=== PATIENT | female | born 1950 | race Caucasian/White ===

== ENCOUNTER 2016-05-17 12:55 | Outpatient (RCR) | payer BC ==
[~2016-05-17 12:55] MED LIST: CALC-80 PO; CALC-850 PO; CEPH500C PO; CHOL10003 PO; E400C PO; ESTR1TAB66 PO; EXEM25TA4 PO; FLUO20CA42 PO; GLIP10TA13 PO; HYDR-3583 PO; IMIP10TA3 PO; METF-380 PO; MYBETRIQ PO; NALT1TAB PO; OMG1KC PO; OSTEO BIFLEX PO; PNT40TEC PO; ROSU20TA14 PO; VENL150T4 PO
--- OUTSIDE RECORDS SUMMARY | 2016-05-17 12:58 | XMS REPORT | Continuity of Care Document ---
Author Author [facility] Organization [facility] Address Unknown Phone Unavailable Care Team Providers Care Roustabout Crew Name Role Phone Guicho Rhoades PCP [phone] Source Comments Some departments are not documenting in the electronic medical record. If you do not see the information that you expected, contact Release of Information in the Health Information Management department at [phone] for further assistance in locating additional records.[facility] Active Allergies and Adverse Reactions No Known Allergies Current Medications Prescription Sig. Disp. Refills Start End Date Status Date rosuvastatin (CRESTOR) 20 Take 20 mg by mouth Active mg tablet daily. venlafaxine (EFFEXOR) 75 Take 75 mg by mouth twice Active mg tablet daily. imipramine (TOFRANIL) 10 Take 10 mg by mouth at Active mg tablet bedtime daily. pantoprazole DR Take 40 mg by mouth Active (PROTONIX) 40 mg tablet daily. exemestane (AROMASIN) 25 Take 25 mg by mouth daily Active mg Tab after breakfast. vitamin E 400 unit Take 400 Units by mouth Active capsule daily. calcium carbonate/vitamin Take 1 Tab by mouth Active D-3 (OSCAL-500+D) 1250 daily. Calcium Carb mg/200 unit tablet 1250mg delivers 500mg elemental Ca cholecalciferol (Vitamin Take 1,000 Units by mouth Active D3) (VITAMIN D-3) 1,000 daily. units tablet Active Problems Problem Noted Date Breast cancer (HCC) 12/19/2011 Social History Tobacco Use Types Packs/Day Years Used Date Never Smoker Smokeless Tobacco: Never Used Tobacco Cessation: Counseling Given: Yes Comments: Alcohol Use Drinks/Week oz/Week Comments Yes 4 Cans of 2.4 beer Last Filed Vital Signs Vital Sign Reading Time Taken Blood Pressure 145/88 01/18/2013 10:04 AM [employer]RE [employer] Pulse 78 01/18/2013 10:04 AM [employer] Temperature 36.4 C (97.6 F) 01/18/2013 10:04 AM [employer] Respiratory Rate 18 01/18/2013 10:04 AM [employer] Height 1.778 m (5' 10") 01/04/2013 10:06 AM CDT Weight 88.451 kg (195 lb) 01/04/2013 10:06 AM CDT Body Mass Index 27.98 01/04/2013 10:06 AM CDT Oxygen Saturation 94% 12/20/2012 6:17 PM CDT Plan of Care Health Maintenance Due Date Last Done Comments Physical (Comprehensive) 08/30/1959 Exam Pertussis Vaccine 08/30/1963 Tetanus Vaccine 1969 Cervical Cancer Screening 1973 Breast Cancer Screening 1992 Colorectal Cancer 2002 Screening Shingles Vaccine 2012 Influenza Vaccine 11/06/2015 Results from Last 3 Months Not on file
[2016-05-17 13:04] LABS: BASOPHILS % (AUTO) 1 % (0-10); EOSINOPHILS # (AUTO) 0.2 10^3/uL (0.0-0.3); EOSINOPHILS % (AUTO) 3 % (0-10); LYMPHOCYTES # (AUTO) 1.6 X 10^3 (1.0-4.0); LYMPHOCYTES % (AUTO) 25 % (12-44); MEAN CORPUSCULAR HEMOGLOBIN 30 PG (25-34); MEAN CORPUSCULAR HGB CONC 34 G/DL (32-36); MEAN CORPUSCULAR VOLUME 88 FL (80-99); MEAN PLATELET VOLUME 10.5 FL (7.4-10.4); MONOCYTES # (AUTO) 0.5 X 10^3 (0.0-1.0); MONOCYTES % (AUTO) 8 % (0-12); NEUTROPHILS # (AUTO) 4.2 X 10^3 (1.8-7.8); NEUTROPHILS % (AUTO) 64 % (42-75); PLATELET COUNT 228 10^3/uL (130-400); RED BLOOD COUNT 4.56 10^6/uL (4.35-5.85); RED CELL DISTRIBUTION WIDTH 12.8 % (10.0-14.5); WHITE BLOOD COUNT 6.5 10^3/uL (4.3-11.0)
[2016-05-17] MEDS ORDERED: DENOSUMAB 60 MG/1 ML (PROLIA) CANCER CTR SQ SCH (13:30)
[2016-05-17 13:55] LABS: ALANINE AMINOTRANSFERASE 32 U/L (0-55); ALBUMIN 4.1 G/DL (3.2-4.5); ANION GAP 11 MMOL/L (5-14); ASPARTATE AMINO TRANSFERASE 21 U/L (5-34); BILIRUBIN,TOTAL 0.4 MG/DL (0.1-1.0); BLOOD UREA NITROGEN 14 MG/DL (7-18); BUN/CREATININE RATIO 16; CALCIUM 9.7 MG/DL (8.5-10.1); CARBON DIOXIDE 25 MMOL/L (21-32); CHLORIDE 105 MMOL/L (98-107); CREATININE SERUM 0.86 MG/DL (0.60-1.30); GFR ESTIMATED > 60; GLUCOSE 114 MG/DL (70-105); SODIUM 141 MMOL/L (135-145); TOTAL PROTEIN 6.9 G/DL (6.4-8.2)
[2016-07-29] MEDS ORDERED: METF500T4 PO ×2 (10:32→13:16)
[2016-07-29] MEDS ORDERED: CALC-694 PO (10:32)
[2016-07-29] MEDS ORDERED: VNL75T PO (10:32)
[2016-07-29] MEDS ORDERED: EXEM25TA4 PO (10:32)
[2016-07-29] MEDS ORDERED: GLUC-144 PO (10:32)
[2016-07-29] MEDS ORDERED: MIRA50TA PO (10:33)
[2016-07-29] MEDS ORDERED: AMOX-355 PO (13:16)
[2016-07-29] MEDS ORDERED: ASPI-808 PO (13:17)
== END 2016-08-15 | disposition home or self-care (01) ==
LOC: ONC 12:55
PROVIDERS: ATTEND Internal Medicine Hematology & Oncology
DX: C50.412 Malignant neoplasm of upper-outer quadrant of left female breast (principal); M81.0 Age-related osteoporosis without current pathological fracture; Z17.0 Estrogen receptor positive status [ER+]; Z92.21 Personal history of antineoplastic chemotherapy; Z79.811 Long term (current) use of aromatase inhibitors
CPT/HCPCS: 36415; 80053; 85025; 96372; 99213

== ENCOUNTER 2016-07-28 20:49 | Inpatient (IN) | payer BC ==
[~2016-07-28] VITALS: Ht 177.8 cm; Wt 91.6 kg
--- NOTE | 2016-07-28 21:05 | Diagnostic Imaging Report ---
Indication: New onset right-sided weakness. Comparison: None. Technique: Routine head CT was performed without contrast. Discussion: No intracranial hemorrhage, mass, midline shift, or hydrocephalus. The ventricles and sulci are normal size and configuration for age. The visualized orbits, paranasal sinuses, mastoid air cells, and calvarium are unremarkable. Impression: 1. Negative head CT. Dictated by: Dictated on workstation # [id number]
--- NOTE | 2016-07-28 21:06 | Diagnostic Imaging Report ---
Indication: Right-sided weakness. Discussion: Single AP view of the chest was obtained, comparison 01/04/2011. No focal consolidation, pleural fluid or pneumothorax. Normal heart size. No osseous abnormality. Impression: Negative portable chest. Dictated by: Dictated on workstation # [id number]
[2016-07-28 21:09] LABS: BASOPHILS % (AUTO) 1 % (0-10); EOSINOPHILS # (AUTO) 0.1 10^3/uL (0.0-0.3); EOSINOPHILS % (AUTO) 2 % (0-10); LYMPHOCYTES # (AUTO) 2.1 X 10^3 (1.0-4.0); LYMPHOCYTES % (AUTO) 30 % (12-44); MEAN CORPUSCULAR HEMOGLOBIN 30 PG (25-34); MEAN CORPUSCULAR HGB CONC 33 G/DL (32-36); MEAN CORPUSCULAR VOLUME 89 FL (80-99); MEAN PLATELET VOLUME 10.2 FL (7.4-10.4); MONOCYTES # (AUTO) 0.6 X 10^3 (0.0-1.0); MONOCYTES % (AUTO) 9 % (0-12); NEUTROPHILS # (AUTO) 4.2 X 10^3 (1.8-7.8); NEUTROPHILS % (AUTO) 59 % (42-75); PLATELET COUNT 245 10^3/uL (130-400); RED BLOOD COUNT 4.88 10^6/uL (4.35-5.85); WHITE BLOOD COUNT 7.1 10^3/uL (4.3-11.0)
[2016-07-28 21:23] LABS: PROTHROMBIN TIME PATIENT 12.7 SEC (12.2-14.7)
[2016-07-28 21:24] LABS: PARTIAL THROMBOPLASTIN TIME 24 SEC (24-35)
[2016-07-28 21:29] LABS: ALANINE AMINOTRANSFERASE 40 U/L (0-55); ALBUMIN 4.4 G/DL (3.2-4.5); ALCOHOL 52 MG/DL (<10); ANION GAP 14 MMOL/L (5-14); ASPARTATE AMINO TRANSFERASE 24 U/L (5-34); BILIRUBIN,TOTAL 0.4 MG/DL (0.1-1.0); BLOOD UREA NITROGEN 13 MG/DL (7-18); BUN/CREATININE RATIO 15; CALCIUM 9.4 MG/DL (8.5-10.1); CARBON DIOXIDE 19 MMOL/L (21-32); CHLORIDE 105 MMOL/L (98-107); CREATININE SERUM 0.89 MG/DL (0.60-1.30); GFR ESTIMATED > 60; GLUCOSE 194 MG/DL (70-105); MAGNESIUM 2.2 MG/DL (1.8-2.4); POTASSIUM 3.7 MMOL/L (3.6-5.0); SODIUM 138 MMOL/L (135-145); TOTAL PROTEIN 7.3 G/DL (6.4-8.2)
[2016-07-28 21:32] LABS: BILIRUBIN,URINE NEGATIVE (NEGATIVE); KETONES,URINE NEGATIVE (NEGATIVE); LEUKOCYTE ESTERASE ,URINE 1+ (NEGATIVE); NITRITE,URINE POSITIVE (NEGATIVE); PH,URINE 6 (5-9); PROTEIN,URINE NEGATIVE (NEGATIVE); UROBILINOGEN,URINE NORMAL (NORMAL)
[2016-07-28 21:35] LABS: TROPONIN I < 0.30 NG/ML (<0.30)
[2016-07-28] MEDS ORDERED: ASPIRIN 81 MG CHEW (CHILDREN'S ASA) ONE (21:37)
[2016-07-28] MEDS ORDERED: ASPIRIN 81 MG CHEW (CHILDREN'S ASA) PO ONE (21:45)
[2016-07-28 22:46] VITALS: BP 149/78
[2016-07-28 23:00] VITALS: BP 141/78
[2016-07-28 23:15] VITALS: BP 123/81
[2016-07-28] MEDS ORDERED: cefTRIAXone 1 GM (ROCEPHIN) VIAL ONE (23:15)
[2016-07-28] MEDS ORDERED: NS (IVPB) 250 ML ONE (23:15)
[2016-07-28] MEDS ORDERED: D5 1/2 NS 1000 ML IV SOLUTION 1,000 ML IV ONE (23:15)
[2016-07-28 23:30] VITALS: BP 136/75
[2016-07-28 23:45] VITALS: BP 120/71
[2016-07-29] VITALS (17 sets, daily range): BP systolic 109–150; BP diastolic 51–81
[2016-07-29] MEDS ORDERED: D5 1/2 NS 1000 ML IV SOLUTION 1,000 ML IV SCH (00:45)
[2016-07-29 03:54] LABS: BASOPHILS % (AUTO) 1 % (0-10); EOSINOPHILS # (AUTO) 0.1 10^3/uL (0.0-0.3); EOSINOPHILS % (AUTO) 1 % (0-10); LYMPHOCYTES # (AUTO) 1.7 X 10^3 (1.0-4.0); LYMPHOCYTES % (AUTO) 22 % (12-44); MEAN CORPUSCULAR HEMOGLOBIN 30 PG (25-34); MEAN CORPUSCULAR HGB CONC 34 G/DL (32-36); MEAN CORPUSCULAR VOLUME 89 FL (80-99); MEAN PLATELET VOLUME 10.7 FL (7.4-10.4); MONOCYTES # (AUTO) 0.8 X 10^3 (0.0-1.0); MONOCYTES % (AUTO) 10 % (0-12); NEUTROPHILS # (AUTO) 5.3 X 10^3 (1.8-7.8); NEUTROPHILS % (AUTO) 67 % (42-75); PLATELET COUNT 206 10^3/uL (130-400); RED BLOOD COUNT 4.46 10^6/uL (4.35-5.85); RED CELL DISTRIBUTION WIDTH 12.8 % (10.0-14.5)
[2016-07-29 04:11] LABS: ALANINE AMINOTRANSFERASE 34 U/L (0-55); ALBUMIN 3.7 G/DL (3.2-4.5); ANION GAP 11 MMOL/L (5-14); ASPARTATE AMINO TRANSFERASE 18 U/L (5-34); BILIRUBIN,TOTAL 0.5 MG/DL (0.1-1.0); BLOOD UREA NITROGEN 11 MG/DL (7-18); BUN/CREATININE RATIO 14; CALCIUM 8.5 MG/DL (8.5-10.1); CARBON DIOXIDE 21 MMOL/L (21-32); CHLORIDE 105 MMOL/L (98-107); GFR ESTIMATED > 60; GLUCOSE 296 MG/DL (70-105); PHOSPHORUS 3.7 MG/DL (2.3-4.7); POTASSIUM 3.9 MMOL/L (3.6-5.0); SODIUM 137 MMOL/L (135-145); TOTAL PROTEIN 6.4 G/DL (6.4-8.2)
--- NOTE | 2016-07-29 04:41 | ED Neurological Problem ---
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 STATES SHE WENT TO CLAP ET HER HANDS WOULD NOT MEET. PT REPORTS SHE NOTED NUMBNESS AT THAT TIME. PT A/OX3 AT THIS TIME Nursing Sepsis Screen: No Definite Risk Source: patient History of Present Illness Time seen by provider: 20:52 Initial Comments PT ARRIVES VIA POV PT STATES SHE WAS AT A [employer], AND APPROXIMATELY 45 MINUTES AGO, SHE BEGAN TO HAVE RIGHT FACIAL TINGLING, TINGLING TO RIGHT FINGERS--NOT REST OF HAND OR RIGHT ARM, AND NOTICED SHE WAS DRAGGING HER RIGHT LEG A LITTLE WHEN SHE WALKED. ALSO NOTICED WHEN SHE TRIED TO CLAP, HER HANDS WOULDN'T MEET C/O SLIGHT HEADACHE--RATES 2/10 NO NUMBNESS TO RIGHT LEG PT STATES SHE WAS VEERING TO THE RIGHT A LITTLE WHEN SHE WALKED NO VISION CHANGES NO DIFFICULTY SWALLOWING NO DIZZINESS NO NAUSEA/VOMITING NO PRIOR HISTORY OF SIMILAR PT STATES SHE HAS HAD 2 [employer]. PCP: DR. DOCKERY ONCOLOGIST: DR. LOPEZ Allergies and Home Medications Allergies Coded Allergies: No Known Drug Allergies (Unverified , 09/11/09) Home Medications Calcium Carbonate/Vitamin D3 1 Each Tab.chew, 2 EACH PO, (Reported) Cholecalciferol 1,000 Unit Tablet, 2,000 UNIT PO DAILY, (Reported) Exemestane 25 Mg Tablet, 25 MG PO DAILY, (Reported) Glipizide 10 Mg Tablet, 1 EACH PO DAILY, (Reported) Metformin Hcl 1,000 Mg Tablet, 1 EACH PO DAILY, (Reported) Naltrexone HCl/Bupropion HCl 1 Each Tablet.er, 1 EACH PO DAILY, (Reported) Pantoprazole Sodium 40 Mg Tablet.dr, 1 TAB PO DAILY, (Reported) Rosuvastatin Calcium 20 Mg Tablet, 1 EACH PO DAILY, (Reported) Venlafaxine Hcl 150 Mg Tab.osm.24, 150 MG PO DAILY, (Reported) Vitamin E Acetate 400 Unit Capsule, 400 UNIT PO DAILY, (Reported) [Mybetriq] , 50 MG PO DAILY, (Reported) Constitutional: no symptoms reported, No dizziness Eyes: No Symptoms Reported Ears, Nose, Mouth, Throat: no symptoms reported Respiratory: no symptoms reported Cardiovascular: no symptoms reported Gastrointestinal: no symptoms reported Genitourinary: no symptoms reported Musculoskeletal: see HPI Skin: no symptoms reported Psychiatric/Neurological: See HPI Endocrine: No Symptoms Reported, Other (ACCUCHECK WAS 195 THIS AM AT HOME) Hematologic/Lymphatic: No Symptoms Reported Past Wmxreqw-Vyosgr-Fwlzfw Hx Patient Social History Alcohol Use: Occasionally Uses Recreational Drug Use: No Smoking Status: Never a Smoker Recent Foreign Travel: No Contact w/Someone Who Travel: No Recent Infectious Disease Expo: No Recent Hopitalizations: No Physical Abuse Screen: No Sexual Abuse: No Seasonal Allergies Seasonal Allergies: No Surgeries HX Surgeries: Yes (LEFT BREAST LUMPECTOMY; CARDIAC CATH--NO INTERVENTION) Surgeries: Breast Respiratory Hx Respiratory Disorders: No Cardiovascular Hx Cardiac Disorders: Yes Cardiac Disorders: High Cholesterol Neurological Hx Neurological Disorders: No Reproductive System Hx Reproductive Disorders: No Sexually Transmitted Disease: No Genitourinary Hx Genitourinary Disorders: Yes (over active bladder on medication) Gastrointestinal Hx Gastrointestinal Disorders: No Musculoskeletal Hx Musculoskeletal Disorders: Yes Musculoskeletal Disorders: Arthritis Endocrine Hx Endocrine Disorders: Yes (RECENTLY DIAGNOSED) Endocrine Disorders: Diabetes, Non-Insulin dep HEENT HX ENT Disorders: Yes HEENT Disorders: Eye Injury Loss of Vision: Left Cancer Hx Cancer: Yes (LEFT BREAST CANCER 2010--S/P LUMPECTOMY, CHEMO AND 33 ROUNDS OF RADIATION) Cancer: Breast Psychosocial Hx Psychiatric Problems: Yes Behavioral Health Disorders: Anxiety, Depression Integumentary HX Skin/Integumentary Disorder: No Blood Transfusions Hx Blood Disorders: No Physical Exam Vital Signs Vital Sign - Last 12Hours 07/28/16 21:00 Temp 98.8 Pulse 69 Resp 24 B/P (MAP) 177/111 Pulse Ox 95 O2 Delivery Room Air Capillary Refill : Less Than 3 Seconds General Appearance: WD/WN, no apparent distress, other (TEARFUL) HEENT: PERRL/EOMI, normal ENT inspection, TMs normal, pharynx normal, other ( TONGUE IS MIDLINE, NO FACIAL DROOP) Neck: non-tender, full range of motion, supple, normal inspection, No carotid bruit Respiratory: normal breath sounds, no respiratory distress, no accessory muscle use Cardiovascular: normal peripheral pulses, regular rate, rhythm, no edema, no gallop, no JVD, no murmur Peripheral Pulses: 2+ Dorsalis Pedis (R), 2+ Left Dors-Pedis (L), 2+ Radial Pulses (R), 2+ Radial Pulses (L) Gastrointestinal: normal bowel sounds, non tender, soft, no organomegaly, no pulsatile mass Back: normal inspection, no CVA tenderness, no vertebral tenderness Extremities: normal range of motion, non-tender, normal inspection, no pedal edema, no calf tenderness, normal capillary refill Neurologic/Psychiatric: long term II-XII nml as tested, alert, oriented x 3, No aphasia, No EOM palsy, No facial droop, other (SUBJECTIVE PARESTHESIAS TO RIGHT SIDE OF FACE, INCLUDING FOREHEAD, BUT HAS SENSATION TO LIGHT TOUCH. VERY SLIGHT WEAKNESS TO RIGHT ARM AND RIGHT LEG, WITH VERY SLIGHT PRONATOR DRIFT TO RIGHT ARM, BUT NO DRIFT ON RIGHT LEG. GAIT NOT ASSESSED DURING ER STAY) Crainal Nerves: normal hearing, normal speech, PERRL Coordination/Gait: normal finger to nose Motor/Sensory: pronator drift (R) (SLIGHT), weak motor strength RUE (SLIGHT), weak motor strength RLE (SLIGHT) Skin: normal color, warm/dry Stroke Onset of Symptoms Date of Onset of Symptoms: July 28, 2016 Onset of Symptoms: Yes (45 MINUTES PRIOR TO ARRIVAL) Symptoms onset unknown: No NIH Stroke Scale Assessment Level of Consciousness: 0=Alert Level of Consciousness-Questio: 0=Answers both month/age LOC Commands: 0=Performs both tasks Gaze: 0=Normal Visual Reed: 0=No visual loss Facial Movement (Facial Paresi: 0=Normal symmetrical mnt Motor Function-Arms Right: 1=Drift Motor Function-Arms Left: 0=No drift Motor Function-Legs Right: 0=No drift Motor Function-Legs Left: 0=No drift Limb Ataxia: 0=Absent Sensory: 0=Normal:no loss Best Language: 0=No aphasia Dysarthria: 0=Normal Extinction & Inattention: 0=No abnormality Stroke Thrombolytic Exclusion Age 18 or Over: Yes Acute intenal hemorrhage: No History of CVA: No Uncontrolled Coagulation Defec: No Intracranial Hemorrhage: No Severe Hypertension: Yes GI or Bleed: No Subarachnoid Hemorrhage: No Intracranial Neoplasm/Aneurysm: No Oral Anticoagulants: No Surgery or Trauma: No Puncture of Non-Compressible V: No Recent CPR: No Diabetic Hemorrhagic Retinopat: No Organ Biopsy: No Recent Obstetric Delivery: No Glucose: No Significant Hepatic Dysfunctio: No NIH Stoke Scale >22: No Bacterial Endocarditis: No Pericarditis: No Improving Symptoms: Yes Platelets: No TPA Contraindication: No IV - TPa Received IV - TPa Procedure Performed?: No (DISCUSSED WITH [facility] AND TPA WAS NOT ADVISED DUE TO LOW NIH SCORE) Progress/Results/Core Measures Results/Orders Lab Results Laboratory Tests Test 07/28/16 21:02 07/28/16 21:08 Range/Units White Blood Count 7.1 4.3-11.0 10^3/uL Red Blood Count 4.88 4.35-5.85 10^6/uL Hemoglobin 14.4 11.5-16.0 G/DL Hematocrit 43 35-52 % Mean Corpuscular Volume 89 80-99 FL Mean Corpuscular Hemoglobin 30 25-34 PG Mean Corpuscular Hemoglobin Concent 33 32-36 G/DL Red Cell Distribution Width 13.0 10.0-14.5 % Platelet Count 245 130-400 10^3/uL Mean Platelet Volume 10.2 7.4-10.4 FL Neutrophils (%) (Auto) 59 42-75 % Lymphocytes (%) (Auto) 30 12-44 % Monocytes (%) (Auto) 9 0-12 % Eosinophils (%) (Auto) 2 0-10 % Basophils (%) (Auto) 1 0-10 % Neutrophils # (Auto) 4.2 1.8-7.8 X 10^3 Lymphocytes # (Auto) 2.1 1.0-4.0 X 10^3 Monocytes # (Auto) 0.6 0.0-1.0 X 10^3 Eosinophils # (Auto) 0.1 0.0-0.3 10^3/uL Basophils # (Auto) 0.0 0.0-0.1 10^3/uL Prothrombin Time 12.7 12.2-14.7 SEC INR Comment 1.0 0.8-1.4 Activated Partial Thromboplast Time 24 24-35 SEC D-Dimer < 0.27 0.00-0.49 UG/ML Sodium Level 138 135-145 MMOL/L Potassium Level 3.7 3.6-5.0 MMOL/L Chloride Level 105 98-107 MMOL/L Carbon Dioxide Level 19 L 21-32 MMOL/L Anion Gap 14 5-14 MMOL/L Blood Urea Nitrogen 13 7-18 MG/DL Creatinine 0.89 0.60-1.30 MG/DL Estimat Glomerular Filtration Rate > 60 BUN/Creatinine Ratio 15 Glucose Level 194 H 70-105 MG/DL Calcium Level 9.4 8.5-10.1 MG/DL Magnesium Level 2.2 1.8-2.4 MG/DL Total Bilirubin 0.4 0.1-1.0 MG/DL Aspartate Amino Transf (AST/SGOT) 24 5-34 U/L Alanine Aminotransferase (ALT/SGPT) 40 0-55 U/L Alkaline Phosphatase 80 40-136 U/L Troponin I < 0.30 <0.30 NG/ML Total Protein 7.3 6.4-8.2 G/DL Albumin 4.4 3.2-4.5 G/DL Serum Alcohol 52 H <10 MG/DL Glucometer 185 H 70-110 MG/DL My Orders Orders - MADELYN DOWD DO Cbc With Automated Diff (07/28/16 20:51) Protime With Inr (07/28/16 20:51) Partial Thromboplastin Time (07/28/16 20:51) Comprehensive Metabolic Panel (07/28/16 20:51) Fibrin Degradation Products (07/28/16 20:51) Troponin I (07/28/16 20:51) Ua Culture If Indicated (07/28/16 20:51) Chest 1 View, Ap/Pa Only (07/28/16 20:51) Ekg Tracing (07/28/16 20:51) Nothing By Mouth (07/29/16 Breakfast) Accucheck Stat ONCE (07/28/16 20:51) Saline Lock/Iv-Start (07/28/16 20:51) Saline Lock/Iv-Start (07/28/16 20:51) Vital Signs-Stroke Q1H (07/28/16 20:51) Ct Head Wo-R/O Stroke (07/28/16 20:51) O2 (07/28/16 20:51) Intake & Output 06,14,22 (07/28/16 20:51) Monitor-Rhythm Ecg Trace Only (07/28/16 20:51) Dysphagia Screening Tool (07/28/16 20:51) Post Thrombolytic Adminstratio (07/28/16 20:51) Alcohol (07/28/16 21:04) Drug Screen Stat (Urine) (07/28/16 21:04) Magnesium (07/28/16 21:04) Vital Signs/I&O Vital Sign - Last 12Hours 07/28/16 21:00 Temp 98.8 Pulse 69 Resp 24 B/P (MAP) 177/111 Pulse Ox 95 O2 Delivery Room Air Blood Pressure Mean: 73 Point of Care Testing Finger Stick Blood Glucose: 185 Progress Note : Progress Note BP DOWN WITHOUT TREATMENT PT STATES TINGLING IN RIGHT FINGERS IS IMPROVING AT TIME OF ADMIT, AND IS ALMOST BACK TO NORMAL HEADACHE IS EASING ECG Initial ECG Impression Time: 21:36 Initial ECG Rate: 67 Initial ECG Rhythm: Normal Sinus Initial ECG Impression: Normal Initial ECG Comparisson: No Previous ECG Available Diagnostic Imaging Comments CXR--NO ACUTE PROCESS CT HEAD--NO ACUTE PROCESS PER RADIOLOGIST REPORTS @ 2110 Reviewed: Reviewed by Me Departure Communication Progress Notes 2112--CALLED [facility], SPOKE WITH DR. GARCIA, NEUROLOGIST. HE DOES NOT ADVISE TPA DUE TO LOW STROKE SCALE AND IMPROVING SYMPTOMS-FEELS RISKS OUTWEIGH BENEFITS. DOES ADVISED 81 MG ASPIRIN NOW AND DAILY 2113--SPOKE WITH DR. ELLIS, ACCEPTS PT FOR ADMIT TO ICU, WILL OBTAIN MRI, CAROTID DOPPLER AND ECHOCARDIOGRAM, AND CONSULT CARDIOLOGY 2117-=-ATTEMPTING TO CONTACT DR. VEGA, MESSAGE LEFT ON CELL 2125--SPOKE WITH DR. VEGA AND INFORMED OF CONSULT. Impression Impression: Primary Impression: CVA WITH RIGHT SIDE WEAKNESS AND PARESTHESIAS Additional Impressions: Labile hypertension NIDDM Hyperlipemia UTI (urinary tract infection) Disposition: ADMITTED INPATIENT Condition: Improved Decision to Admit Reason: Admit from ER (General) Decision to Admit/Date: July 28, 2016 Time/Decision to Admit Time: 21:15 Departure-Patient Inst. Referrals: RENA DOCKERY MD (PCP) Primary Care Physician MADELYN DOWD DO July 29, 2016 04:41
[2016-07-29] MEDS ORDERED: MAGNESIUM 1 GM/100 ML IVPB 100 ML IV SCH (06:00)
[2016-07-29] MEDS ORDERED: inSUlin (REGULAR) HUMAN 1 UNIT/0.01 ML (CHARGE PER UNIT) SC SCH (06:00)
[2016-07-29] MEDS ORDERED: KCL 20 MEQ TAB (K-DUR) PO SCH (06:00)
[2016-07-29] MEDS ORDERED: POTASSIUM CL 10MEQ/50ML IVPB 50 ML IV SCH (06:00)
--- NOTE | 2016-07-29 06:14 | Pulmonary Consultation ---
History of Present Illness History of Present Illness Date of Consultation 07/29/16 06:08 Date of Admission History of Present Illness 65yo presented to ED secondary to right sided nubness and weakness onset 35min prior to arrival. Pt was at [employer] and she noticed she could not clap. Upon ED arrival her NIH was 1 and resolved to NIH of 0 upon ICU admission. No prior hx of stroke like symptoms. I am consulted for ICU management. Head CT is negative. found to have UTI and rocephin has been started. Allergies and Home Medications Allergies Coded Allergies: No Known Drug Allergies (Unverified , 09/11/09) Home Medications Calcium Carbonate/Vitamin D3 1 Each Tab.chew, 2 EACH PO, (Reported) Cholecalciferol 1,000 Unit Tablet, 2,000 UNIT PO DAILY, (Reported) Exemestane 25 Mg Tablet, 25 MG PO DAILY, (Reported) Glipizide 10 Mg Tablet, 1 EACH PO DAILY, (Reported) Metformin Hcl 1,000 Mg Tablet, 1 EACH PO DAILY, (Reported) Naltrexone HCl/Bupropion HCl 1 Each Tablet.er, 1 EACH PO DAILY, (Reported) Pantoprazole Sodium 40 Mg Tablet.dr, 1 TAB PO DAILY, (Reported) Rosuvastatin Calcium 20 Mg Tablet, 1 EACH PO DAILY, (Reported) Venlafaxine Hcl 150 Mg Tab.osm.24, 150 MG PO DAILY, (Reported) Vitamin E Acetate 400 Unit Capsule, 400 UNIT PO DAILY, (Reported) [Mybetriq] , 50 MG PO DAILY, (Reported) Past Mpnrtjo-Qlzptb-Mkntdp Hx Patient Social History Alcohol Use: Occasionally Uses Recreational Drug Use: No Smoking Status: Never a Smoker Recent Foreign Travel: No Contact w/Someone Who Travel: No Recent Infectious Disease Expo: No Recent Hopitalizations: No Physical Abuse Screen: No Sexual Abuse: No Seasonal Allergies Seasonal Allergies: No Surgeries HX Surgeries: Yes (LEFT BREAST LUMPECTOMY; CARDIAC CATH--NO INTERVENTION) Surgeries: Breast Respiratory Hx Respiratory Disorders: No Cardiovascular Hx Cardiac Disorders: Yes Cardiac Disorders: High Cholesterol Neurological Hx Neurological Disorders: No Reproductive System Hx Reproductive Disorders: No Sexually Transmitted Disease: No Genitourinary Hx Genitourinary Disorders: Yes (over active bladder on medication) Gastrointestinal Hx Gastrointestinal Disorders: No Musculoskeletal Hx Musculoskeletal Disorders: Yes Musculoskeletal Disorders: Arthritis Endocrine Hx Endocrine Disorders: Yes (RECENTLY DIAGNOSED) Endocrine Disorders: Diabetes, Non-Insulin dep HEENT HX ENT Disorders: Yes HEENT Disorders: Eye Injury Loss of Vision: Left Cancer Hx Cancer: Yes (LEFT BREAST CANCER 2010--S/P LUMPECTOMY, CHEMO AND 33 ROUNDS OF RADIATION) Cancer: Breast Psychosocial Hx Psychiatric Problems: Yes Behavioral Health Disorders: Anxiety, Depression Integumentary HX Skin/Integumentary Disorder: No Blood Transfusions Hx Blood Disorders: No Review of Systems Constitutional: Malaise, Weakness, No: Chills, Fever, Other, Sweats Eyes: No: Conjunctivae inflammation, Eyelid inflammation, Other, Pain, Redness , Vision change ENT: No: Ear discharge, Ear pain, Mouth pain, Mouth swelling, Nose congestion, Nose discharge, Nose pain, Other, Throat pain, Throat swelling Respiratory: No: Cough, Dry, Hemoptysis, Other, Pleuritic Pain, SOB with excertion, Shortness of breath, Sputum, Wheezing, Wheezing Cardiovascular: Lt Headedness, No: Chest Pain, Edema, Orthopnea, Other, Palpitations, Paroxysmal Noc. Dyspnea Gastrointestinal: No: Abdominal Pain, Constipation, Diarrhea, Hematochezia, Melena, Nausea, Other, Vomiting Genitourinary: No Dysuria, No Frequency, No Incontinence, No Hematuria, No Retention, No Other Musculoskeletal: No: arm pain, back pain, foot pain, hand pain, leg pain, neck pain, other, shoulder pain Skin: No: Bruising, Jaundice, Lesions, Other, Rash Neurological: Change in speech, Confusion, Incoordination, Numbness, Weakness, No: Seizures Exam Exam Vital Signs Date Time Temp Pulse Resp B/P (MAP) Pulse Ox O2 Delivery O2 Flow Rate FiO2 07/29/16 04:00 99.5 59 19 109/55 96 07/29/16 04:00 97 07/29/16 03:00 68 16 125/63 95 07/29/16 02:00 67 16 110/60 95 07/29/16 01:30 74 12 130/66 97 07/29/16 01:00 67 17 113/51 95 07/29/16 01:00 68 07/29/16 00:30 67 20 119/54 96 07/29/16 00:00 64 17 129/70 99 07/29/16 00:00 97 07/28/16 23:45 65 8 120/71 97 07/28/16 23:30 67 12 136/75 96 07/28/16 23:15 67 23 123/81 96 07/28/16 23:00 65 17 141/78 96 07/28/16 22:54 68 07/28/16 22:46 98.2 67 16 149/78 96 07/28/16 22:27 66 20 94 07/28/16 21:00 98.8 69 24 177/111 95 Room Air I & O 07/29/16 07:00 Intake Total 250 ml Balance 250 ml General Appearance: No Apparent Distress, WD/WN, Anxious HEENT: PERRL/EOMI, Pharynx Normal Neck: Full Range of Motion, Normal Inspection, Non Tender, Supple Respiratory: Lungs Clear, Normal Breath Sounds, No Accessory Muscle Use, No Respiratory Distress, Accessory Muscle Use Cardiovascular: Regular Rate, Rhythm, No Edema, No JVD, Normal Peripheral Pulses Capillary Refill: Less Than 3 Seconds Peripheral Pulses: 2+ Dorsalis Pedis (R), 2+ Left Dors-Pedis (L), 2+ Radial Pulses (R), 2+ Radial Pulses (L) Gastrointestinal: normal bowel sounds, non tender, soft, no organomegaly, no pulsatile mass Extremity: Normal Capillary Refill, Normal Inspection, Normal Range of Motion Neurologic/Psychiatric: Alert, Oriented x3 Skin: Normal Color Lymphatic: No Adenopathy Results Lab Laboratory Tests 07/28/16 21:02 07/29/16 03:37 Assessment/Plan Assessment/Plan TIA -NIH is now 0. All symptoms resolved -carotid dopplers, echo, brain MRI are pending UTI -Rocephin hx of breast cancer NIDDM Pt is doing much better will make her ICU step down status. 255 45 min was spent with patient Clinical Quality Measures DVT/VTE Risk/Contraindication: Risk Factor Score Per Nursin RFS Level Per Nursing on Admit: 3=High Stroke: Date of last known well: July 28, 2016 Symptoms onset unknown: No JOHNNY IBARRA DO July 29, 2016 06:14
[2016-07-29] MEDS: inSUlin (REGULAR) HUMAN 1 UNIT/0.01 ML (CHARGE PER UNIT) SC SCH ×2 (06:57→11:37)
--- NOTE | 2016-07-29 08:24 | Short Stay Summary-Hospitalist ---
HPI History of Present Illness: HPI/Chief Complaint CC: TIA versus CVA HPI: This is a 65yoWF clinic patient of Dr Rhoades'isaiah that presents to the ER w/ slurred speech and dysarthria 20 minutes before symptoms. Stroke protocol was initiated and CT brain was normal and her symptoms improved while w/u ensued. stroke center was contacted by Dr Ortega in ER and tpa was not indicated since her symptoms were improving. By the time she arrived in the ICU her symptoms were completely resolved. Currently she is doing well and wants to go home. I informed her that we needed a few more tests that included carotid USG, ECHO and MRI and as long as they were normal we would do our best to DC her home for further w/u by PCP. 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[employer]) Alcohol Use: Occasionally Uses Recreational Drug Use: No Smoking Status: Never a Smoker Physical Abuse Screen: No Sexual Abuse: No Recent Foreign Travel: No Contact w/other who traveled: No Recent Hopitalizations: No Recent Infectious Disease Expo: No Seasonal Allergies Seasonal Allergies: No Surgeries HX Surgeries: Yes (LEFT BREAST LUMPECTOMY; CARDIAC CATH--NO INTERVENTION) Surgeries: Breast Respiratory Hx Respiratory Disorders: No Cardiovascular Hx Cardiovascular Disorders: Yes Cardiac Disorders: High Cholesterol Neurological Hx Neurological Disorders: No Reproductive System Hx Reproductive Disorders: No Sexually Transmitted Disease: No Genitourinary Hx Genitourinary Disorders: Yes (over active bladder on medication) Gastrointestinal Hx Gastrointestinal Disorders: No Musculoskeletal Hx Musculoskeletal Disorders: Yes Musculoskeletal Disorders: Arthritis Endocrine Hx Endocrine Disorders: Yes (RECENTLY DIAGNOSED) Endocrine Disorders: Diabetes, Non-Insulin dep HEENT HX ENT Disorders: Yes HEENT Disorders: Eye Injury Loss of Vision: Left Cancer Hx Cancer: Yes (LEFT BREAST CANCER 2010--S/P LUMPECTOMY, CHEMO AND 33 ROUNDS OF RADIATION) Cancer: Breast Psychosocial Hx Psychiatric Problems: Yes Behavioral Health Disorders: Anxiety, Depression Integumentary HX Skin/Integumentary Disorder: No Blood Transfusions Hx Blood Disorders: No Review of Systems Constitutional: see HPI, weakness EENTM: no symptoms reported Respiratory: no symptoms reported Cardiovascular: no symptoms reported Gastrointestinal: no symptoms reported Musculoskeletal: no symptoms reported Skin: no symptoms reported Psychiatric/Neurological: Numbness, Paresthesia, Tingling All Other Systems Reviewed Negative Unless Noted: Yes Physical Exam Physical Exam Vital Signs Vital Sign - Last 12Hours 07/28/16 21:00 Temp 98.8 Pulse 69 Resp 24 B/P (MAP) 177/111 Pulse Ox 95 O2 Delivery Room Air Capillary Refill : Less Than 3 Seconds General Appearance: No Apparent Distress, WD/WN, Chronically ill Eyes: Bilateral Eye Normal Inspection, Bilateral Eye PERRL HEENT: PERRL/EOMI, Normal ENT Inspection, Pharynx Normal Neck: Full Range of Motion, Normal Inspection, Non Tender, Supple, Carotid Bruit Respiratory: Chest Non Tender, Lungs Clear, Normal Breath Sounds, No Accessory Muscle Use, No Respiratory Distress Cardiovascular: Regular Rate, Rhythm, No Edema, No Gallop, No JVD, No Murmur, Normal Peripheral Pulses Gastrointestinal: Normal Bowel Sounds, No Organomegaly, No Pulsatile Mass, Non Tender, Soft Back: Normal Inspection, No CVA Tenderness, No Vertebral Tenderness Extremity: Normal Capillary Refill, Normal Inspection, Normal Range of Motion, Non Tender, No Calf Tenderness, No Pedal Edema Neurologic/Psychiatric: Alert, Oriented x3, No Motor/Sensory Deficits, Normal Mood/Affect Skin: Normal Color, Warm/Dry Lymphatic: No Adenopathy Results Results/Procedures Lab Laboratory Tests 07/28/16 21:02 07/29/16 03:37 Short Stay Diagnosis Discharge Diagnosis-Short Stay Admission Diagnosis Assessment: TIA versus CVA with symptoms completely resolved not a tpa candidate DM long-standing Breast cancer hx HLP New onset HTN? Final Discharge Diagnosis Assessment: TIA versus CVA with symptoms completely resolved not a tpa candidate DM long-standing Breast cancer hx HLP New onset HTN? Conclusion Plan Plan: MRI brain Carotid USG Cardiology and Lumber Checker consultations appreciated Check HGBA1C Reconcile home meds Anti-platelet therapy? DC home hopefully today Clinical Quality Measures DVT/VTE Risk/Contraindication: Risk Factor Score Per Nursin RFS Level Per Nursing on Admit: 3=High Stroke: Date of last known well: July 28, 2016 Symptoms onset unknown: NATALI Centeno DO July 29, 2016 08:24
--- NOTE | 2016-07-29 08:30 | Speech Therapy Progress Note ---
Therapy Progress Note Orders received for speech consult. Speech services not available this date. Notified nursing. Nursing reports that patient did pass the bedside swallow assessment performed by nursing. Pt will likely have a short stay, but if she is still here, she will be seen by speech therapist 07/30/16. DELMAR ADAMSON PT July 29, 2016 08:30
[2016-07-29] MEDS ORDERED: ASPIRIN E.C. 81 MG (ECOTRIN) TAB PO SCH (09:00)
[2016-07-29] MEDS ORDERED: NS 100 ML (IVPB) BAG IV ONE (09:15)
[2016-07-29] MEDS ORDERED: IOHEXOL 350 MG/ML 100 ML (OMNIPAQUE 350) VIAL IV ONE (09:15)
--- NOTE | 2016-07-29 09:34 | Diagnostic Imaging Report ---
PROCEDURE: US Carotid Duplex Bilateral. TECHNIQUE: Multiple real-time grayscale images were obtained over the carotid arteries in various projections bilaterally. Additional duplex Doppler and color Doppler images were also obtained. INDICATION: Right-sided numbness. Slurred speech. FINDINGS: There is minimal atherosclerotic plaque seen on grayscale images. Color Doppler demonstrates patency of the common, internal, and external carotid arteries bilaterally. The vertebral arteries demonstrate retrograde flow on the right side and antegrade flow on the left side. The peak systolic velocities in the right ICA are: 102, 102, and 104 cm/s from proximal to distal. In the left ICA, the velocities are: 63, 93, and 107 cm/s. The ICA/CCA ratios are up to 0.7 on the right and up to 1.0 on the left. IMPRESSION: 1. Minimal plaque with the estimated underlying carotid stenosis in the range of 0-25% bilaterally. 2. There is retrograde flow in the right vertebral artery. This could relate to a proximal right subclavian artery stenosis. Further evaluation with a CTA of the neck is recommended. Report faxed to Dr. Armstrong at 9:35 a.m. 07/29/2016/cb Dictated by: Dictated on workstation # [id number]
[2016-07-29] MEDS ORDERED: GADOBUTROL 10 MMOL/10 ML (GADAVIST) VIAL IV ONE (10:00)
[2016-07-29] MEDS ORDERED: CALC-694 PO (10:32)
[2016-07-29] MEDS ORDERED: GLUC-144 PO (10:32)
[2016-07-29] MEDS ORDERED: EXEM25TA4 PO (10:32)
[2016-07-29] MEDS ORDERED: METF500T4 PO ×2 (10:32→13:16)
[2016-07-29] MEDS ORDERED: VNL75T PO (10:32)
[2016-07-29] MEDS ORDERED: MIRA50TA PO (10:33)
--- NOTE | 2016-07-29 10:37 | Diagnostic Imaging Report ---
PROCEDURE: MR imaging of the brain with and without contrast. TECHNIQUE: Multiplanar, multisequence MR imaging of the brain was performed with and without contrast. INDICATION: Right-sided weakness. 9 mL of Gadavist is administered intravenously. FINDINGS: There is no diffusion restriction to suggest an acute infarct or other diffusion abnormality. There are subcentimeter T2 hyperintense lesions seen in periventricular, deep and juxtacortical white matter seen as well as within the daquan not associated with mass effect or postcontrast enhancement suggestive of chronic microvascular ischemic changes. No hydrocephalus. No extra-axial fluid collection. No brain or extra-axial enhancing mass. The central vascular flow-voids appear grossly unremarkable. The internal auditory canals and inner ear structures appear symmetric. The pituitary gland is normal in size. No hypothalamic or pineal region mass. There is minimal mucosal thickening in the ethmoidal air cells. IMPRESSION: No acute infarct. No enhancing mass. Dictated by: Dictated on workstation # [id number]
--- NOTE | 2016-07-29 10:55 | Diagnostic Imaging Report ---
EXAMINATION: A CT angiogram of the neck was performed with intravenous contrast with coronal and sagittal MIP reconstructions performed in addition to thin section axial images. INDICATION: Lightheadedness. History of breast cancer. Reversal of flow seen in the right vertebral artery on the carotid ultrasound. FINDINGS: There is a prominent atherosclerotic plaque seen at the origin of the right subclavian artery with the estimated underlying stenosis in the 70-80% range. The calcified plaque results in artifact which limits the accuracy of CT assessment of the degree of stenosis. The aortic arch is patent. The origin of the great vessels is patent. The brachiocephalic artery is patent. The right common carotid artery is patent. There is tortuosity in the distal aspect of the right ICA with no significant stenosis. The right external carotid artery is patent. The left common carotid artery is patent. The left internal and external carotid arteries are both patent. The left vertebral artery is dominant and appears patent. The nondominant small right vertebral artery also appears patent. There is suggestion of a origin of the left BUTTONHOLE MARKER with a hypoplastic P1 segment of this artery on the left. The soft tissues in the neck demonstrate a nonspecific thyroid nodule on the left side measuring 0.9 cm in size. No lymphadenopathy of significance is seen. The osseous structures appear grossly unremarkable. IMPRESSION: There is calcified plaque at the origin of the right subclavian artery with an estimated underlying stenosis of 70-80%. Dictated by: Dictated on workstation # [id number]
[2016-07-29] MEDS ORDERED: ACETAMINOPHEN 500 MG TAB (TYLENOL) PO PRN (11:45)
--- NOTE | 2016-07-29 13:13 | Consultation-Cardiology ---
HPI-Cardiology Cardiology Consultation: Date of Consultation 07/29/16 Date of Admission Attending Physician Guicho Rhoades MD Admitting Physician Guicho Rhoades MD Consulting Physician Willian BRAGG MD HPI: Chief Complaint: TIA 65 year old lady with history of DM, HTN, Hyperlipidemia, who presents with episode of TIA. Symptoms including difficult speaking, right sided weakness and paresthesia. She had gait abnormality as well. Symptoms resolved in a couple of hours. No chest pain, shortness of breath or palpitations. Review of Systems-Cardiology Review of Systems Constitutional: No As described under HPI, No no symptoms reported, No chills, No fever, No lightheadedness, No malaise, No tiredness, No weight loss, No weight gain, No other Eyes: No As described under HPI, No no symptoms reported, No blindness, No blurred vision, No contact lenses, No drainage, No decreased acuity, No foreign body sensation, No glasses, No inflammation, No pain, No photophobia, No previous injury, No shadows, No tunnel vision, No other, No vision change Ears/Nose/Throat: No As described under HPI, No no symptoms reported, No chronic hearing loss, No epistaxis, No ear discharge, No ear pain, No loose teeth, No mouth pain, No mouth swelling, No nasal drainage, No nose pain, No recent hearing loss, No throat pain, No throat swelling, No ulcerations, No other Respiratory: No no symptoms reported, No As described under HPI, No cough, No orthopnea, No shortness of breath, No SOB with excertion, No SOB at rest, No stridor, No wheezing, No other Cardiovascular: No no symptoms reported, No As described under HPI, No chest pain, No edema, No irregular heart rate, No lightheadedness, No palpitations, No syncope, No other Gastrointestinal: No no symptoms reported, No As described under HPI, No abdomen distended, No abdominal pain, No blood streaked bowels, No constipation , No diarrhea, No difficulty swallowing, No nausea, No poor appetite, No poor fluid intake, No rectal bleeding, No vomiting, No other, No nausea/vomiting/ diarrhea, No stool coloration changes Genitourinary: No no symptoms reported, No As described under HPI, No burning, No dysuria, No discharge, No frequency, No flank pain, No hematuria, No incontinence, No pain, No urgency, No other, No urine frequency changes, No urine coloration changes Musculoskeletal: No no symptoms reported, No As describe under HPI, No back pain, No gout, No joint pain, No joint swelling, No muscle pain, No muscle stiffness, No neck pain, No other Skin: No no symptoms reported, No As described under HPI, No change in color, No change in hair/nails, No dryness, No lesions, No lumps, No rash, No other, No skin related problems, No ulcerations, No rash on exposed areas, No ulcerations on exposed areas Psychiatric/Neurological: As described under HPI Hematologic: No no symptoms reported, No As described under HPI, No anemia, No blood clots, No easy bleeding, No easy bruising, No swollen glands, No other, No bleeding abnormalities All Other Systems Reviewed Negative Unless Noted: Yes WKB-Pegwcn-Fgfsfp Hx Patient Social History Marrital Status: 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 Allergies and Home Medications Allergies Coded Allergies: No Known Drug Allergies (Unverified , 09/11/09) Home Medications Amoxicillin/Potassium Clav 1 Each Tablet, 1 EACH PO BID, #8 Prescribed by: NATALI ELLIS on 07/29/16 1316 Aspirin 325 Mg Tablet, 325 MG PO DAILY, #30 Prescribed by: NATALI ELLIS on 07/29/16 1317 Calcium Carbonate/Vitamin D3 1 Each Tablet, 1 TAB PO BID, (Reported) Cholecalciferol 1,000 Unit Tablet, 2,000 UNIT PO DAILY, (Reported) Exemestane 25 Mg Tablet, 25 MG PO DAILY, (Reported) Glucosamine HCl/Chondr Dixon A Na 1 Each Tablet, 1 TAB PO BID, (Reported) Metformin HCl 500 Mg Tablet, 500 MG PO BID for 30 Days Do not start taking until 07/31/16 due to use of contrast for testing Prescribed by: NATALI ELLIS on 07/29/16 1316 Mirabegron 50 Mg Tab.er.24h, 50 MG PO DAILY, (Reported) LAST FILLED 02-26-16 #30 Pantoprazole Sodium 40 Mg Tablet.dr, 40 MG PO DAILY, (Reported) Rosuvastatin Calcium 20 Mg Tablet, 20 MG PO DAILY, (Reported) Venlafaxine HCl 75 Mg Tab, 75 MG PO BID, (Reported) Vitamin E Acetate 400 Unit Capsule, 400 UNIT PO DAILY, (Reported) Physical Exam-Cardiology Physical Exam Vital Signs/I&O Vital Sign - Last 12Hours 07/29/16 07/29/16 07/29/16 07/29/16 03:00 04:00 04:00 05:00 Temp 99.5 Pulse 68 59 61 Resp 16 19 16 B/P (MAP) 125/63 109/55 127/68 Pulse Ox 95 97 96 95 07/29/16 07/29/16 07/29/16 06:00 07:00 08:00 Temp 98.8 Pulse 61 62 Resp 19 B/P (MAP) 110/76 Pulse Ox 92 Capillary Refill : Less Than 3 Seconds Constitutional: No appears stated age, No AAO x 3, No apparent distress, No PERRL, No well-developed, No well-nourished, No other HEENT: No PERRL, No normal ENT inspection, No TMs normal, No pharynx normal, No scleral icterus (R), No scleral icterus (L), No pale conjunctivae (R), No pale conjunctivae (L), No photophobia, No TM abnormal (R), No TM abnormal (L), No pharyngeal erythema, No tonsillar exudate, No other, No discharge, No EOMI, No hearing is well preserved, No hard of hearing, No oral hygience is good, No ulceration, No xanthelasmas are seen Neck: No non-tender, No full range of motion, No supple, No normal inspection, No carotid bruit, No limited range of motion, No lymphadenopathy (R), No lymphadenopathy (L), No tender lateral, No tender midline, No thyromegaly, No other, No carotid pulses are 2 + bilaterally, No with good upstrokes Respiratory: No accessory muscle use, No respiratory distress, No chest tender , No chest expansion is symmetric, No chest is bilaterally symmetric, No lungs clear to percussion, No lungs clear to auscultation, No crackles, No rhonchi, No rales, No stridor, No wheezing, No pleural rub, No other Cardiovascular: regular rate-rhythm, No irregularly irregular, No extra beats, No parasternal heave is noted, No JVD, No edema, No bradycardia, No tachycardia , No point of maximal impulse, No cardiac thrills are palpable, S1 and S2, No gallop/S3, No gallop/S4, No diastolic murmur, No systolic murmur, No friction rub, No click, No other Gastrointestinal: No tender, No soft, No round, No distended, No pulsatile mass , No organomegaly, No guarding, No rebound, No tenderness, No hernia, No mass, No audible bowel sounds, No abnormal bowel sounds, No abdominal bruits, No spleenomegaly, No other Rectal: deferred Extremities: No normal range of motion, No non-tender, No normal inspection, No pedal edema, No calf tenderness, No normal capillary refill, No pelvis stable , No calf tenderness, No inflammation, No pedal edema, No slow capillary refill , No swelling, No other, No abrasion, No clubbing, No cyanosis, No ecchymosis, No laceration, No no lower extremity edema bilateral, No significant edema, No tenderness, No wound Neurologic/Psychiatric: alert, normal mood/affect, oriented x 3 Skin: No normal color, No warm/dry, No cyanosis, No cool, No diaphoresis, No damp, No ecchymosis, No jaundice, No mottled, No pallor, No rash, No tattoos/ piercings, No ulcerations, No rash on exposed areas, No ulcerations on exposed areas, No other Data Review Labs Laboratory Tests 07/28/16 21:02: White Blood Count 7.1, Red Blood Count 4.88, Hemoglobin 14.4, Hematocrit 43, Mean Corpuscular Volume 89, Mean Corpuscular Hemoglobin 30, Mean Corpuscular Hemoglobin Concent 33, Red Cell Distribution Width 13.0, Platelet Count 245, Mean Platelet Volume 10.2, Neutrophils (%) (Auto) 59, Lymphocytes (%) (Auto) 30 , Monocytes (%) (Auto) 9, Eosinophils (%) (Auto) 2, Basophils (%) (Auto) 1, Neutrophils # (Auto) 4.2, Lymphocytes # (Auto) 2.1, Monocytes # (Auto) 0.6, Eosinophils # (Auto) 0.1, Basophils # (Auto) 0.0, Prothrombin Time 12.7, INR Comment 1.0, Activated Partial Thromboplast Time 24, D-Dimer < 0.27, Sodium Level 138, Potassium Level 3.7, Chloride Level 105, Carbon Dioxide Level 19L, Anion Gap 14, Blood Urea Nitrogen 13, Creatinine 0.89, Estimat Glomerular Filtration Rate > 60, BUN/Creatinine Ratio 15, Glucose Level 194H, Calcium Level 9.4, Magnesium Level 2.2, Total Bilirubin 0.4, Aspartate Amino Transf (AST /SGOT) 24, Alanine Aminotransferase (ALT/SGPT) 40, Alkaline Phosphatase 80, Troponin I < 0.30, Total Protein 7.3, Albumin 4.4, Serum Alcohol 52H 07/28/16 21:08: Glucometer 185H 07/28/16 21:26: Urine Color YELLOW, Urine Clarity CLEAR, Urine pH 6, Urine Specific [place] 1.010L, Urine Protein NEGATIVE, Urine Glucose (UA) 2+H, Urine Ketones NEGATIVE, Urine Nitrite POSITIVEH, Urine Bilirubin NEGATIVE, Urine Urobilinogen NORMAL, Urine Leukocyte Esterase 1+H, Urine RBC (Auto) NEGATIVE, Urine RBC NONE, Urine WBC 5-10H, Urine Crystals NONE, Urine Bacteria LARGEH, Urine Casts NONE, Urine Mucus NEGATIVE, Urine Culture Indicated YES, Urine Opiates Screen NEGATIVE, Urine Oxycodone Screen NEGATIVE, Urine Methadone Screen NEGATIVE, Urine Propoxyphene Screen NEGATIVE, Urine Barbiturates Screen NEGATIVE, Ur Tricyclic Antidepressants Screen NEGATIVE, Urine Phencyclidine Screen NEGATIVE, Urine Amphetamines Screen NEGATIVE, Urine Methamphetamines Screen NEGATIVE, Urine Benzodiazepines Screen NEGATIVE, Urine Cocaine Screen NEGATIVE, Urine Cannabinoids Screen NEGATIVE 07/29/16 03:37: White Blood Count 8.0, Red Blood Count 4.46, Hemoglobin 13.3, Hematocrit 40, Mean Corpuscular Volume 89, Mean Corpuscular Hemoglobin 30, Mean Corpuscular Hemoglobin Concent 34, Red Cell Distribution Width 12.8, Platelet Count 206, Mean Platelet Volume 10.7H, Neutrophils (%) (Auto) 67, Lymphocytes (%) (Auto) 22 , Monocytes (%) (Auto) 10, Eosinophils (%) (Auto) 1, Basophils (%) (Auto) 1, Neutrophils # (Auto) 5.3, Lymphocytes # (Auto) 1.7, Monocytes # (Auto) 0.8, Eosinophils # (Auto) 0.1, Basophils # (Auto) 0.0, Sodium Level 137, Potassium Level 3.9, Chloride Level 105, Carbon Dioxide Level 21, Anion Gap 11, Blood Urea Nitrogen 11, Creatinine 0.80, Estimat Glomerular Filtration Rate > 60, BUN/ Creatinine Ratio 14, Glucose Level 296H, Calcium Level 8.5, Magnesium Level 2.0 , Total Bilirubin 0.5, Aspartate Amino Transf (AST/SGOT) 18, Alanine Aminotransferase (ALT/SGPT) 34, Alkaline Phosphatase 64, Total Protein 6.4, Albumin 3.7, Phosphorus Level 3.7 07/29/16 08:37: Hemoglobin A1c 9.1H 07/29/16 11:33: Glucometer 145H Microbiology 07/28/16 Urine Culture - Preliminary, Resulted Probable Klebsiella/Enterobact ECG Impression ECG Initial ECG Rhythm: Normal Sinus A/P-Cardiology Assessment/Admission Diagnosis TIA, DM, HTN, Hyperlipidemia Plan Brain MRI - no acute stroke. CT head negative CTA neck - possible right subclavian stenosis ; no history of right upper extremity claudication. Carotid duplex - no severe stenosis TIA - full aspirin, thirty day event monitor. will require IVY. if all testing is negative, i.e. cryptogenic stroke, it could be secondary to atrial fibrillation and may require implantable loop recorder. HTN - stable Hyperlipidemia - on crestor she will follow up in cardiology office next Tuesday. Thank you for your consultation. Please call me if you have any questions. Mariela Bragg MD, FACP, FACC, FSCAI, FHRS, CCDS Interventional Cardiology Cardiac Electrophysiology Vascular Medicine and Endovascular Interventions Clinical Quality Measures DVT/VTE Risk/Contraindication: Risk Factor Score Per Nursin RFS Level Per Nursing on Admit: 3=High Stroke: Date of last known well: July 28, 2016 Symptoms onset unknown: Willian Phan MD July 29, 2016 13:13
[2016-07-29] MEDS ORDERED: AMOX-355 PO (13:16)
[2016-07-29] MEDS ORDERED: ASPI-808 PO (13:17)
[2016-07-29] MEDS ORDERED: VENlafaxine 75 MG (EFFEXOR) TAB PO SCH (17:00)
--- NOTE | 2016-07-29 18:09 | ECHOCARDIOGRAPHY REPORT ---
DATE OF SERVICE: 07/29/2016 TWO DIMENSIONAL ECHOCARDIOGRAM ORDERING PHYSICIAN: Elizabeth Armstrong DO DIAGNOSES: Cerebrovascular accident with right-sided weakness. FINDINGS: 1. Sinus rhythm. 2. Left atrial dimensions are upper limit of normal. Left atrial diameter is 3.8 cm. 3. Aortic root dimensions are normal. 4. Left ventricular systolic function is preserved. Left ventricular ejection fraction is 60% to 65%. Mild concentric LVH is present. Diastolic interventricular septal diameter is 1.3 cm. 5. There are no wall motion abnormalities. 6. Right heart size and function is normal. 7. There is no evidence of pericardial effusion. 8. There is mild diastolic dysfunction. 9. IVC diameter is 1.2 cm, which is normal. VALVULAR STRUCTURE OF THE HEART: There is trace tricuspid regurgitation with RVSP of 19 mmHg. Trace mitral regurgitation. There is no significant aortic valve or pulmonic valve pathology. CONCLUSION: 1. LV and RV size and function is normal. 2. LVEF is 60-65%. 3. There is no significant valvular heart disease. 4. The PA pressure is normal. 5. Mild diastolic dysfunction and mild concentric LVH is noted. 6. A transthoracic echocardiogram has moderate sensitivity and specificity for cardiac source of embolization. Transesophageal echocardiogram is recommended. Job ID: [id number] DocumentID: [id number] Dictated Date: 07/29/2016 14:35:44 Cotton Cleaner Date: 07/29/2016 15:34:50 Dictated By: BRENDAN VEGA MD
[2016-07-29] MEDS ORDERED: ROSUVASTATIN 20 MG (CRESTOR) TABLET PO SCH (21:00)
[2016-07-29] MEDS ORDERED: cefTRIAXone INJECTION 1,000 MG in NS (IVPB) 50 ML IV SCH (23:00)
[2016-07-30] MEDS ORDERED: PANTOPRAZOLE 40 MG (PROTONIX) TAB PO SCH (07:00)
[2016-07-30] MEDS ORDERED: NON-FORMULARY MEDICATION 1 EA EA (Mirabegron (Myrbetriq) 50 MG) PO SCH (09:00)
== END 2016-07-29 16:15 | disposition home or self-care (01) | DRG 69 ==
LOC: EDUNIT# 20:49 → ER 20:52 → ICU 21:15
PROVIDERS: ADMIT Internal Medicine; ATTEND Family Medicine
DX: G45.9 Transient cerebral ischemic attack, unspecified (principal); N39.0 Urinary tract infection, site not specified; R20.9 Unspecified disturbances of skin sensation; R29.898 Other symptoms and signs involving the musculoskeletal system; I10 Essential (primary) hypertension; E11.9 Type 2 diabetes mellitus without complications; E78.5 Hyperlipidemia, unspecified; F32.9 Major depressive disorder, single episode, unspecified; F41.9 Anxiety disorder, unspecified; Z85.3 Personal history of malignant neoplasm of breast; Z92.21 Personal history of antineoplastic chemotherapy; Z92.3 Personal history of irradiation
CPT/HCPCS: 36415; 70450; 70498; 70553; 71010; 80053; 80306; 80320; 81000; 82962; 83036; 83735; 84100; 84484; 85025; 85379; 85610; 85730; 87077; 87081; 87088; 87186; 93005; 93041; 93306; 93880

== ENCOUNTER 2016-08-26 07:41 | Outpatient (RCR) | payer BC ==
--- NOTE | 2016-07-30 08:15 | Speech Therapy Progress Note ---
Therapy Progress Note Speech pathology consult received and chart reviewed. The patient had a short stay at [facility] and has discharged at this time. If additional services are warranted, please reconsult speech pathology. Thank you! ANKIT ROBLES July 30, 2016 08:15
--- NOTE | 2016-07-30 12:31 | Physician Query Clarification ---
PQ-Intro New Diagnosis Admission/Discharge Admission Date: Discharge Date: The medical record reflects the following clinical scenario: History/Risk Factors: TIA VS CVA Clinical Findings: negative head CT - MRI no acute infarct Treatment: Symptoms completely resolved Question: What condition best reflects the above clinical scenario? Please document below. 1. TIA 2. TIA VS CVA 3. Other, with explanation of the clinical findings. 4. Clinically undetermined, no explanation for the clinical findings. PHYSICIAN RESPONSE What condition reflects above: 1 Please remember a lack of response to the above will prompt a phone page by [facility]/ coding staff. In responding to this query, please exercise your independent professional judgment. The purpose of this communication is to more accurately reflect the complexity of your patients condition. The fact that a question is asked does not imply that any particular answer is desired or expected. Thank you for your timely response to this clarification. Requestors name: [ ] Phone # [ ] THIS PHYSICIAN QUERY FORM IS A PERMANENT PART OF THE MEDICAL RECORD VALENTE MEYER July 30, 2016 12:31 NATALI ELLIS DO July 30, 2016 12:48
--- NOTE | 2016-08-04 15:32 | Physician Query-Final Dx ---
VALENTE MEYER 08/04/16 1532: Clinic Account Progress/Dx Physician Query: Please give diagnosis Please give a diagnosis for the ECG event recording thank you Date of Service July 29, 2016 at 16:21 Willian VEGA MD 08/05/16 1633: Clinic Account Progress/Dx Physician Query: Please give diagnosis DIAGNOSIS: Diagnosis TIA/CVA VALENTE MEYER August 04, 2016 15:32 Willian VEGA MD Aug 05, 2016 16:33
[~2016-08-26 07:41] MED LIST changes: +AMOX-355 PO; +ASPI-808 PO; +CALC-694 PO; +GLUC-144 PO; +METF500T4 PO; +MIRA50TA PO; +VNL75T PO
== END 2016-10-27 | disposition home or self-care (01) ==
LOC: CARD 07:41
PROVIDERS: ATTEND Internal Medicine Interventional Cardiology
DX: I63.9 Cerebral infarction, unspecified (principal); G45.9 Transient cerebral ischemic attack, unspecified
CPT/HCPCS: 93270

== ENCOUNTER → 2016-12-06 | Outpatient (CLI) | payer BC ==
--- NOTE | 2016-12-06 10:36 | Diagnostic Imaging Report ---
Bilateral diagnostic mammogram with tomography views. COMPARISON: 12/05/2015. INDICATION: History of breast cancer. CAD is utilized. FINDINGS: Again seen postoperative changes in the left breast with scarring and a biopsy clip is also seen without significant change from prior exams. The right breast demonstrates heterogeneously dense parenchyma which may decrease mammographic sensitivity. Benign-appearing calcifications are seen. Allowing for technique and positional differences, no suspicious change is seen. IMPRESSION: No significant change. ACR BI-RADS Category 2: Benign findings. Result letter will be mailed to the patient. Note: At least 10% of breast cancer is not imaged by mammography. Dictated by: Dictated on workstation # [id number]
== END ==
LOC: RAD 09:35
PROVIDERS: ATTEND Internal Medicine Hematology & Oncology
DX: C50.412 Malignant neoplasm of upper-outer quadrant of left female breast (principal)
CPT/HCPCS: 77066

== ENCOUNTER 2016-12-08 08:47 | Outpatient (RCR) | payer BC ==
[2016-12-08 09:13] LABS: BASOPHILS % (AUTO) 0 % (0-10); EOSINOPHILS # (AUTO) 0.3 10^3/uL (0.0-0.3); EOSINOPHILS % (AUTO) 5 % (0-10); HEMATOCRIT 42 % (35-52); LYMPHOCYTES # (AUTO) 1.3 X 10^3 (1.0-4.0); LYMPHOCYTES % (AUTO) 23 % (12-44); MEAN CORPUSCULAR HEMOGLOBIN 30 PG (25-34); MEAN CORPUSCULAR HGB CONC 33 G/DL (32-36); MEAN CORPUSCULAR VOLUME 89 FL (80-99); MEAN PLATELET VOLUME 10.6 FL (7.4-10.4); MONOCYTES # (AUTO) 0.4 X 10^3 (0.0-1.0); MONOCYTES % (AUTO) 8 % (0-12); NEUTROPHILS # (AUTO) 3.6 X 10^3 (1.8-7.8); NEUTROPHILS % (AUTO) 65 % (42-75); PLATELET COUNT 231 10^3/uL (130-400); RED BLOOD COUNT 4.73 10^6/uL (4.35-5.85); RED CELL DISTRIBUTION WIDTH 12.7 % (10.0-14.5); WHITE BLOOD COUNT 5.5 10^3/uL (4.3-11.0)
[2016-12-08 09:32] LABS: ALANINE AMINOTRANSFERASE 32 U/L (0-55); ALBUMIN 4.1 GM/DL (3.2-4.5); ALKALINE PHOSPHATASE 87 U/L (40-136); BILIRUBIN,TOTAL 0.7 MG/DL (0.1-1.0); BUN/CREATININE RATIO 18; CALCIUM 10.7 MG/DL (8.5-10.1); CARBON DIOXIDE 23 MMOL/L (21-32); CHLORIDE 104 MMOL/L (98-107); CREATININE SERUM 0.91 MG/DL (0.60-1.30); GFR ESTIMATED > 60; GLUCOSE 161 MG/DL (70-105); POTASSIUM 3.7 MMOL/L (3.6-5.0); SODIUM 139 MMOL/L (135-145); TOTAL PROTEIN 7.1 GM/DL (6.4-8.2)
[2016-12-08] MEDS ORDERED: DENOSUMAB 60 MG/1 ML (PROLIA) CANCER CTR SQ SCH (10:00)
== END 2017-03-08 | disposition home or self-care (01) ==
LOC: ONC 08:47
PROVIDERS: ATTEND Internal Medicine Hematology & Oncology
DX: C50.412 Malignant neoplasm of upper-outer quadrant of left female breast (principal); M81.0 Age-related osteoporosis without current pathological fracture; Z17.0 Estrogen receptor positive status [ER+]; Z92.21 Personal history of antineoplastic chemotherapy; Z79.811 Long term (current) use of aromatase inhibitors
CPT/HCPCS: 80053; 85025; 96372

== ENCOUNTER → 2017-04-07 | Outpatient (CLI) | payer BC ==
--- NOTE | 2017-04-07 16:11 | Diagnostic Imaging Report ---
INDICATION: Chronic back pain. TIME OF EXAM: 3:44 PM FINDINGS: Slight right convexity lumbar scoliotic curvature is seen. The vertebral body heights are maintained. No acute compression fractures identified. There is multilevel degenerative disc disease with variable disc space narrowing and marginal spurring. Mild atherosclerotic calcifications in the abdominal aorta are noted. IMPRESSION: Lumbar spondylosis and scoliosis. No acute bony abnormality is detected. Dictated by: Dictated on workstation # [id number]
--- NOTE | 2017-04-07 17:44 | Diagnostic Imaging Report ---
INDICATION: Chronic right hip pain. TIME OF EXAM: 3:43 p.m. FINDINGS: Two views of the right hip demonstrate normal femoroacetabular alignment. There is mild joint space narrowing. There is some mild spurring at the femoral head-neck junction. No fracture is identified. The rami are intact. IMPRESSION: Mild degenerative changes. No acute bony abnormality is detected. Dictated by: Dictated on workstation # [id number]
== END ==
LOC: RAD 14:46
PROVIDERS: ATTEND Internal Medicine
DX: M16.11 Unilateral primary osteoarthritis, right hip (principal); M47.816 Spondylosis without myelopathy or radiculopathy, lumbar region; M41.86 Other forms of scoliosis, lumbar region
CPT/HCPCS: 72100; 73502

== ENCOUNTER 2017-06-09 09:00 | Outpatient (RCR) | payer BC ==
[~2017-06-09 09:00] MED LIST changes: -METF500T4 PO; +METF500T5 PO
[2017-06-09 09:28] LABS: BASOPHILS % (AUTO) 0 % (0-10); EOSINOPHILS # (AUTO) 0.1 10^3/uL (0.0-0.3); EOSINOPHILS % (AUTO) 3 % (0-10); HEMATOCRIT 43 % (35-52); HEMOGLOBIN 14.2 G/DL (11.5-16.0); LYMPHOCYTES # (AUTO) 1.4 X 10^3 (1.0-4.0); LYMPHOCYTES % (AUTO) 27 % (12-44); MEAN CORPUSCULAR HEMOGLOBIN 30 PG (25-34); MEAN CORPUSCULAR HGB CONC 33 G/DL (32-36); MEAN CORPUSCULAR VOLUME 90 FL (80-99); MEAN PLATELET VOLUME 10.4 FL (7.4-10.4); MONOCYTES # (AUTO) 0.4 X 10^3 (0.0-1.0); MONOCYTES % (AUTO) 8 % (0-12); NEUTROPHILS # (AUTO) 3.2 X 10^3 (1.8-7.8); NEUTROPHILS % (AUTO) 62 % (42-75); PLATELET COUNT 232 10^3/uL (130-400); RED BLOOD COUNT 4.74 10^6/uL (4.35-5.85); RED CELL DISTRIBUTION WIDTH 13.3 % (10.0-14.5); WHITE BLOOD COUNT 5.2 10^3/uL (4.3-11.0)
[2017-06-09] MEDS ORDERED: DENOSUMAB 60 MG/1 ML (PROLIA) CANCER CTR SQ SCH (09:45)
[2017-06-09 09:54] LABS: ALBUMIN 4.5 GM/DL (3.2-4.5); BILIRUBIN,TOTAL 0.7 MG/DL (0.1-1.0); CALCIUM 11.2 MG/DL (8.5-10.1); CREATININE SERUM 1.05 MG/DL (0.60-1.30); POTASSIUM 4.8 MMOL/L (3.6-5.0); TOTAL PROTEIN 7.4 GM/DL (6.4-8.2)
[2017-06-16 11:31] LABS: ALANINE AMINOTRANSFERASE 57 U/L (0-55); ALBUMIN 4.4 GM/DL (3.2-4.5); ALKALINE PHOSPHATASE 93 U/L (40-136); BILIRUBIN,TOTAL 0.5 MG/DL (0.1-1.0); BUN/CREATININE RATIO 15; CALCIUM 9.8 MG/DL (8.5-10.1); CARBON DIOXIDE 26 MMOL/L (21-32); CHLORIDE 107 MMOL/L (98-107); CREATININE SERUM 0.79 MG/DL (0.60-1.30); GFR ESTIMATED > 60; GLUCOSE 132 MG/DL (70-105); POTASSIUM 4.7 MMOL/L (3.6-5.0); SODIUM 140 MMOL/L (135-145); TOTAL PROTEIN 7.4 GM/DL (6.4-8.2)
== END 2017-09-07 | disposition home or self-care (01) ==
LOC: ONC 09:00
PROVIDERS: ATTEND Internal Medicine Hematology & Oncology
DX: C50.412 Malignant neoplasm of upper-outer quadrant of left female breast (principal); M81.0 Age-related osteoporosis without current pathological fracture; Z17.0 Estrogen receptor positive status [ER+]; Z92.21 Personal history of antineoplastic chemotherapy; Z79.811 Long term (current) use of aromatase inhibitors; Z79.899 Other long term (current) drug therapy
CPT/HCPCS: 36415; 80053; 85025; 96372

== ENCOUNTER 2017-06-16 10:43 | Outpatient (RCR) | payer BC | END 2017-09-14 | disposition home or self-care (01) | LOC: ONC 10:43 | PROVIDERS: ATTEND Internal Medicine Hematology & Oncology | DX: C50.412 Malignant neoplasm of upper-outer quadrant of left female breast (principal); M81.0 Age-related osteoporosis without current pathological fracture; Z17.0 Estrogen receptor positive status [ER+]; Z92.21 Personal history of antineoplastic chemotherapy; Z79.811 Long term (current) use of aromatase inhibitors; Z79.899 Other long term (current) drug therapy ==

== ENCOUNTER → 2017-06-23 | Outpatient (CLI) | payer BC ==
--- NOTE | 2017-06-23 11:47 | Diagnostic Imaging Report ---
INDICATION: Postmenopausal osteopenia. COMPARISON: Comparison is made to prior study from 05/02/2014. FINDINGS: Bone mineral density of the lumbar spine L2-L4 is 1.061 with a T score -1.2. This compares with 1.093 and -0.9. Bone mineral density left femoral neck is 0.813 with T score -1.6. This compares with 0.849 and -1.4. Bone mineral density right femoral neck 0.802 with T score -1.7. This compares with 0.797 and -1.7. IMPRESSION: Osteopenia of the lumbar spine and bilateral femoral necks, as described. Dictated by: Dictated on workstation # [id number]
== END ==
LOC: RAD 09:48
PROVIDERS: ATTEND Internal Medicine Hematology & Oncology
DX: M85.88 Other specified disorders of bone density and structure, other site (principal); Z78.0 Asymptomatic menopausal state; Z79.811 Long term (current) use of aromatase inhibitors; Z85.3 Personal history of malignant neoplasm of breast
CPT/HCPCS: 77080

== ENCOUNTER → 2017-09-23 | Outpatient (CLI) | payer MEDICARE, OTHER ==
--- NOTE | 2017-09-23 08:41 | Diagnostic Imaging Report ---
PROCEDURE: CT sinuses without contrast TECHNIQUE: Multiple contiguous axial images were obtained through the sinuses without the use of intravenous contrast. Coronal and sagittal reformations were then performed. INDICATION: Chronic sinus infections. FINDINGS: The frontal sinus is clear. Ethmoid air cells and sphenoid sinus are clear. Bilateral maxillary sinuses are clear. No mucosal thickening or air-fluid levels are seen. The ostiomeatal complexes are patent bilaterally. Very slight nasal septal deviation to the right is noted. The mastoids are well aerated. IMPRESSION: No evidence of sinusitis. Dictated by: Dictated on workstation # [id number]
== END ==
LOC: RAD 08:09
PROVIDERS: ATTEND Otolaryngology Otolaryngology/Facial Plastic Surgery
DX: J32.4 Chronic pansinusitis (principal)
CPT/HCPCS: 70486

== ENCOUNTER 2017-11-24 10:43 | Outpatient (CLI) | payer MEDICARE, OTHER ==
[~2017-11-24] VITALS: Ht 177.8 cm; Wt 91.8 kg
[~2017-11-24 10:43] MED LIST changes: +METF-397 PO; -METF500T5 PO
[2017-11-24] MEDS ORDERED: ASPI-586 PO (11:08)
[2017-11-24] MEDS ORDERED: GLIP-173 PO (11:08)
[2017-11-24] MEDS ORDERED: ROSU20TA31 PO (11:08)
[2017-11-24] MEDS ORDERED: METF-397 PO (11:08)
[2017-11-24] MEDS ORDERED: LOSA50TA7 PO (11:08)
[2017-11-24] MEDS ORDERED: VITA400C60 PO (11:08)
[2017-11-24] MEDS ORDERED: ALEN70TA47 PO (11:08)
[2017-11-24] MEDS ORDERED: CHOL20002 PO (11:08)
[2017-11-24] MEDS ORDERED: OXYB5TAB9 PO (11:08)
== END 2017-11-24 12:34 | disposition home or self-care (01) ==
LOC: PREOP 10:43
PROVIDERS: ATTEND Surgery
DX: Z01.818 Encounter for other preprocedural examination (principal)

== ENCOUNTER 2017-11-25 10:53 | Day surgery (SDC) | payer MEDICARE, OTHER ==
[~2017-11-25] VITALS: Ht 177.8 cm; Wt 91.8 kg
[~2017-11-25 10:53] MED LIST changes: +ALEN70TA47 PO; +ASPI-586 PO; +CHOL20002 PO; +GLIP-173 PO; +LOSA50TA7 PO; +OXYB5TAB9 PO; +ROSU20TA31 PO; +VITA400C60 PO
[2017-11-25 10:55] VITALS: BP 127/69
[2017-11-25] MEDS ORDERED: NS IV 500 ML 500 ML ONE ×3 (11:00→12:11)
--- OUTSIDE RECORDS SUMMARY | 2017-11-25 11:00 | XMS REPORT | Clinical Summary ---
Author Author [facility] Organization [facility] Address Unknown Phone Unavailable Care Team Providers Care Cosmetic Consultant Name Role Phone Juan Guillermo MD Unavailable Guicho Rhoades MD PCP Zayda Morton RN Unavailable Unavailable Deepika Mederos RN Unavailable Unavailable Source Comments Some departments are not documenting in the electronic medical record. If you do not see the information that you expected, contact Release of Information in the Health Information Management department at [phone] for further assistance in locating additional records.[facility] Allergies No Known Allergies Current Medications Prescription Sig. [...] Never Used Tobacco Cessation: Counseling Given: Yes Alcohol Use Drinks/Week oz/Week Comments Yes 4 Cans of 2.4 beer Sex Assigned at Date Recorded Not on file Last Filed Vital Signs Vital Sign Reading Time Taken Blood Pressure 145/88 01/18/2013 10:04 AM [employer] Pulse 78 01/18/2013 10:04 AM [employer] Temperature 36.4 C (97.6 F) 01/18/2013 10:04 AM [employer] Respiratory Rate 18 01/18/2013 10:04 AM [employer] Oxygen Saturation 94% 12/20/2012 6:17 PM CDT Inhaled Oxygen - - Concentration Weight 88.5 kg (195 lb) 01/04/2013 10:06 AM CDT Height 177.8 cm (5' 10") 01/04/2013 10:06 AM CDT Body Mass Index 27.98 01/04/2013 10:06 AM CDT Plan of Treatment Health Maintenance Due Date Last Done Comments HEPATITIS C SCREENING 1952 PHYSICAL (COMPREHENSIVE) 08/30/1959 EXAM PERTUSSIS VACCINE 08/30/1963 HIV SCREENING 08/30/1967 TETANUS VACCINE 1969 BREAST CANCER SCREENING 1992 COLORECTAL CANCER 2002 SCREENING SHINGLES RECOMBINANT 2002 VACCINE (1 of 2) OSTEOPOROSIS SCREENING 2017 PNEUMONIA (PCV13/PPSV23) 2017 VACCINES (1 of 2 - PCV13) INFLUENZA VACCINE 12/05/2017 Results Not on filefrom Last 3 Months
--- OUTSIDE RECORDS SUMMARY | 2017-11-25 11:04 | XMS REPORT | Continuity of Care Document ---
Author Author [facility] Organization [facility] Address Unknown Phone Unavailable Allergies Active Description Code Type Severity Reaction Onset Reported/Identified Relationship to Patient Clinical Status Yes No Known Drug Allergies [id number] Drug Allergy Unknown N/A 09/11/2009 Medications There is no data. Problems Date Dx Coded Attending Type Code Diagnosis Diagnosed By 08/28/2010 Ot 562.10 DIVERTICULOSIS COLON (W/O MENT OF HEMORR 10/22/2010 Ot 174.9 MALIGN NEOPL BREAST NOS 11/12/2010 Ot 174.9 MALIGN NEOPL BREAST NOS 01/06/2011 Ot 041.10 BACTERIAL INFEC DUE TO UNSPEC STAPHYLOCO 01/06/2011 Ot 174.9 MALIGN NEOPL BREAST NOS 01/06/2011 Ot 272.4 HYPERLIPIDEMIA NEC/NOS 01/06/2011 Ot 451.84 PHLEBITIS THROMBOPHLEBITIS UPPER EXTRE 01/06/2011 Ot 536.8 STOMACH FUNCTION DIS NEC 01/06/2011 Ot 611.0 INFLAM DISEASE OF BREAST 01/06/2011 Ot 998.51 INFECTED POSTOP SEROMA 03/11/2011 Ot 174.9 MALIGN NEOPL BREAST NOS 06/15/2011 Ot 174.9 MALIGN NEOPL BREAST NOS 06/15/2011 Ot V58.0 ENCOUNTER FOR RADIOTHERAPY 06/15/2011 Ot V87.41 PERSONAL HISTORY OF ANTINEOPLASTIC CHEMO 09/14/2011 Ot 174.9 MALIGN NEOPL BREAST NOS 09/14/2011 Ot V87.41 PERSONAL HISTORY OF ANTINEOPLASTIC CHEMO 02/29/2012 Ot 174.9 MALIGN NEOPL BREAST NOS 02/29/2012 Ot 780.79 OTH MALAISE FATIGUE 02/29/2012 Ot V87.41 PERSONAL HISTORY OF ANTINEOPLASTIC CHEMO 08/16/2012 Ot 174.9 MALIGN NEOPL BREAST NOS 08/16/2012 Ot V87.41 PERSONAL HISTORY OF ANTINEOPLASTIC CHEMO 03/06/2013 OMAR LOPEZ Ot 174.9 MALIGN NEOPL BREAST NOS 03/06/2013 OMAR LOPEZ Ot 733.90 BONE CARTILAGE DIS NOS 03/06/2013 OMAR LOPEZ Ot V58.69 OTH MED,LT,CURRENT USE 03/06/2013 OMAR LOPEZ N Ot V86.0 ESTROGEN RECEPTOR POSITIVE STATUS [ER+] 03/06/2013 OMAR LOPEZ N Ot V87.41 PERSONAL HISTORY OF ANTINEOPLASTIC CHEMO 04/26/2013 NOHEMI FUENTES, NANCY Pina Ot 327.23 OBSTRUCTIVE SLEEP APNEA (ADULT) (PEDIATR 09/09/2013 OMAR LOPEZ N Ot 174.9 MALIGN NEOPL BREAST NOS 09/09/2013 OMAR LOPEZ N Ot 733.90 BONE CARTILAGE DIS NOS 09/09/2013 OMAR LOPEZ N Ot V58.69 OTH MED,LT,CURRENT USE 09/09/2013 OMAR LOPEZ N Ot V86.0 ESTROGEN RECEPTOR POSITIVE STATUS [ER+] 09/09/2013 OMAR LOPEZ N Ot V87.41 PERSONAL HISTORY OF ANTINEOPLASTIC CHEMO 03/10/2014 OMAR LOPEZ David Ot 174.9 MALIGN NEOPL BREAST NOS 03/10/2014 OMAR LOPEZ N Ot 733.90 BONE CARTILAGE DIS NOS 03/10/2014 OMAR LOPEZ David Ot V58.69 OTH MED,LT,CURRENT USE 03/10/2014 OMAR LOPEZ N Ot V86.0 ESTROGEN RECEPTOR POSITIVE STATUS [ER+] 03/10/2014 OMAR LOPEZ N Ot V87.41 PERSONAL HISTORY OF ANTINEOPLASTIC CHEMO 06/03/2014 OMAR LOPEZ N Ot 174.9 06/03/2014 OMAR LOPEZ N Ot 733.90 06/03/2014 OMAR LOPEZ N Ot V58.69 06/03/2014 JOHNOMAR CASTILLO N Ot V86.0 06/03/2014 OMAR LOPEZ N Ot V87.41 06/10/2014 Ot 793.89 06/10/2014 Ot V76.12 06/10/2014 Ot 553.1 06/10/2014 Ot V72.63 06/10/2014 Ot V74.8 06/10/2014 Ot 553.1 06/10/2014 Ot V64.3 06/10/2014 Ot V76.51 06/10/2014 Ot 211.3 06/10/2014 Ot 553.1 06/10/2014 Ot 562.10 06/10/2014 Ot V76.51 06/10/2014 Ot 611.72 06/10/2014 Ot V76.12 06/10/2014 Ot 793.81 06/10/2014 Ot 610.1 06/10/2014 Ot 610.4 06/10/2014 Ot 793.81 06/10/2014 Ot 793.81 06/10/2014 Ot V72.63 06/10/2014 Ot V74.8 06/10/2014 Ot 174.9 06/10/2014 Ot V72.83 06/10/2014 Ot 174.9 06/10/2014 Ot 272.0 06/10/2014 Ot 536.8 06/10/2014 Ot V45.77 06/10/2014 Ot V58.69 06/10/2014 Ot V86.0 06/10/2014 Ot 174.9 06/10/2014 Ot 733.90 06/10/2014 Ot V49.81 06/10/2014 Ot V58.69 06/10/2014 Ot V82.81 06/10/2014 Ot 397.0 06/10/2014 Ot 424.0 06/10/2014 Ot 785.1 06/10/2014 Ot 786.09 06/10/2014 Ot 721.0 06/10/2014 Ot 174.9 06/10/2014 Ot 793.82 06/10/2014 Ot V45.77 06/10/2014 Ot 272.4 06/10/2014 JACQUES WEBB SALES EXEC Ot 174.9 06/10/2014 JACQUES WEBB SALES EXEC Ot 733.90 06/10/2014 JACQUES WEBB SALES EXEC Ot 782.62 06/10/2014 JACQUES WEBB SALES EXEC Ot V58.69 06/10/2014 JACQUES WEBB SALES EXEC Ot V86.0 06/10/2014 JACQUES WEBB SALES EXEC Ot V87.41 06/10/2014 OMAR LOPEZ Ot 174.9 06/10/2014 OMAR LOPEZ Ot V87.41 06/10/2014 JACQUES WEBB SALES EXEC Ot 174.9 06/10/2014 JACQUES WEBB SALES EXEC Ot 733.90 06/10/2014 VAMSI RANDLE DO Ot 721.3 06/10/2014 NAHED FUENTES, RENA R Ot 272.4 06/10/2014 WEBBJACQUES Galdamez S SALES EXEC Ot 174.9 06/10/2014 WEBBJACQUES S SALES EXEC Ot 733.90 06/10/2014 WEBBJACQUES S SALES EXEC Ot V58.69 06/10/2014 WEBBJACQUES Galdamez S SALES EXEC Ot V86.0 06/10/2014 WEBBJACQUES S SALES EXEC Ot V87.41 06/10/2014 WEBBJACQUES S SALES EXEC Ot 174.9 06/10/2014 WEBBJACQUES S SALES EXEC Ot 174.9 06/10/2014 WEBBJACQUES S SALES EXEC Ot 733.90 06/10/2014 WEBBJACQUES S SALES EXEC Ot V58.69 06/10/2014 WEBBJACQUES Galdamez S SALES EXEC Ot V86.0 06/10/2014 WEBBJACQUES S SALES EXEC Ot V87.41 06/10/2014 WEBBJACQUES Galdamez S SALES EXEC Ot 174.9 06/10/2014 Ot 733.00 06/10/2014 WEBBJACQUES S SALES EXEC Ot 174.9 06/10/2014 WEBBJACQUES Galdamez S SALES EXEC Ot 611.3 06/10/2014 WEBBJACQUES Galdamez S SALES EXEC Ot 174.9 06/10/2014 WEBBJACQUES Galdamez S SALES EXEC Ot 793.80 06/10/2014 JOHN, BOBAN N Ot 174.9 06/10/2014 JOHN, BOBAN N Ot 733.90 06/10/2014 JOHN, BOBAN N Ot V58.69 06/10/2014 JOHN, BOBAN N Ot V86.0 06/10/2014 JOHN, BOBAN N Ot V87.41 06/10/2014 JOHN, BOBAN N Ot 174.9 06/10/2014 JOHN, BOBAN N Ot 733.90 06/10/2014 JOHN, BOBAN N Ot V58.69 06/10/2014 JOHN, BOBAN N Ot V86.0 06/10/2014 JOHN, BOBAN N Ot V87.41 06/10/2014 JOHN, BOBAN N Ot 174.9 06/10/2014 JOHN, BOBAN N Ot 733.90 06/10/2014 OMAR LOPEZ Ot V58.69 06/10/2014 JOHNOMAR CASTILLO N Ot V86.0 06/10/2014 JOHNOMAR CASTILLO N Ot V87.41 06/11/2014 JOHNOMAR CASTILLO N Ot 174.9 06/11/2014 JOHNOMAR CASTILLO N Ot 733.90 06/11/2014 JOHNOMAR CASTILLO Ot V58.69 06/11/2014 JOHNOMAR CASTILLO Ot V86.0 06/11/2014 JOHNOMAR CASTILLO Ot V87.41 06/19/2014 JOHNOMAR CASTILLO Ot 174.9 06/19/2014 JOHNOMAR CASTILLO Ot 733.00 06/19/2014 JOHNOMAR CASTILLO Ot V58.69 06/19/2014 OMAR LOPEZ Ot V86.0 06/19/2014 OMAR LOPEZ Ot V87.41 06/25/2014 Ot 793.89 06/25/2014 Ot V76.12 06/25/2014 Ot 553.1 06/25/2014 Ot V72.63 06/25/2014 Ot V74.8 06/25/2014 Ot 553.1 06/25/2014 Ot V64.3 06/25/2014 Ot V76.51 06/25/2014 Ot 211.3 06/25/2014 Ot 553.1 06/25/2014 Ot 562.10 06/25/2014 Ot V76.51 06/25/2014 Ot 611.72 06/25/2014 Ot V76.12 06/25/2014 Ot 793.81 06/25/2014 Ot 610.1 06/25/2014 Ot 610.4 06/25/2014 Ot 793.81 06/25/2014 Ot 793.81 06/25/2014 Ot V72.63 06/25/2014 Ot V74.8 06/25/2014 Ot 174.9 06/25/2014 Ot V72.83 06/25/2014 Ot 174.9 06/25/2014 Ot 272.0 06/25/2014 Ot 536.8 06/25/2014 Ot V45.77 06/25/2014 Ot V58.69 06/25/2014 Ot V86.0 06/25/2014 Ot 174.9 06/25/2014 Ot 733.90 06/25/2014 Ot V49.81 06/25/2014 Ot V58.69 06/25/2014 Ot V82.81 06/25/2014 Ot 397.0 06/25/2014 Ot 424.0 06/25/2014 Ot 785.1 06/25/2014 Ot 786.09 06/25/2014 Ot 721.0 06/25/2014 Ot 174.9 06/25/2014 Ot 793.82 06/25/2014 Ot V45.77 06/25/2014 Ot 272.4 06/25/2014 JACQUES WEBB SALES EXEC Ot 174.9 06/25/2014 JACQUES WEBB S SALES EXEC Ot 733.90 06/25/2014 JACQUES WEBB S SALES EXEC Ot 782.62 06/25/2014 JACQUES WEBB S SALES EXEC Ot V58.69 06/25/2014 JACQUES WEBB S SALES EXEC Ot V86.0 06/25/2014 JACQUES WEBB S SALES EXEC Ot V87.41 06/25/2014 OMAR LOPEZ N Ot 174.9 06/25/2014 OMAR LOPEZ N Ot V87.41 06/25/2014 JACQUES WEBB S SALES EXEC Ot 174.9 06/25/2014 JACQUES WEBB S SALES EXEC Ot 733.90 06/25/2014 VAMSI RANDLE DO F Ot 721.3 06/25/2014 NAHED FUENTES, RENA R Ot 272.4 06/25/2014 JACQUES WEBB S SALES EXEC Ot 174.9 06/25/2014 JACQUSE WEBB S SALES EXEC Ot 733.90 06/25/2014 JACQUES WEBB S SALES EXEC Ot V58.69 06/25/2014 JACQUES WEBB S SALES EXEC Ot V86.0 06/25/2014 JACQUES WEBB S SALES EXEC Ot V87.41 06/25/2014 JACQUES WEBB S SALES EXEC Ot 174.9 06/25/2014 JACQUES WEBB S SALES EXEC Ot 174.9 06/25/2014 JACQUES WEBB S SALES EXEC Ot 733.90 06/25/2014 JACQUES WEBB S SALES EXEC Ot V58.69 06/25/2014 JACQUES WEBB S SALES EXEC Ot V86.0 06/25/2014 JACQUES WEBB SALES EXEC Ot V87.41 06/25/2014 JACQUES WEBB SALES EXEC Ot 174.9 06/25/2014 Ot 733.00 06/25/2014 JACQUES WEBB SALES EXEC Ot 174.9 06/25/2014 JACQUES WEBB SALES EXEC Ot 611.3 06/25/2014 JACQUES WEBB SALES EXEC Ot 174.9 06/25/2014 JACQUES WEBB SALES EXEC Ot 793.80 06/25/2014 OMAR LOPEZ N Ot 174.9 06/25/2014 OMAR LOPEZ N Ot 733.00 06/25/2014 OMAR LOPEZ N Ot V58.69 06/25/2014 OMAR LOPEZ N Ot V86.0 06/25/2014 OMAR LOPEZ N Ot V87.41 06/26/2014 Ot 793.89 06/26/2014 Ot V76.12 06/26/2014 Ot 553.1 06/26/2014 Ot V72.63 06/26/2014 Ot V74.8 06/26/2014 Ot 553.1 06/26/2014 Ot V64.3 06/26/2014 Ot V76.51 06/26/2014 Ot 211.3 06/26/2014 Ot 553.1 06/26/2014 Ot 562.10 06/26/2014 Ot V76.51 06/26/2014 Ot 611.72 06/26/2014 Ot V76.12 06/26/2014 Ot 793.81 06/26/2014 Ot 610.1 06/26/2014 Ot 610.4 06/26/2014 Ot 793.81 06/26/2014 Ot 793.81 06/26/2014 Ot V72.63 06/26/2014 Ot V74.8 06/26/2014 Ot 174.9 06/26/2014 Ot V72.83 06/26/2014 Ot 174.9 06/26/2014 Ot 272.0 06/26/2014 Ot 536.8 06/26/2014 Ot V45.77 06/26/2014 Ot V58.69 06/26/2014 Ot V86.0 06/26/2014 Ot 174.9 06/26/2014 Ot 733.90 06/26/2014 Ot V49.81 06/26/2014 Ot V58.69 06/26/2014 Ot V82.81 06/26/2014 Ot 397.0 06/26/2014 Ot 424.0 06/26/2014 Ot 785.1 06/26/2014 Ot 786.09 06/26/2014 Ot 721.0 06/26/2014 Ot 174.9 06/26/2014 Ot 793.82 06/26/2014 Ot V45.77 06/26/2014 Ot 272.4 06/26/2014 JON JACQUES S SALES EXEC Ot 174.9 06/26/2014 WEBB, JACQUES S SALES EXEC Ot 733.90 06/26/2014 JON JACQUES S SALES EXEC Ot 782.62 06/26/2014 JON JACQUES S SALES EXEC Ot V58.69 06/26/2014 JACQUES WEBB S SALES EXEC Ot V86.0 06/26/2014 JACQUES WEBB S SALES EXEC Ot V87.41 06/26/2014 OMAR LOPEZ N Ot 174.9 06/26/2014 JOHNOMAR CASTILLO Ot V87.41 06/26/2014 JON KRISSLUZ S SALES EXEC Ot 174.9 06/26/2014 JACQUES WEBB S SALES EXEC Ot 733.90 06/26/2014 VAMSI RANDLE DO Ot 721.3 06/26/2014 NAHED FUENTES, RENA R Ot 272.4 06/26/2014 JACQUES WEBB S SALES EXEC Ot 174.9 06/26/2014 WEBBJACQUES Galdamez S SALES EXEC Ot 733.90 06/26/2014 WEBB, KRISSLUZ S SALES EXEC Ot V58.69 06/26/2014 JACQUES WEBB S SALES EXEC Ot V86.0 06/26/2014 WEBBJACQUES Galdamez S SALES EXEC Ot V87.41 06/26/2014 JACQUES WEBB S SALES EXEC Ot 174.9 06/26/2014 WEBBJACQUES Galdamez S SALES EXEC Ot 174.9 06/26/2014 JACQUES WEBB S SALES EXEC Ot 733.90 06/26/2014 JACQUES WEBB S SALES EXEC Ot V58.69 06/26/2014 JACQUES WEBB S SALES EXEC Ot V86.0 06/26/2014 JACQUES WEBB SALES EXEC Ot V87.41 06/26/2014 JACQUES WEBB SALES EXEC Ot 174.9 06/26/2014 Ot 733.00 06/26/2014 JACQUES WEBB SALES EXEC Ot 174.9 06/26/2014 JACQUES WEBB SALES EXEC Ot 611.3 06/26/2014 JACQUES WEBB SALES EXEC Ot 174.9 06/26/2014 JACQUES WEBB SALES EXEC Ot 793.80 06/26/2014 OMAR LOPEZ N Ot 174.9 06/26/2014 OMAR LOPEZ N Ot 733.00 06/26/2014 OMAR LOPEZ N Ot V58.69 06/26/2014 OMAR LOPEZ N Ot V86.0 06/26/2014 OMAR LOPEZ N Ot V87.41 07/01/2014 ERICA FUENTES, SRUTHI Dorsey Ot 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 07/01/2014 ERICA FUENTES, SRUTHI Dorsey Ot V12.72 PERSONAL HISTORY OF COLONIC POLYPS 08/03/2014 OMAR LOPEZ N Ot 174.9 08/03/2014 OMAR LOPEZ N Ot 733.00 08/03/2014 OMAR LOPEZ N Ot V58.69 08/03/2014 OMAR LOPEZ N Ot V86.0 08/03/2014 OMAR LOPEZ N Ot V87.41 08/07/2014 Ot 733.00 09/08/2014 OMAR LOPEZ N Ot 174.9 MALIGN NEOPL BREAST NOS 09/08/2014 OMAR LOPEZ N Ot 733.00 OSTEOPOROSIS NOS 09/08/2014 OMAR LOPEZ N Ot V58.69 OTH MED,LT,CURRENT USE 09/08/2014 OMAR LOPEZ N Ot V86.0 ESTROGEN RECEPTOR POSITIVE STATUS [ER+] 09/08/2014 OMAR LOPEZ N Ot V87.41 PERSONAL HISTORY OF ANTINEOPLASTIC CHEMO 11/27/2014 Ot V76.12 11/27/2014 Ot 553.1 11/27/2014 Ot V72.63 11/27/2014 Ot V74.8 11/27/2014 Ot 553.1 11/27/2014 Ot V64.3 11/27/2014 Ot V76.51 11/27/2014 Ot 211.3 11/27/2014 Ot 553.1 11/27/2014 Ot 562.10 11/27/2014 Ot V76.51 11/27/2014 Ot 611.72 11/27/2014 Ot V76.12 11/27/2014 Ot 793.81 11/27/2014 Ot 610.1 11/27/2014 Ot 610.4 11/27/2014 Ot 793.81 11/27/2014 Ot 793.81 11/27/2014 Ot V72.63 11/27/2014 Ot V74.8 11/27/2014 Ot 174.9 11/27/2014 Ot V72.83 11/27/2014 Ot 174.9 11/27/2014 Ot 272.0 11/27/2014 Ot 536.8 11/27/2014 Ot V45.77 11/27/2014 Ot V58.69 11/27/2014 Ot V86.0 11/27/2014 Ot 174.9 11/27/2014 Ot 733.90 11/27/2014 Ot V49.81 11/27/2014 Ot V58.69 11/27/2014 Ot V82.81 11/27/2014 Ot 397.0 11/27/2014 Ot 424.0 11/27/2014 Ot 785.1 11/27/2014 Ot 786.09 11/27/2014 Ot 721.0 11/27/2014 Ot 174.9 11/27/2014 Ot 793.82 11/27/2014 Ot V45.77 11/27/2014 Ot 272.4 11/27/2014 JACQUES WEBB SALES EXEC Ot 174.9 11/27/2014 JACQUES WEBB SALES EXEC Ot 733.90 11/27/2014 JACQUES WEBB SALES EXEC Ot 782.62 11/27/2014 JACQUES WEBBP Ot V58.69 11/27/2014 JACUQES WEBBP Ot V86.0 11/27/2014 JACQUES WEBB SALES EXEC Ot V87.41 11/27/2014 OMAR LOPEZ Ot 174.9 11/27/2014 OMAR LOPEZ Ot V87.41 11/27/2014 JACQUES WEBB SALES EXEC Ot 174.9 11/27/2014 KRISS WEBBAH S SALES EXEC Ot 733.90 11/27/2014 JER DO, VAMSI F Ot 721.3 11/27/2014 NAHED FUENTES, RENA R Ot 272.4 11/27/2014 WEBBJACQUES Galdamez S SALES EXEC Ot 174.9 11/27/2014 WEBBJACQUES Galdamez S SALES EXEC Ot 733.90 11/27/2014 WEBBJACQUES S SALES EXEC Ot V58.69 11/27/2014 WEBBJACQUES Galdamez S SALES EXEC Ot V86.0 11/27/2014 WEBBJACQUES S SALES EXEC Ot V87.41 11/27/2014 WEBBJACQUES S SALES EXEC Ot 174.9 11/27/2014 WEBBJACQUES S SALES EXEC Ot 174.9 11/27/2014 WEBBJACQUES Galdamez S SALES EXEC Ot 733.90 11/27/2014 WEBBJACQUES Galdamez S SALES EXEC Ot V58.69 11/27/2014 WEBBJACQUES Galdamez S SALES EXEC Ot V86.0 11/27/2014 WEBBJACQUES Galdamez S SALES EXEC Ot V87.41 11/27/2014 WEBBJACQUES Galdamez S SALES EXEC Ot 174.9 11/27/2014 Ot 733.00 11/27/2014 WEBBJACQUES Galdamez S SALES EXEC Ot 174.9 11/27/2014 JACQUES WEBB S SALES EXEC Ot 611.3 11/27/2014 WEBBJACQUES Galdamez S SALES EXEC Ot 174.9 11/27/2014 WEBBJACQUES Galdamez S SALES EXEC Ot 793.80 11/27/2014 ERICA FUENTES, SRUTHI Dorsey Ot V72.84 11/27/2014 JOHN, BOBAN N Ot 174.9 11/27/2014 JOHN, BOBAN N Ot 733.00 11/27/2014 JOHN, BOBAN N Ot V58.69 11/27/2014 JOHNOMAR CASTILLO N Ot V86.0 11/27/2014 JOHN BOBAN N Ot V87.41 11/27/2014 WEBBJACQUES Galdamez S SALES EXEC Ot 174.9 11/27/2014 WEBBJACQUES S SALES EXEC Ot 250.00 11/27/2014 WEBB JACQUES S SALES EXEC Ot 733.00 11/27/2014 WEBB, HILAH S SALES EXEC Ot V58.69 11/27/2014 JON JACQUES Galdamez [facility] Ot V86.0 11/27/2014 JON JACQUES Galdamez [facility] Ot V87.41 12/02/2014 Ot V76.12 12/02/2014 Ot 553.1 12/02/2014 Ot V72.63 12/02/2014 Ot V74.8 12/02/2014 Ot 553.1 12/02/2014 Ot V64.3 12/02/2014 Ot V76.51 12/02/2014 Ot 211.3 12/02/2014 Ot 553.1 12/02/2014 Ot 562.10 12/02/2014 Ot V76.51 12/02/2014 Ot 611.72 12/02/2014 Ot V76.12 12/02/2014 Ot 793.81 12/02/2014 Ot 610.1 12/02/2014 Ot 610.4 12/02/2014 Ot 793.81 12/02/2014 Ot 793.81 12/02/2014 Ot V72.63 12/02/2014 Ot V74.8 12/02/2014 Ot 174.9 12/02/2014 Ot V72.83 12/02/2014 Ot 174.9 12/02/2014 Ot 272.0 12/02/2014 Ot 536.8 12/02/2014 Ot V45.77 12/02/2014 Ot V58.69 12/02/2014 Ot V86.0 12/02/2014 Ot 174.9 12/02/2014 Ot 733.90 12/02/2014 Ot V49.81 12/02/2014 Ot V58.69 12/02/2014 Ot V82.81 12/02/2014 Ot 397.0 12/02/2014 Ot 424.0 12/02/2014 Ot 785.1 12/02/2014 Ot 786.09 12/02/2014 Ot 721.0 12/02/2014 Ot 174.9 12/02/2014 Ot 793.82 12/02/2014 Ot V45.77 12/02/2014 Ot 272.4 12/02/2014 JACQUES WEBB Denice SALES EXEC Ot 174.9 12/02/2014 JACQUES WEBB [facility] Ot 733.90 12/02/2014 JACQUES WEBB Denice SALES EXEC Ot 782.62 12/02/2014 JACQUES WEBB S SALES EXEC Ot V58.69 12/02/2014 JACQUES WEBB S SALES EXEC Ot V86.0 12/02/2014 WEBBJACQUES Galdamez S SALES EXEC Ot V87.41 12/02/2014 OMAR LOPEZ N Ot 174.9 12/02/2014 OMAR LOPEZ N Ot V87.41 12/02/2014 WEBBJACQUES Galdamez S SALES EXEC Ot 174.9 12/02/2014 JACQUES WEBB S SALES EXEC Ot 733.90 12/02/2014 JER PEREZ, VAMSI F Ot 721.3 12/02/2014 NAHED FUENTES, RENA R Ot 272.4 12/02/2014 JACQUES WEBB S SALES EXEC Ot 174.9 12/02/2014 WEBBJACQUES Galdamez S SALES EXEC Ot 733.90 12/02/2014 JACQUES WEBB S SALES EXEC Ot V58.69 12/02/2014 JACQUES WEBB S SALES EXEC Ot V86.0 12/02/2014 JACQUES WEBB S SALES EXEC Ot V87.41 12/02/2014 JAQCUES WEBB S SALES EXEC Ot 174.9 12/02/2014 WEBBJACQUES Galdamez S SALES EXEC Ot 174.9 12/02/2014 JACQUES WEBB S SALES EXEC Ot 733.90 12/02/2014 JACQUES WEBB S SALES EXEC Ot V58.69 12/02/2014 JACQUES WEBB S SALES EXEC Ot V86.0 12/02/2014 WEBBJACQUES Galdamez S SALES EXEC Ot V87.41 12/02/2014 WEBBJACQUES Galdamez S SALES EXEC Ot 174.9 12/02/2014 Ot 733.00 12/02/2014 WEBBJACQUES Galdamez S SALES EXEC Ot 174.9 12/02/2014 WEBBJACQUES Galdamez S SALES EXEC Ot 611.3 12/02/2014 WEBBJACQUES S SALES EXEC Ot 174.9 12/02/2014 WEBBJACQUES S SALES EXEC Ot 793.80 12/02/2014 ERICA FUENTES, SRUTHI Dorsey Ot V72.84 12/02/2014 JOHNSG CASTILLOKENIA N Ot 174.9 12/02/2014 OMAR LOPEZ N Ot 733.00 12/02/2014 OMAR LOPEZ N Ot V58.69 12/02/2014 OMAR LOPEZ N Ot V86.0 12/02/2014 OMAR LOPEZ Ot V87.41 12/02/2014 JACQUES WEBB SALES EXEC Ot 174.9 12/02/2014 JACQUES WEBB SALES EXEC Ot 250.00 12/02/2014 JACQUES WEBB SALES EXEC Ot 733.00 12/02/2014 JACQUES WEBB SALES EXEC Ot V58.69 12/02/2014 JACQUES WEBB SALES EXEC Ot V86.0 12/02/2014 JACQUES WEBB SALES EXEC Ot V87.41 12/02/2014 JACQUES WEBB SALES EXEC Ot 780.4 12/02/2014 JACQUES WEBBP Ot 784.0 12/02/2014 Ot V76.12 12/02/2014 Ot 553.1 12/02/2014 Ot V72.63 12/02/2014 Ot V74.8 12/02/2014 Ot 553.1 12/02/2014 Ot V64.3 12/02/2014 Ot V76.51 12/02/2014 Ot 211.3 12/02/2014 Ot 553.1 12/02/2014 Ot 562.10 12/02/2014 Ot V76.51 12/02/2014 Ot 611.72 12/02/2014 Ot V76.12 12/02/2014 Ot 793.81 12/02/2014 Ot 610.1 12/02/2014 Ot 610.4 12/02/2014 Ot 793.81 12/02/2014 Ot 793.81 12/02/2014 Ot V72.63 12/02/2014 Ot V74.8 12/02/2014 Ot 174.9 12/02/2014 Ot V72.83 12/02/2014 Ot 174.9 12/02/2014 Ot 272.0 12/02/2014 Ot 536.8 12/02/2014 Ot V45.77 12/02/2014 Ot V58.69 12/02/2014 Ot V86.0 12/02/2014 Ot 174.9 12/02/2014 Ot 733.90 12/02/2014 Ot V49.81 12/02/2014 Ot V58.69 12/02/2014 Ot V82.81 12/02/2014 Ot 397.0 12/02/2014 Ot 424.0 12/02/2014 Ot 785.1 12/02/2014 Ot 786.09 12/02/2014 Ot 721.0 12/02/2014 Ot 174.9 12/02/2014 Ot 793.82 12/02/2014 Ot V45.77 12/02/2014 Ot 272.4 12/02/2014 WEBBJACQUES Galdamez S SALES EXEC Ot 174.9 12/02/2014 WEBBJACQUSE Galdamez S SALES EXEC Ot 733.90 12/02/2014 WEBBJACQUES S SALES EXEC Ot 782.62 12/02/2014 JON JACQUES S SALES EXEC Ot V58.69 12/02/2014 JON JACQUES S SALES EXEC Ot V86.0 12/02/2014 WEBB, JACQUES S SALES EXEC Ot V87.41 12/02/2014 OMAR LOPEZ N Ot 174.9 12/02/2014 OMAR LOPEZ Ot V87.41 12/02/2014 WEBB JACQUES S SALES EXEC Ot 174.9 12/02/2014 WEBB, JACQUES S SALES EXEC Ot 733.90 12/02/2014 JER PEREZ, VAMSI F Ot 721.3 12/02/2014 NAHED FUENTES, RENA R Ot 272.4 12/02/2014 WEBBJACQUES S SALES EXEC Ot 174.9 12/02/2014 WEBB, JACQUES S SALES EXEC Ot 733.90 12/02/2014 WEBB, JACQUES S SALES EXEC Ot V58.69 12/02/2014 WEBB, JACQUES S SALES EXEC Ot V86.0 12/02/2014 WEBB JACQUES S SALES EXEC Ot V87.41 12/02/2014 WEBB JACQUES S SALES EXEC Ot 174.9 12/02/2014 WEBB KRISSAH S SALES EXEC Ot 174.9 12/02/2014 WEBB, JACQUES S SALES EXEC Ot 733.90 12/02/2014 WEBB JACQUES S SALES EXEC Ot V58.69 12/02/2014 WEBB JACQUES S SALES EXEC Ot V86.0 12/02/2014 WEBB JACQUES S SALES EXEC Ot V87.41 12/02/2014 JACQUES WEBB SALES EXEC Ot 174.9 12/02/2014 Ot 733.00 12/02/2014 JACQUES WEBB S SALES EXEC Ot 174.9 12/02/2014 JACQUES WEBB S SALES EXEC Ot 611.3 12/02/2014 JACQUES WEBB S SALES EXEC Ot 174.9 12/02/2014 JACQUES WEBB S SALES EXEC Ot 793.80 12/02/2014 ERICA FUENTES, SRUTHI M Ot V72.84 12/02/2014 OMAR LOPEZ N Ot 174.9 12/02/2014 OMAR LOPEZ N Ot 733.00 12/02/2014 OMAR LOPEZ N Ot V58.69 12/02/2014 OMAR LOPEZ N Ot V86.0 12/02/2014 OMAR LOPEZ N Ot V87.41 12/02/2014 JACQUES WEBB SALES EXEC Ot 174.9 12/02/2014 JACQUES WEBB S SALES EXEC Ot 250.00 12/02/2014 JACQUES WEBB S SALES EXEC Ot 733.00 12/02/2014 WEBBJACQUES Galdamez S SALES EXEC Ot V58.69 12/02/2014 WEBBJACQUES Galdamez S SALES EXEC Ot V86.0 12/02/2014 WEBBJACQUES Galdamez S SALES EXEC Ot V87.41 12/02/2014 JACQUES WEBB S SALES EXEC Ot 780.4 12/02/2014 JACQUES WEBB S SALES EXEC Ot 784.0 12/06/2014 WEBBJACQUES Galdamez S SALES EXEC Ot 174.9 12/06/2014 WEBBJACQUES Galdamez S SALES EXEC Ot 250.00 12/06/2014 WEBBJACQUES Galdamez S SALES EXEC Ot 733.00 12/06/2014 WEBBJACQUES Galdamez S SALES EXEC Ot V58.69 12/06/2014 WEBBJACQUES Galdamez S SALES EXEC Ot V86.0 12/06/2014 WEBBJACQUES S SALES EXEC Ot V87.41 12/06/2014 WEBBJACQUES S SALES EXEC Ot 780.4 12/06/2014 WEBBJACQUES S SALES EXEC Ot 784.0 12/13/2014 WEBBJACQUES S SALES EXEC Ot 780.4 12/13/2014 WEBBJACQUES S SALES EXEC Ot 784.0 12/23/2014 JACQUES WEBB SALES EXEC Ot 174.9 03/19/2015 JACQUES WEBB SALES EXEC Ot R92.1 05/12/2015 JOHNOMAR CASTILLO N Ot 174.9 05/12/2015 JOHNOMAR CASTILLO N Ot 733.00 05/12/2015 JOHNOMAR CASTILLO N Ot V58.69 05/12/2015 JOHNOMAR CASTILLO N Ot V86.0 05/12/2015 JOHNOMAR CASTILLO N Ot V87.41 05/21/2015 JOHNOMAR CASTILLO N Ot 174.9 05/21/2015 JOHN, OMAR N Ot 733.00 05/21/2015 JOHN, OMAR N Ot V58.69 05/21/2015 JOHNOMAR CASTILLO N Ot V86.0 05/21/2015 JOHNOMAR CASTILLO N Ot V87.41 06/18/2015 JOHNOMAR CASTILLO N Ot C50.412 06/18/2015 OMAR LOPEZ N Ot M81.0 06/18/2015 OMAR LOPEZ N Ot Z17.0 06/18/2015 OMAR LOPEZ N Ot Z79.811 06/18/2015 OMAR LOPEZ N Ot Z92.21 07/25/2015 OMAR LOPEZ David Ot C50.412 MALIG NEOPLASM OF UPPER-OUTER QUADRANT O 07/25/2015 OMAR LOPEZ N Ot M81.0 AGE-RELATED OSTEOPOROSIS W/O CURRENT PAT 07/25/2015 OMAR LOPEZ N Ot Z17.0 ESTROGEN RECEPTOR POSITIVE STATUS [ER+] 07/25/2015 OMAR LOPEZ N Ot Z79.811 HUMAN RESOURCE INTERNSHIP (CURRENT) USE OF AROMATASE INH 07/25/2015 OMAR LOPEZ N Ot Z92.21 PERSONAL HISTORY OF ANTINEOPLASTIC CHEMO 08/17/2015 OMAR LOPEZ N Ot C50.412 MALIG NEOPLASM OF UPPER-OUTER QUADRANT O 08/17/2015 OMAR LOPEZ N Ot M81.0 AGE-RELATED OSTEOPOROSIS W/O CURRENT PAT 08/17/2015 OMAR LOPEZ N Ot Z17.0 ESTROGEN RECEPTOR POSITIVE STATUS [ER+] 08/17/2015 OMAR OLPEZ N Ot Z79.811 SHELTER (CURRENT) USE OF AROMATASE INH 08/17/2015 OMAR LOPEZ Ot Z92.21 PERSONAL HISTORY OF ANTINEOPLASTIC CHEMO 11/11/2015 OMAR LOPEZ Ot C50.412 MALIG NEOPLASM OF UPPER-OUTER QUADRANT O 11/11/2015 OMAR LOPEZ Ot M81.0 AGE-RELATED OSTEOPOROSIS W/O CURRENT PAT 11/11/2015 OMAR LOPEZ Ot Z17.0 ESTROGEN RECEPTOR POSITIVE STATUS [ER+] 11/11/2015 OMAR LOPEZ Ot Z79.811 SHELTER (CURRENT) USE OF AROMATASE INH 11/11/2015 OMAR LOPEZ Ot Z92.21 PERSONAL HISTORY OF ANTINEOPLASTIC CHEMO 12/05/2015 Ot 611.72 LUMP OR MASS IN BREAST 12/05/2015 Ot V76.12 OT SCREEN MAMMO-MALIGN NEOPLASM OF RUFINA 12/05/2015 Ot 793.81 MAMMOGRAPHIC MICROCLACIFICATION 12/05/2015 Ot 610.1 DIFFUS CYSTIC MASTOPATHY 12/05/2015 Ot 610.4 MAMMARY DUCT ECTASIA 12/05/2015 Ot 793.81 MAMMOGRAPHIC MICROCLACIFICATION 12/05/2015 Ot 793.81 MAMMOGRAPHIC MICROCLACIFICATION 12/05/2015 Ot V72.63 PRE- PROCEDURAL LABORATORY EXAMINATION 12/05/2015 Ot V74.8 SCREEN- BACTERIAL DIS NEC 12/05/2015 Ot 174.9 MALIGN NEOPL BREAST NOS 12/05/2015 Ot V72.83 EXAM PRE- OPERATIVE NEC 12/05/2015 Ot 174.9 MALIGN NEOPL BREAST NOS 12/05/2015 Ot 272.0 PURE HYPERCHOLESTEROLEM 12/05/2015 Ot 536.8 STOMACH FUNCTION DIS NEC 12/05/2015 Ot V45.77 ACQRD ABSENCE OF GENITAL ORGANS 12/05/2015 Ot V58.69 OTH MED,LT, CURRENT USE 12/05/2015 Ot V86.0 ESTROGEN RECEPTOR POSITIVE STATUS [ER+] 12/05/2015 Ot 174.9 MALIGN NEOPL BREAST NOS 12/05/2015 Ot 733.90 BONE CARTILAGE DIS NOS 12/05/2015 Ot V49.81 ASYMPT POSTMENOPAUSAL STATUS (AGE-RELATE 12/05/2015 Ot V58.69 OTH MED,LT, CURRENT USE 12/05/2015 Ot V82.81 SCREENING FOR OSTEOPOROSIS 12/05/2015 Ot 397.0 TRICUSPID VALVE DISEASE 12/05/2015 Ot 424.0 MITRAL VALVE DISORDER 12/05/2015 Ot 785.1 PALPITATIONS 12/05/2015 Ot 786.09 RESPIRATORY ABNORM NEC 12/05/2015 Ot 721.0 CERVICAL SPONDYLOSIS 12/05/2015 Ot 174.9 MALIGN NEOPL BREAST NOS 12/05/2015 Ot 793.82 INCONCLUSIVE MAMMOGRAM 12/05/2015 Ot V45.77 ACQRD ABSENCE OF GENITAL ORGANS 12/05/2015 Ot 272.4 HYPERLIPIDEMIA NEC/NOS 12/05/2015 JACQUES WEBB SALES EXEC Ot 174.9 MALIGN NEOPL BREAST NOS 12/05/2015 JACQUES WEBB SALES EXEC Ot 733.90 BONE CARTILAGE DIS NOS 12/05/2015 JACQUES WEBB SALES EXEC Ot 782.62 FLUSHING 12/05/2015 JACQUES WEBB S SALES EXEC Ot V58.69 OT MED,LT,CURRENT USE 12/05/2015 JACQUES WEBB S SALES EXEC Ot V86.0 ESTROGEN RECEPTOR POSITIVE STATUS [ER+] 12/05/2015 JACQUES WEBB S SALES EXEC Ot V87.41 PERSONAL HISTORY OF ANTINEOPLASTIC CHEMO 12/05/2015 OMAR LOPEZ Ot 174.9 MALIGN NEOPL BREAST NOS 12/05/2015 OMAR LOPEZ Ot V87.41 PERSONAL HISTORY OF ANTINEOPLASTIC CHEMO 12/05/2015 JACQUES WEBB SALES EXEC Ot 174.9 MALIGN NEOPL BREAST NOS 12/05/2015 JACQUES WEBB SALES EXEC Ot 733.90 BONE CARTILAGE DIS NOS 12/05/2015 VAMSI RANDLE DO F Ot 721.3 LUMBOSACRAL SPONDYLOSIS 12/05/2015 NAHED FUENTES, RENA R Ot 272.4 HYPERLIPIDEMIA NEC/NOS 12/05/2015 JACQUES WEBB SALES EXEC Ot 174.9 MALIGN NEOPL BREAST NOS 12/05/2015 JACQUES WEBB SALES EXEC Ot 733.90 BONE CARTILAGE DIS NOS 12/05/2015 JACQUES WEBB SALES EXEC Ot V58.69 OTH MED,LT,CURRENT USE 12/05/2015 JACQUES WEBB SALES EXEC Ot V86.0 ESTROGEN RECEPTOR POSITIVE STATUS [ER+] 12/05/2015 JACQUES WEBB SALES EXEC Ot V87.41 PERSONAL HISTORY OF ANTINEOPLASTIC CHEMO 12/05/2015 JACQUES WEBB SALES EXEC Ot 174.9 MALIGN NEOPL BREAST NOS 12/05/2015 JACQUES WEBB SALES EXEC Ot 174.9 MALIGN NEOPL BREAST NOS 12/05/2015 JACQUES WEBB SALES EXEC Ot 733.90 BONE CARTILAGE DIS NOS 12/05/2015 JACQUES WEBB SALES EXEC Ot V58.69 OTH MED,LT,CURRENT USE 12/05/2015 JACQUES WEBB SALES EXEC Ot V86.0 ESTROGEN RECEPTOR POSITIVE STATUS [ER+] 12/05/2015 JACQUES WEBB SALES EXEC Ot V87.41 PERSONAL HISTORY OF ANTINEOPLASTIC CHEMO 12/05/2015 JACQUES WEBB SALES EXEC Ot 174.9 MALIGN NEOPL BREAST NOS 12/05/2015 Ot 733.00 OSTEOPOROSIS NOS 12/05/2015 JACQUES WEBB SALES EXEC Ot 174.9 MALIGN NEOPL BREAST NOS 12/05/2015 JACQUES WEBB SALES EXEC Ot 611.3 FAT NECROSIS OF BREAST 12/05/2015 JACQUES WEBB SALES EXEC Ot 174.9 MALIGN NEOPL BREAST NOS 12/05/2015 JACQUES WEBB SALES EXEC Ot 793.80 UNSPEC ABNORMAL MAMMOGRAM 12/05/2015 ERICA FUENTES, SRUTHI M Ot V72.84 EXAM PRE-OPERATIVE NOS 12/05/2015 JACQUES WEBB SALES EXEC Ot 174.9 MALIGN NEOPL BREAST NOS 12/05/2015 JACQUES WEBB SALES EXEC Ot 250.00 DIAB SURESH WO COMPL, TYPE II OR UNSPEC TY 12/05/2015 JACQUES WEBB SALES EXEC Ot 733.00 OSTEOPOROSIS NOS 12/05/2015 JACQUES WEBB SALES EXEC Ot V58.69 OTH MED,LT,CURRENT USE 12/05/2015 JACQUES WEBB SALES EXEC Ot V86.0 ESTROGEN RECEPTOR POSITIVE STATUS [ER+] 12/05/2015 JACQUES WEBB SALES EXEC Ot V87.41 PERSONAL HISTORY OF ANTINEOPLASTIC CHEMO 12/05/2015 JACQUES WEBB SALES EXEC Ot 780.4 DIZZINESS AND GIDDINESS 12/05/2015 JACQUES WEBB SALES EXEC Ot 784.0 HEADACHE 12/05/2015 JACQUES WEBB SALES EXEC Ot 174.9 MALIGN NEOPL BREAST NOS 12/05/2015 JACQUES WEBB SALES EXEC Ot R92.1 MAMMOGRAPHIC CALCIFCN FOUND ON DIAGNOSTI 12/05/2015 OMAR LOPEZ N Ot C50.412 MALIG NEOPLASM OF UPPER-OUTER QUADRANT O 12/05/2015 OMAR LOPEZ N Ot M81.0 AGE-RELATED OSTEOPOROSIS W/O CURRENT PAT 12/05/2015 OMAR LOPEZ N Ot Z17.0 ESTROGEN RECEPTOR POSITIVE STATUS [ER+] 12/05/2015 OMAR LOPEZ N Ot Z79.811 HUMAN RESOURCE INTERNSHIP (CURRENT) USE OF AROMATASE INH 12/05/2015 OMAR LOPEZ N Ot Z92.21 PERSONAL HISTORY OF ANTINEOPLASTIC CHEMO 12/15/2015 OMAR LOPEZ N Ot C50.412 MALIG NEOPLASM OF UPPER-OUTER QUADRANT O 12/15/2015 OMAR LOPEZ N Ot M81.0 AGE-RELATED OSTEOPOROSIS W/O CURRENT PAT 12/15/2015 OMAR LOPEZ N Ot Z17.0 ESTROGEN RECEPTOR POSITIVE STATUS [ER+] 12/15/2015 OMAR LOPEZ N Ot Z79.811 HUMAN RESOURCE INTERNSHIP (CURRENT) USE OF AROMATASE INH 12/15/2015 OMAR LOPEZ N Ot Z92.21 PERSONAL HISTORY OF ANTINEOPLASTIC CHEMO 12/17/2015 JACQUES WEBB SALES EXEC Ot C50.412 MALIG NEOPLASM OF UPPER-OUTER QUADRANT O 01/01/2016 OMAR LOPEZ David Ot C50.412 MALIG NEOPLASM OF UPPER-OUTER QUADRANT O 01/01/2016 OMAR LOPEZ N Ot M81.0 AGE-RELATED OSTEOPOROSIS W/O CURRENT PAT 01/01/2016 OMAR LOPEZ David Ot Z17.0 ESTROGEN RECEPTOR POSITIVE STATUS [ER+] 01/01/2016 OMAR LOPEZ N Ot Z79.811 HUMAN RESOURCE INTERNSHIP (CURRENT) USE OF AROMATASE INH 01/01/2016 OMAR LOPEZ N Ot Z92.21 PERSONAL HISTORY OF ANTINEOPLASTIC CHEMO 02/15/2016 OMAR LOPEZ N Ot C50.412 MALIG NEOPLASM OF UPPER-OUTER QUADRANT O 02/15/2016 OMAR LOPEZ N Ot M81.0 AGE-RELATED OSTEOPOROSIS W/O CURRENT PAT 02/15/2016 JOHNOMAR CASTILLO N Ot Z17.0 ESTROGEN RECEPTOR POSITIVE STATUS [ER+] 02/15/2016 OMAR LOPEZ N Ot Z79.811 HUMAN RESOURCE INTERNSHIP (CURRENT) USE OF AROMATASE INH 02/15/2016 OMAR LOPEZ David Ot Z92.21 PERSONAL HISTORY OF ANTINEOPLASTIC CHEMO 05/17/2016 Ot 174.9 MALIGN NEOPL BREAST NOS 05/17/2016 Ot 272.0 PURE HYPERCHOLESTEROLEM 05/17/2016 Ot 536.8 STOMACH FUNCTION DIS NEC 05/17/2016 Ot V45.77 ACQRD ABSENCE OF GENITAL ORGANS 05/17/2016 Ot V58.69 OTH MED,LT, CURRENT USE 05/17/2016 Ot V86.0 ESTROGEN RECEPTOR POSITIVE STATUS [ER+] 05/17/2016 Ot 174.9 MALIGN NEOPL BREAST NOS 05/17/2016 Ot 733.90 BONE CARTILAGE DIS NOS 05/17/2016 Ot V49.81 ASYMPT POSTMENOPAUSAL STATUS (AGE-RELATE 05/17/2016 Ot V58.69 OTH MED,LT, CURRENT USE 05/17/2016 Ot V82.81 SCREENING FOR OSTEOPOROSIS 05/17/2016 Ot 397.0 TRICUSPID VALVE DISEASE 05/17/2016 Ot 424.0 MITRAL VALVE DISORDER 05/17/2016 Ot 785.1 PALPITATIONS 05/17/2016 Ot 786.09 RESPIRATORY ABNORM NEC 05/17/2016 Ot 721.0 CERVICAL SPONDYLOSIS 05/17/2016 Ot 174.9 MALIGN NEOPL BREAST NOS 05/17/2016 Ot 793.82 INCONCLUSIVE MAMMOGRAM 05/17/2016 Ot V45.77 ACQRD ABSENCE OF GENITAL ORGANS 05/17/2016 Ot 272.4 HYPERLIPIDEMIA NEC/NOS 05/17/2016 JACQUES WEBB SALES EXEC Ot 174.9 MALIGN NEOPL BREAST NOS 05/17/2016 JACQUES WEBB SALES EXEC Ot 733.90 BONE CARTILAGE DIS NOS 05/17/2016 JACQUES WEBB SALES EXEC Ot 782.62 FLUSHING 05/17/2016 JACQUES WEBB SALES EXEC Ot V58.69 OTH MED,LT,CURRENT USE 05/17/2016 JACQUES WEBB SALES EXEC Ot V86.0 ESTROGEN RECEPTOR POSITIVE STATUS [ER+] 05/17/2016 JACQUES WEBB S SALES EXEC Ot V87.41 PERSONAL HISTORY OF ANTINEOPLASTIC CHEMO 05/17/2016 JOHN OMAR Hernandez Ot 174.9 MALIGN NEOPL BREAST NOS 05/17/2016 JOHNOMAR Ot V87.41 PERSONAL HISTORY OF ANTINEOPLASTIC CHEMO 05/17/2016 JACQUES WEBB SALES EXEC Ot 174.9 MALIGN NEOPL BREAST NOS 05/17/2016 JACQUES WEBB SALES EXEC Ot 733.90 BONE CARTILAGE DIS NOS 05/17/2016 JER PEREZ, VAMSI F Ot 721.3 LUMBOSACRAL SPONDYLOSIS 05/17/2016 NAHED FUENTES, RENA R Ot 272.4 HYPERLIPIDEMIA NEC/NOS 05/17/2016 JACQUES WEBB SALES EXEC Ot 174.9 MALIGN NEOPL BREAST NOS 05/17/2016 JACQUES WEBB SALES EXEC Ot 733.90 BONE CARTILAGE DIS NOS 05/17/2016 JACQUES WEBB SALES EXEC Ot V58.69 OTH MED,LT,CURRENT USE 05/17/2016 JACQUES WEBB SALES EXEC Ot V86.0 ESTROGEN RECEPTOR POSITIVE STATUS [ER+] 05/17/2016 JACQUES WEBB S SALES EXEC Ot V87.41 PERSONAL HISTORY OF ANTINEOPLASTIC CHEMO 05/17/2016 JACQUES WEBB SALES EXEC Ot 174.9 MALIGN NEOPL BREAST NOS 05/17/2016 JACQUES WEBB S SALES EXEC Ot 174.9 MALIGN NEOPL BREAST NOS 05/17/2016 JACQUES WEBB SALES EXEC Ot 733.90 BONE CARTILAGE DIS NOS 05/17/2016 JACQUES WEBB SALES EXEC Ot V58.69 OTH MED,LT,CURRENT USE 05/17/2016 JACQUES WEBB S SALES EXEC Ot V86.0 ESTROGEN RECEPTOR POSITIVE STATUS [ER+] 05/17/2016 JACQUES WEBB SALES EXEC Ot V87.41 PERSONAL HISTORY OF ANTINEOPLASTIC CHEMO 05/17/2016 JACQUES WEBB SALES EXEC Ot 174.9 MALIGN NEOPL BREAST NOS 05/17/2016 Ot 733.00 OSTEOPOROSIS NOS 05/17/2016 JACQUES WEBB S SALES EXEC Ot 174.9 MALIGN NEOPL BREAST NOS 05/17/2016 JACQUES WEBB SALES EXEC Ot 611.3 FAT NECROSIS OF BREAST 05/17/2016 JACQUES WEBB S SALES EXEC Ot 174.9 MALIGN NEOPL BREAST NOS 05/17/2016 JACQUES WEBB S SALES EXEC Ot 793.80 UNSPEC ABNORMAL MAMMOGRAM 05/17/2016 ERICA FUENTES, SRUTHI Dorsey Ot V72.84 EXAM PRE-OPERATIVE NOS 05/17/2016 JACQUES WEBB S SALES EXEC Ot 174.9 MALIGN NEOPL BREAST NOS 05/17/2016 WEBBJACQUES SALES EXEC Ot 250.00 DIAB SURESH WO COMPL, TYPE II OR UNSPEC TY 05/17/2016 KRISS WEBBLUZ Galdamez SALES EXEC Ot 733.00 OSTEOPOROSIS NOS 05/17/2016 KRISS WEBBLUZ Galdamez SALES EXEC Ot V58.69 OTH MED,LT,CURRENT USE 05/17/2016 JON JACQUES Galdamez SALES EXEC Ot V86.0 ESTROGEN RECEPTOR POSITIVE STATUS [ER+] 05/17/2016 JON JACQUES Galdamez SALES EXEC Ot V87.41 PERSONAL HISTORY OF ANTINEOPLASTIC CHEMO 05/17/2016 KRISS WEBBLUZ Galdamez SALES EXEC Ot 780.4 DIZZINESS AND GIDDINESS 05/17/2016 KRISS WEBBLUZ Denice SALES EXEC Ot 784.0 HEADACHE 05/17/2016 JON JACQUES Galdamez SALES EXEC Ot 174.9 MALIGN NEOPL BREAST NOS 05/17/2016 JON JACQUES Galdamez SALES EXEC Ot R92.1 MAMMOGRAPHIC CALCIFCN FOUND ON DIAGNOSTI 05/17/2016 JACQUES WEBB SALES EXEC Ot C50.412 MALIG NEOPLASM OF UPPER-OUTER QUADRANT O 05/17/2016 OMAR LOPEZ Ot C50.412 MALIG NEOPLASM OF UPPER-OUTER QUADRANT O 05/17/2016 OMAR LOPEZ Ot M81.0 AGE-RELATED OSTEOPOROSIS W/O CURRENT PAT 05/17/2016 OMAR LOPEZ Ot Z17.0 ESTROGEN RECEPTOR POSITIVE STATUS [ER+] 05/17/2016 OMAR LOPEZ Ot Z79.811 HUMAN RESOURCE INTERNSHIP (CURRENT) USE OF AROMATASE INH 05/17/2016 OMAR LOPEZ Ot Z92.21 PERSONAL HISTORY OF ANTINEOPLASTIC CHEMO 05/18/2016 OMAR LOPEZ Ot C50.412 MALIG NEOPLASM OF UPPER-OUTER QUADRANT O 05/18/2016 OMAR LOPEZ Ot M81.0 AGE-RELATED OSTEOPOROSIS W/O CURRENT PAT 05/18/2016 OMAR LOPEZ Ot Z17.0 ESTROGEN RECEPTOR POSITIVE STATUS [ER+] 05/18/2016 OMAR LOPEZ Ot Z79.811 HUMAN RESOURCE INTERNSHIP (CURRENT) USE OF AROMATASE INH 05/18/2016 OMAR LOPEZ Ot Z92.21 PERSONAL HISTORY OF ANTINEOPLASTIC CHEMO 06/24/2016 OMAR LOPEZ Ot C50.412 MALIG NEOPLASM OF UPPER-OUTER QUADRANT O 06/24/2016 OMAR LOPEZ Ot M81.0 AGE-RELATED OSTEOPOROSIS W/O CURRENT PAT 06/24/2016 OMAR LOPEZ Ot Z17.0 ESTROGEN RECEPTOR POSITIVE STATUS [ER+] 06/24/2016 OMAR LOPEZ Ot Z79.811 HUMAN RESOURCE INTERNSHIP (CURRENT) USE OF AROMATASE INH 06/24/2016 OMAR LOPEZ Konrad Z92.21 PERSONAL HISTORY OF ANTINEOPLASTIC CHEMO 07/29/2016 RENA DOCKERY MD Ot E11.9 TYPE 2 DIABETES MELLITUS WITHOUT COMPLIC 07/29/2016 RENA DOCKERY MD Ot E78.00 PURE HYPERCHOLESTEROLEMIA, UNSPECIFIED 07/29/2016 RENA DOCKERY MD Ot E78.5 HYPERLIPIDEMIA, UNSPECIFIED 07/29/2016 RENA DOCKERY MD Ot F32.9 MAJOR DEPRESSIVE DISORDER, SINGLE EPISOD 07/29/2016 RENA DOCKERY MD R Ot F41.9 ANXIETY DISORDER, UNSPECIFIED 07/29/2016 RENA DOCKERY MD, Ot G45.9 TRANSIENT CEREBRAL ISCHEMIC ATTACK, UNSP 07/29/2016 RENA DOCKERY MD Ot I10 ESSENTIAL (PRIMARY) HYPERTENSION 07/29/2016 RENA DOCKERY MD Ot I63.9 CEREBRAL INFARCTION, UNSPECIFIED 07/29/2016 RENA DOCKERY MD Ot N39.0 URINARY TRACT INFECTION, SITE NOT SPECIF 07/29/2016 RENA DOCKERY MD Ot R20.9 UNSPECIFIED DISTURBANCES OF SKIN SENSATI 07/29/2016 RENA DOCKERY MD R Ot R29.898 OTH SYMPTOMS AND SIGNS INVOLVING THE MUS 07/29/2016 RENA DOCKERY MD Ot Z85.3 PERSONAL HISTORY OF MALIGNANT NEOPLASM O 07/29/2016 RENA DOCKERY MD Ot Z92.21 PERSONAL HISTORY OF ANTINEOPLASTIC CHEMO 07/29/2016 RENA DOCKERY MD Ot Z92.3 PERSONAL HISTORY OF IRRADIATION 08/06/2016 Willian VEGA MD, Ot G45.9 TRANSIENT CEREBRAL ISCHEMIC ATTACK, UNSP 08/06/2016 KHALID MD, M KIANNA Ot I63.9 CEREBRAL INFARCTION, UNSPECIFIED 08/15/2016 OMAR LOPEZ Ot C50.412 MALIG NEOPLASM OF UPPER-OUTER QUADRANT O 08/15/2016 OMAR LOPEZ Ot M81.0 AGE-RELATED OSTEOPOROSIS W/O CURRENT PAT 08/15/2016 OMAR LOPEZ Ot Z17.0 ESTROGEN RECEPTOR POSITIVE STATUS [ER+] 08/15/2016 OMAR LOPEZ David Ot Z79.811 SHELTER (CURRENT) USE OF AROMATASE INH 08/15/2016 OMAR LOPEZ David Ot Z92.21 PERSONAL HISTORY OF ANTINEOPLASTIC CHEMO 08/18/2016 GARY FUENTES, Willian HUTCHISON Ot G45.9 TRANSIENT CEREBRAL ISCHEMIC ATTACK, UNSP 08/18/2016 GARY FUENTES, M KIANNA Ot I63.9 CEREBRAL INFARCTION, UNSPECIFIED 10/27/2016 GARY FUENTES, Willian HUTCHISON Ot G45.9 TRANSIENT CEREBRAL ISCHEMIC ATTACK, UNSP 10/27/2016 GARY FUENTES, Willian HUTCHISON Ot I63.9 CEREBRAL INFARCTION, UNSPECIFIED 12/07/2016 OMAR LOPEZ Ot C50.412 MALIG NEOPLASM OF UPPER-OUTER QUADRANT O 12/09/2016 OMAR LOPEZ David Ot C50.412 MALIG NEOPLASM OF UPPER-OUTER QUADRANT O 12/09/2016 OMAR LOPEZ Ot M81.0 AGE-RELATED OSTEOPOROSIS W/O CURRENT PAT 12/09/2016 OMAR LOPEZ Ot Z17.0 ESTROGEN RECEPTOR POSITIVE STATUS [ER+] 12/09/2016 OMAR LOPEZ David Ot Z79.811 SHELTER (CURRENT) USE OF AROMATASE INH 12/09/2016 OMAR LOPEZ Ot Z92.21 PERSONAL HISTORY OF ANTINEOPLASTIC CHEMO 12/15/2016 OMAR LOPEZ Ot C50.412 MALIG NEOPLASM OF UPPER-OUTER QUADRANT O 01/19/2017 OMAR LOPEZ David Ot C50.412 MALIG NEOPLASM OF UPPER-OUTER QUADRANT O 01/19/2017 OMAR LOPEZ Ot M81.0 AGE-RELATED OSTEOPOROSIS W/O CURRENT PAT 01/19/2017 OMAR LOPEZ Ot Z17.0 ESTROGEN RECEPTOR POSITIVE STATUS [ER+] 01/19/2017 OMAR LOPEZ N Ot Z79.811 HUMAN RESOURCE INTERNSHIP (CURRENT) USE OF AROMATASE INH 01/19/2017 OMAR LOPEZ Ot Z92.21 PERSONAL HISTORY OF ANTINEOPLASTIC CHEMO 03/08/2017 OMAR LOPEZ Ot C50.412 MALIG NEOPLASM OF UPPER-OUTER QUADRANT O 03/08/2017 OMAR LOPEZ Ot M81.0 AGE-RELATED OSTEOPOROSIS W/O CURRENT PAT 03/08/2017 OMAR LOPEZ Ot Z17.0 ESTROGEN RECEPTOR POSITIVE STATUS [ER+] 03/08/2017 OMAR LOPEZ Ot Z79.811 SHELTER (CURRENT) USE OF AROMATASE INH 03/08/2017 OMAR LOPEZ Ot Z92.21 PERSONAL HISTORY OF ANTINEOPLASTIC CHEMO 04/08/2017 RHONDA PEREZ NATALI Ot M16.11 UNILATERAL PRIMARY OSTEOARTHRITIS, RIGHT 04/08/2017 RHONDA PEREZ NATALI Ot M41.86 OTHER FORMS OF SCOLIOSIS, LUMBAR REGION 04/08/2017 RHONDA PEREZ NATALI Ot M47.816 SPONDYLOSIS W/O MYELOPATHY OR RADICULOPA 06/16/2017 Ot 272.4 HYPERLIPIDEMIA NEC/NOS 06/16/2017 JACQUES WEBB SALES EXEC Ot 174.9 MALIGN NEOPL BREAST NOS 06/16/2017 JACQUES WEBB SALES EXEC Ot 733.90 BONE CARTILAGE DIS NOS 06/16/2017 JACQUES WEBB SALES EXEC Ot 782.62 FLUSHING 06/16/2017 JACQUES WEBB SALES EXEC Ot V58.69 OTH MED,LT,CURRENT USE 06/16/2017 JACQUES WEBB SALES EXEC Ot V86.0 ESTROGEN RECEPTOR POSITIVE STATUS [ER+] 06/16/2017 JACQUES WEBB SALES EXEC Ot V87.41 PERSONAL HISTORY OF ANTINEOPLASTIC CHEMO 06/16/2017 OMAR LOPEZ David Ot 174.9 MALIGN NEOPL BREAST NOS 06/16/2017 OMAR LOPEZ Ot V87.41 PERSONAL HISTORY OF ANTINEOPLASTIC CHEMO 06/16/2017 JACQUES WEBB SALES EXEC Ot 174.9 MALIGN NEOPL BREAST NOS 06/16/2017 JACQUES WEBB SALES EXEC Ot 733.90 BONE CARTILAGE DIS NOS 06/16/2017 VAMSI RANDLE DO Ot 721.3 LUMBOSACRAL SPONDYLOSIS 06/16/2017 NAHED FUENTES, RENA R Ot 272.4 HYPERLIPIDEMIA NEC/NOS 06/16/2017 JACQUES WEBB SALES EXEC Ot 174.9 MALIGN NEOPL BREAST NOS 06/16/2017 JACQUES WEBB SALES EXEC Ot 733.90 BONE CARTILAGE DIS NOS 06/16/2017 JACQUES WEBB SALES EXEC Ot V58.69 OTH MED,LT,CURRENT USE 06/16/2017 JACQUES WEBB SALES EXEC Ot V86.0 ESTROGEN RECEPTOR POSITIVE STATUS [ER+] 06/16/2017 JACQUES WEBB SALES EXEC Ot V87.41 PERSONAL HISTORY OF ANTINEOPLASTIC CHEMO 06/16/2017 JACQUES WEBB SALES EXEC Ot 174.9 MALIGN NEOPL BREAST NOS 06/16/2017 JACQUES WEBB SALES EXEC Ot 174.9 MALIGN NEOPL BREAST NOS 06/16/2017 JACQUES WEBB SALES EXEC Ot 733.90 BONE CARTILAGE DIS NOS 06/16/2017 JACQUES WEBB SALES EXEC Ot V58.69 OTH MED,LT,CURRENT USE 06/16/2017 JACQUES WEBB SALES EXEC Ot V86.0 ESTROGEN RECEPTOR POSITIVE STATUS [ER+] 06/16/2017 JACQUES WEBB SALES EXEC Ot V87.41 PERSONAL HISTORY OF ANTINEOPLASTIC CHEMO 06/16/2017 JACQUES WEBB SALES EXEC Ot 174.9 MALIGN NEOPL BREAST NOS 06/16/2017 Ot 733.00 OSTEOPOROSIS NOS 06/16/2017 JACQUES WEBB SALES EXEC Ot 174.9 MALIGN NEOPL BREAST NOS 06/16/2017 JACQUES WEBB SALES EXEC Ot 611.3 FAT NECROSIS OF BREAST 06/16/2017 JACQUES WEBB SALES EXEC Ot 174.9 MALIGN NEOPL BREAST NOS 06/16/2017 JACQUES WEBB SALES EXEC Ot 793.80 UNSPEC ABNORMAL MAMMOGRAM 06/16/2017 ERICA FUENTES, SRUTHI Dorsey Ot V72.84 EXAM PRE-OPERATIVE NOS 06/16/2017 JACQUES WEBB SALES EXEC Ot 174.9 MALIGN NEOPL BREAST NOS 06/16/2017 JACQUES WEBB S SALES EXEC Ot 250.00 DIAB SURESH WO COMPL, TYPE II OR UNSPEC TY 06/16/2017 JACQUES WEBB SALES EXEC Ot 733.00 OSTEOPOROSIS NOS 06/16/2017 JACQUES WEBB SALES EXEC Ot V58.69 OTH MED,LT,CURRENT USE 06/16/2017 WEBB JACQUES Galdamez SALES EXEC Ot V86.0 ESTROGEN RECEPTOR POSITIVE STATUS [ER+] 06/16/2017 JON JACQUES Galdamez SALES EXEC Ot V87.41 PERSONAL HISTORY OF ANTINEOPLASTIC CHEMO 06/16/2017 JACQUES WEBB SALES EXEC Ot 780.4 DIZZINESS AND GIDDINESS 06/16/2017 KRISS WEBBLUZ Denice SALES EXEC Ot 784.0 HEADACHE 06/16/2017 KRISS WEBBLUZ Galdamez SALES EXEC Ot 174.9 MALIGN NEOPL BREAST NOS 06/16/2017 JON JACQUES Galdamez SALES EXEC Ot R92.1 MAMMOGRAPHIC CALCIFCN FOUND ON DIAGNOSTI 06/16/2017 JACQUES WEBB SALES EXEC Ot C50.412 MALIG NEOPLASM OF UPPER-OUTER QUADRANT O 06/16/2017 OMAR LOPEZ Ot C50.412 MALIG NEOPLASM OF UPPER-OUTER QUADRANT O 06/16/2017 GARY FUENTES, Willian HUTCHISON Ot G45.9 TRANSIENT CEREBRAL ISCHEMIC ATTACK, UNSP 06/16/2017 GARY FUENTES, Willian HUTCHISON Ot I63.9 CEREBRAL INFARCTION, UNSPECIFIED 06/16/2017 OMAR LOPEZ Ot C50.412 MALIG NEOPLASM OF UPPER-OUTER QUADRANT O 06/16/2017 OMAR LOPEZ Ot M81.0 AGE-RELATED OSTEOPOROSIS W/O CURRENT PAT 06/16/2017 OMAR LOPEZ Ot Z17.0 ESTROGEN RECEPTOR POSITIVE STATUS [ER+] 06/16/2017 OMAR LOPEZ Ot Z79.811 SHELTER (CURRENT) USE OF AROMATASE INH 06/16/2017 OMAR LOPEZ Ot Z79.899 OTHER SHELTER (CURRENT) DRUG THERAPY 06/16/2017 OMAR LOPEZ Ot Z92.21 PERSONAL HISTORY OF ANTINEOPLASTIC CHEMO 06/16/2017 NATALI ELLIS DO Ot M16.11 UNILATERAL PRIMARY OSTEOARTHRITIS, RIGHT 06/16/2017 NATALI ELLIS DO Ot M41.86 OTHER FORMS OF SCOLIOSIS, LUMBAR REGION 06/16/2017 NATALI ELLIS DO Ot M47.816 SPONDYLOSIS W/O MYELOPATHY OR RADICULOPA 06/23/2017 Ot 272.4 HYPERLIPIDEMIA NEC/NOS 06/23/2017 JACQUES WEBB SALES EXEC Ot 174.9 MALIGN NEOPL BREAST NOS 06/23/2017 JACQUES WEBB SALES EXEC Ot 733.90 BONE CARTILAGE DIS NOS 06/23/2017 JACQUES WEBB SALES EXEC Ot 782.62 FLUSHING 06/23/2017 JACQUES WEBB SALES EXEC Ot V58.69 OTH MED,LT,CURRENT USE 06/23/2017 JACQUES WEBB SALES EXEC Ot V86.0 ESTROGEN RECEPTOR POSITIVE STATUS [ER+] 06/23/2017 JACQUES WEBB SALES EXEC Ot V87.41 PERSONAL HISTORY OF ANTINEOPLASTIC CHEMO 06/23/2017 SG LOPEZKENIA N Ot 174.9 MALIGN NEOPL BREAST NOS 06/23/2017 OMAR LOPEZ N Ot V87.41 PERSONAL HISTORY OF ANTINEOPLASTIC CHEMO 06/23/2017 JACQUES WEBB SALES EXEC Ot 174.9 MALIGN NEOPL BREAST NOS 06/23/2017 JACQUES WEBB SALES EXEC Ot 733.90 BONE CARTILAGE DIS NOS 06/23/2017 JER PEREZ, VAMSI F Ot 721.3 LUMBOSACRAL SPONDYLOSIS 06/23/2017 NAHED FUENTES, RENA R Ot 272.4 HYPERLIPIDEMIA NEC/NOS 06/23/2017 JACQUES WEBB SALES EXEC Ot 174.9 MALIGN NEOPL BREAST NOS 06/23/2017 JACQUES WEBB SALES EXEC Ot 733.90 BONE CARTILAGE DIS NOS 06/23/2017 JACQUES WEBB SALES EXEC Ot V58.69 OTH MED,LT,CURRENT USE 06/23/2017 JACQUES WEBB SALES EXEC Ot V86.0 ESTROGEN RECEPTOR POSITIVE STATUS [ER+] 06/23/2017 JACQUES WEBB SALES EXEC Ot V87.41 PERSONAL HISTORY OF ANTINEOPLASTIC CHEMO 06/23/2017 JACQUES WEBB SALES EXEC Ot 174.9 MALIGN NEOPL BREAST NOS 06/23/2017 JACQUES WEBB SALES EXEC Ot 174.9 MALIGN NEOPL BREAST NOS 06/23/2017 JACQUES WEBB SALES EXEC Ot 733.90 BONE CARTILAGE DIS NOS 06/23/2017 JACQUES WEBBP Ot V58.69 OTH MED,LT,CURRENT USE 06/23/2017 JACQUES WEBB SALES EXEC Ot V86.0 ESTROGEN RECEPTOR POSITIVE STATUS [ER+] 06/23/2017 JACQUES WEBB SALES EXEC Ot V87.41 PERSONAL HISTORY OF ANTINEOPLASTIC CHEMO 06/23/2017 JON JACQUES Galdamez SALES EXEC Ot 174.9 MALIGN NEOPL BREAST NOS 06/23/2017 Ot 733.00 OSTEOPOROSIS NOS 06/23/2017 WEBB JACQUES Galdamez SALES EXEC Ot 174.9 MALIGN NEOPL BREAST NOS 06/23/2017 JON JACQUES Galdamez SALES EXEC Ot 611.3 FAT NECROSIS OF BREAST 06/23/2017 JON JACQUES Galdamez SALES EXEC Ot 174.9 MALIGN NEOPL BREAST NOS 06/23/2017 JON JACQUES S SALES EXEC Ot 793.80 UNSPEC ABNORMAL MAMMOGRAM 06/23/2017 ERICA FUENTES, SRUTHI Dorsey Ot V72.84 EXAM PRE-OPERATIVE NOS 06/23/2017 KRISS WEBBLUZ Galdamez SALES EXEC Ot 174.9 MALIGN NEOPL BREAST NOS 06/23/2017 JON JACQUES Galdamez SALES EXEC Ot 250.00 DIAB SURESH WO COMPL, TYPE II OR UNSPEC TY 06/23/2017 KRISS WEBBLUZ S SALES EXEC Ot 733.00 OSTEOPOROSIS NOS 06/23/2017 KRISS WEBBLUZ Galdamez SALES EXEC Ot V58.69 OT MED,LT,CURRENT USE 06/23/2017 JON JACQUES Galdamez SALES EXEC Ot V86.0 ESTROGEN RECEPTOR POSITIVE STATUS [ER+] 06/23/2017 JON JACQUES S SALES EXEC Ot V87.41 PERSONAL HISTORY OF ANTINEOPLASTIC CHEMO 06/23/2017 KRISS WEBBLUZ Galdamez SALES EXEC Ot 780.4 DIZZINESS AND GIDDINESS 06/23/2017 KRISS WEBBLUZ Galdamez SALES EXEC Ot 784.0 HEADACHE 06/23/2017 JON JACQUES [employer] SALES EXEC Ot 174.9 MALIGN NEOPL BREAST NOS 06/23/2017 JON JACQUES [employer] SALES EXEC Ot R92.1 MAMMOGRAPHIC CALCIFCN FOUND ON DIAGNOSTI 06/23/2017 JACQUES WEBB Denice SALES EXEC Ot C50.412 MALIG NEOPLASM OF UPPER-OUTER QUADRANT O 06/23/2017 OMAR LOPEZ Ot C50.412 MALIG NEOPLASM OF UPPER-OUTER QUADRANT O 06/23/2017 GARY FUENTES, Willian HUTCHISON Ot G45.9 TRANSIENT CEREBRAL ISCHEMIC ATTACK, UNSP 06/23/2017 GARY FUENTES, Willian HUTCHISON Ot I63.9 CEREBRAL INFARCTION, UNSPECIFIED 06/23/2017 OMAR LOPEZ Ot C50.412 MALIG NEOPLASM OF UPPER-OUTER QUADRANT O 06/23/2017 OMAR LOPEZ Ot M81.0 AGE-RELATED OSTEOPOROSIS W/O CURRENT PAT 06/23/2017 OMAR LOPEZ Ot Z17.0 ESTROGEN RECEPTOR POSITIVE STATUS [ER+] 06/23/2017 OMAR LOPEZ Ot Z79.811 SHELTER (CURRENT) USE OF AROMATASE INH 06/23/2017 OMAR LOPEZ Ot Z79.899 OTHER SHELTER (CURRENT) DRUG THERAPY 06/23/2017 OMAR LOPEZ Ot Z92.21 PERSONAL HISTORY OF ANTINEOPLASTIC CHEMO 06/23/2017 ELLIS DO NATALI Ot M16.11 UNILATERAL PRIMARY OSTEOARTHRITIS, RIGHT 06/23/2017 ELLIS DO NATALI Ot M41.86 OTHER FORMS OF SCOLIOSIS, LUMBAR REGION 06/23/2017 ELLISLYNNE PEREZ NATALI Ot M47.816 SPONDYLOSIS W/O MYELOPATHY OR RADICULOPA 06/23/2017 OMAR LOPEZ Ot C50.412 MALIG NEOPLASM OF UPPER-OUTER QUADRANT O 06/23/2017 OMAR LOPEZ Ot M81.0 AGE-RELATED OSTEOPOROSIS W/O CURRENT PAT 06/23/2017 OMAR LOPEZ Ot Z17.0 ESTROGEN RECEPTOR POSITIVE STATUS [ER+] 06/23/2017 OMAR LOPEZ Ot Z79.811 HUMAN RESOURCE INTERNSHIP (CURRENT) USE OF AROMATASE INH 06/23/2017 OMAR LOPEZ Ot Z79.899 OTHER SHELTER (CURRENT) DRUG THERAPY 06/23/2017 OMAR LOPEZ Ot Z92.21 PERSONAL HISTORY OF ANTINEOPLASTIC CHEMO 07/06/2017 OMAR LOPEZ Ot M85.88 OTH DISRD OF BONE DENSITY AND STRUCTURE, 07/06/2017 OMAR LOPEZ Ot Z78.0 ASYMPTOMATIC MENOPAUSAL STATE 07/06/2017 OMAR LOPEZ Ot Z79.811 SHELTER (CURRENT) USE OF AROMATASE INH 07/06/2017 OMAR LOPEZ Ot Z85.3 PERSONAL HISTORY OF MALIGNANT NEOPLASM O 07/20/2017 OMAR LOPEZ Ot C50.412 MALIG NEOPLASM OF UPPER-OUTER QUADRANT O 07/20/2017 OMAR LOPEZ Ot M81.0 AGE-RELATED OSTEOPOROSIS W/O CURRENT PAT 07/20/2017 OMAR LOPEZ N Ot Z17.0 ESTROGEN RECEPTOR POSITIVE STATUS [ER+] 07/20/2017 OMAR LOPEZ N Ot Z79.811 SHELTER (CURRENT) USE OF AROMATASE INH 07/20/2017 OMAR LOPEZ N Ot Z79.899 OTHER SHELTER (CURRENT) DRUG THERAPY 07/20/2017 OMAR LOPEZ N Ot Z92.21 PERSONAL HISTORY OF ANTINEOPLASTIC CHEMO 09/07/2017 OMAR LOPEZ N Ot C50.412 MALIG NEOPLASM OF UPPER-OUTER QUADRANT O 09/07/2017 OMAR LOPEZ N Ot M81.0 AGE-RELATED OSTEOPOROSIS W/O CURRENT PAT 09/07/2017 JOHNOMAR CASTILLO N Ot Z17.0 ESTROGEN RECEPTOR POSITIVE STATUS [ER+] 09/07/2017 OMAR LOPEZ N Ot Z79.811 SHELTER (CURRENT) USE OF AROMATASE INH 09/07/2017 OMAR LOPEZ N Ot Z79.899 OTHER SHELTER (CURRENT) DRUG THERAPY 09/07/2017 OMAR LOPEZ N Ot Z92.21 PERSONAL HISTORY OF ANTINEOPLASTIC CHEMO 09/08/2017 OMAR LOPEZ N Ot C50.412 MALIG NEOPLASM OF UPPER-OUTER QUADRANT O 09/08/2017 OMAR LOPEZ N Ot M81.0 AGE-RELATED OSTEOPOROSIS W/O CURRENT PAT 09/08/2017 OMAR LOPEZ N Ot Z17.0 ESTROGEN RECEPTOR POSITIVE STATUS [ER+] 09/08/2017 OMAR LOPEZ N Ot Z79.811 HUMAN RESOURCE INTERNSHIP (CURRENT) USE OF AROMATASE INH 09/08/2017 OMAR LOPEZ N Ot Z79.899 OTHER HUMAN RESOURCE INTERNSHIP (CURRENT) DRUG THERAPY 09/08/2017 OMAR LOPEZ N Ot Z92.21 PERSONAL HISTORY OF ANTINEOPLASTIC CHEMO 09/14/2017 OMAR LOPEZ N Ot C50.412 MALIG NEOPLASM OF UPPER-OUTER QUADRANT O 09/14/2017 JOHNOMAR N Ot M81.0 AGE-RELATED OSTEOPOROSIS W/O CURRENT PAT 09/14/2017 JOHNOMAR CASTILLO N Ot Z17.0 ESTROGEN RECEPTOR POSITIVE STATUS [ER+] 09/14/2017 JOHNOMAR CASTILLO N Ot Z79.811 HUMAN RESOURCE INTERNSHIP (CURRENT) USE OF AROMATASE INH 09/14/2017 OMAR LOPEZ Ot Z79.899 OTHER SHELTER (CURRENT) DRUG THERAPY 09/14/2017 OMAR LOPEZ Ot Z92.21 PERSONAL HISTORY OF ANTINEOPLASTIC CHEMO 09/16/2017 JACQUES WEBB SALES EXEC Ot 174.9 MALIGN NEOPL BREAST NOS 09/16/2017 JACQUES WEBB S SALES EXEC Ot 733.90 BONE CARTILAGE DIS NOS 09/16/2017 JACQUES WEBB SALES EXEC Ot 782.62 FLUSHING 09/16/2017 JACQUES WEBB S SALES EXEC Ot V58.69 OT MED,LT,CURRENT USE 09/16/2017 JACQUES WEBB S SALES EXEC Ot V86.0 ESTROGEN RECEPTOR POSITIVE STATUS [ER+] 09/16/2017 JACQUES WEBB S SALES EXEC Ot V87.41 PERSONAL HISTORY OF ANTINEOPLASTIC CHEMO 09/16/2017 OMAR LOPEZ Ot 174.9 MALIGN NEOPL BREAST NOS 09/16/2017 OMAR LOPEZ Ot V87.41 PERSONAL HISTORY OF ANTINEOPLASTIC CHEMO 09/16/2017 JACQUES WEBB S SALES EXEC Ot 174.9 MALIGN NEOPL BREAST NOS 09/16/2017 JACQUES WEBB S SALES EXEC Ot 733.90 BONE CARTILAGE DIS NOS 09/16/2017 VAMSI RANDLE DO F Ot 721.3 LUMBOSACRAL SPONDYLOSIS 09/16/2017 NAHED FUENTES, RENA R Ot 272.4 HYPERLIPIDEMIA NEC/NOS 09/16/2017 JACQUES WEBB S SALES EXEC Ot 174.9 MALIGN NEOPL BREAST NOS 09/16/2017 JACQUES WEBB S SALES EXEC Ot 733.90 BONE CARTILAGE DIS NOS 09/16/2017 JACQUES WEBB SALES EXEC Ot V58.69 OT MED,LT,CURRENT USE 09/16/2017 JACQUES WEBB S SALES EXEC Ot V86.0 ESTROGEN RECEPTOR POSITIVE STATUS [ER+] 09/16/2017 JACQUES WEBB S SALES EXEC Ot V87.41 PERSONAL HISTORY OF ANTINEOPLASTIC CHEMO 09/16/2017 JACQUES WEBB S SALES EXEC Ot 174.9 MALIGN NEOPL BREAST NOS 09/16/2017 JACQUES WEBB S SALES EXEC Ot 174.9 MALIGN NEOPL BREAST NOS 09/16/2017 JACQUES WEBB S SALES EXEC Ot 733.90 BONE CARTILAGE DIS NOS 09/16/2017 JACQUES WEBB Denice SALES EXEC Ot V58.69 OTH MED,LT,CURRENT USE 09/16/2017 KRISS WEBBLUZ Galdamez SALES EXEC Ot V86.0 ESTROGEN RECEPTOR POSITIVE STATUS [ER+] 09/16/2017 JON KRISSLUZ S SALES EXEC Ot V87.41 PERSONAL HISTORY OF ANTINEOPLASTIC CHEMO 09/16/2017 JACQUES WEBB S SALES EXEC Ot 174.9 MALIGN NEOPL BREAST NOS 09/16/2017 Ot 733.00 OSTEOPOROSIS NOS 09/16/2017 KRISS WEBBLUZ S SALES EXEC Ot 174.9 MALIGN NEOPL BREAST NOS 09/16/2017 KRISS WEBBLUZ S SALES EXEC Ot 611.3 FAT NECROSIS OF BREAST 09/16/2017 JACQUES WEBB S SALES EXEC Ot 174.9 MALIGN NEOPL BREAST NOS 09/16/2017 JACQUES WEBB S SALES EXEC Ot 793.80 UNSPEC ABNORMAL MAMMOGRAM 09/16/2017 ERICA FUENTES, SRUTHI Dorsey Ot V72.84 EXAM PRE-OPERATIVE NOS 09/16/2017 JACQUES WEBB SALES EXEC Ot 174.9 MALIGN NEOPL BREAST NOS 09/16/2017 JACQUES WEBB SALES EXEC Ot 250.00 DIAB SURESH WO COMPL, TYPE II OR UNSPEC TY 09/16/2017 JACQUES WEBB S SALES EXEC Ot 733.00 OSTEOPOROSIS NOS 09/16/2017 JACQUES WEBB SALES EXEC Ot V58.69 OT MED,LT,CURRENT USE 09/16/2017 KRISS WEBBLUZ Galdamez SALES EXEC Ot V86.0 ESTROGEN RECEPTOR POSITIVE STATUS [ER+] 09/16/2017 JACQUES WEBB SALES EXEC Ot V87.41 PERSONAL HISTORY OF ANTINEOPLASTIC CHEMO 09/16/2017 JACQUES WEBB SALES EXEC Ot 780.4 DIZZINESS AND GIDDINESS 09/16/2017 JACQUES WEBB S SALES EXEC Ot 784.0 HEADACHE 09/16/2017 JACQUES WEBB S SALES EXEC Ot 174.9 MALIGN NEOPL BREAST NOS 09/16/2017 JACQUES WEBB SALES EXEC Ot R92.1 MAMMOGRAPHIC CALCIFCN FOUND ON DIAGNOSTI 09/16/2017 JACQUES WEBB S SALES EXEC Ot C50.412 MALIG NEOPLASM OF UPPER-OUTER QUADRANT O 09/16/2017 OMAR LOPEZ Ot C50.412 MALIG NEOPLASM OF UPPER-OUTER QUADRANT O 09/16/2017 GARY FUENTES, Willian HUTCHISON Ot G45.9 TRANSIENT CEREBRAL ISCHEMIC ATTACK, UNSP 09/16/2017 GARY FUENTES, Willian HUTCHISON Ot I63.9 CEREBRAL INFARCTION, UNSPECIFIED 09/16/2017 NATALI ELLIS DO Ot M16.11 UNILATERAL PRIMARY OSTEOARTHRITIS, RIGHT 09/16/2017 NATALI ELLIS DO Ot M41.86 OTHER FORMS OF SCOLIOSIS, LUMBAR REGION 09/16/2017 NATALI ELLIS DO Ot M47.816 SPONDYLOSIS W/O MYELOPATHY OR RADICULOPA 09/16/2017 OMAR LOPEZ Ot M85.88 OTH DISRD OF BONE DENSITY AND STRUCTURE, 09/16/2017 OMAR LOPEZ Ot Z78.0 ASYMPTOMATIC MENOPAUSAL STATE 09/16/2017 OMAR LOPEZ Ot Z79.811 HUMAN RESOURCE INTERNSHIP (CURRENT) USE OF AROMATASE INH 09/16/2017 OMAR LOPEZ Ot Z85.3 PERSONAL HISTORY OF MALIGNANT NEOPLASM O 09/16/2017 OMAR LOPEZ Ot C50.412 MALIG NEOPLASM OF UPPER-OUTER QUADRANT O 09/16/2017 OMAR LOPEZ Ot M81.0 AGE-RELATED OSTEOPOROSIS W/O CURRENT PAT 09/16/2017 OMAR LOPEZ Ot Z17.0 ESTROGEN RECEPTOR POSITIVE STATUS [ER+] 09/16/2017 OMAR LOPEZ Ot Z79.811 SHELTER (CURRENT) USE OF AROMATASE INH 09/16/2017 OMAR LOPEZ Ot Z79.899 OTHER HUMAN RESOURCE INTERNSHIP (CURRENT) DRUG THERAPY 09/16/2017 OMAR LOPEZ Ot Z92.21 PERSONAL HISTORY OF ANTINEOPLASTIC CHEMO 09/16/2017 OMAR LOPEZ Ot C50.412 MALIG NEOPLASM OF UPPER-OUTER QUADRANT O 09/16/2017 OMAR LOPEZ Ot M81.0 AGE-RELATED OSTEOPOROSIS W/O CURRENT PAT 09/16/2017 OMAR LOPEZ Ot Z17.0 ESTROGEN RECEPTOR POSITIVE STATUS [ER+] 09/16/2017 OMAR LOPEZ Ot Z79.811 HUMAN RESOURCE INTERNSHIP (CURRENT) USE OF AROMATASE INH 09/16/2017 OMAR LOPEZ Ot Z79.899 OTHER HUMAN RESOURCE INTERNSHIP (CURRENT) DRUG THERAPY 09/16/2017 OMAR LOPEZ N Ot Z92.21 PERSONAL HISTORY OF ANTINEOPLASTIC CHEMO 09/22/2017 JACQUES WEBB SALES EXEC Ot 174.9 MALIGN NEOPL BREAST NOS 09/22/2017 JACQUES WEBB SALES EXEC Ot 733.90 BONE CARTILAGE DIS NOS 09/22/2017 JACQUES WEBB SALES EXEC Ot 782.62 FLUSHING 09/22/2017 JACQUES WEBB SALES EXEC Ot V58.69 OTH MED,LT,CURRENT USE 09/22/2017 JACQUES WEBB SALES EXEC Ot V86.0 ESTROGEN RECEPTOR POSITIVE STATUS [ER+] 09/22/2017 JACQUES WEBB S SALES EXEC Ot V87.41 PERSONAL HISTORY OF ANTINEOPLASTIC CHEMO 09/22/2017 OMAR LOPEZ N Ot 174.9 MALIGN NEOPL BREAST NOS 09/22/2017 OMAR LOPEZ David Ot V87.41 PERSONAL HISTORY OF ANTINEOPLASTIC CHEMO 09/22/2017 JACQUES WEBB SALES EXEC Ot 174.9 MALIGN NEOPL BREAST NOS 09/22/2017 JACQUES WEBB SALES EXEC Ot 733.90 BONE CARTILAGE DIS NOS 09/22/2017 JER PEREZ, VAMSI F Ot 721.3 LUMBOSACRAL SPONDYLOSIS 09/22/2017 NAHED FUENTES, RENA R Ot 272.4 HYPERLIPIDEMIA NEC/NOS 09/22/2017 JACQUES WEBB SALES EXEC Ot 174.9 MALIGN NEOPL BREAST NOS 09/22/2017 JACQUES WEBB SALES EXEC Ot 733.90 BONE CARTILAGE DIS NOS 09/22/2017 JACQUES WEBB SALES EXEC Ot V58.69 OTH MED,LT,CURRENT USE 09/22/2017 JACQUES WEBB SALES EXEC Ot V86.0 ESTROGEN RECEPTOR POSITIVE STATUS [ER+] 09/22/2017 JACQUES WEBB S SALES EXEC Ot V87.41 PERSONAL HISTORY OF ANTINEOPLASTIC CHEMO 09/22/2017 JACQUES WEBB S SALES EXEC Ot 174.9 MALIGN NEOPL BREAST NOS 09/22/2017 JACQUES WEBB S SALES EXEC Ot 174.9 MALIGN NEOPL BREAST NOS 09/22/2017 JACQUES WEBB S SALES EXEC Ot 733.90 BONE CARTILAGE DIS NOS 09/22/2017 JACQUES WEBB SALES EXEC Ot V58.69 OTH MED,LT,CURRENT USE 09/22/2017 JON JACQUES Galdamez SALES EXEC Ot V86.0 ESTROGEN RECEPTOR POSITIVE STATUS [ER+] 09/22/2017 JON JACQUES S SALES EXEC Ot V87.41 PERSONAL HISTORY OF ANTINEOPLASTIC CHEMO 09/22/2017 JON JACQUES S SALES EXEC Ot 174.9 MALIGN NEOPL BREAST NOS 09/22/2017 Ot 733.00 OSTEOPOROSIS NOS 09/22/2017 JON JACQUES S SALES EXEC Ot 174.9 MALIGN NEOPL BREAST NOS 09/22/2017 JON JACQUES S SALES EXEC Ot 611.3 FAT NECROSIS OF BREAST 09/22/2017 JON JACQUES S SALES EXEC Ot 174.9 MALIGN NEOPL BREAST NOS 09/22/2017 JON JACQUES S SALES EXEC Ot 793.80 UNSPEC ABNORMAL MAMMOGRAM 09/22/2017 ERICA FUENTES, SRUTHI Dorsey Ot V72.84 EXAM PRE-OPERATIVE NOS 09/22/2017 JON JACQUES S SALES EXEC Ot 174.9 MALIGN NEOPL BREAST NOS 09/22/2017 KRISS WEBBLUZ S SALES EXEC Ot 250.00 DIAB SURESH WO COMPL, TYPE II OR UNSPEC TY 09/22/2017 JON JACQUES S SALES EXEC Ot 733.00 OSTEOPOROSIS NOS 09/22/2017 JON JACQUES S SALES EXEC Ot V58.69 OTH MED,LT,CURRENT USE 09/22/2017 JON JACQUES Galdamez SALES EXEC Ot V86.0 ESTROGEN RECEPTOR POSITIVE STATUS [ER+] 09/22/2017 JON JACQUES S SALES EXEC Ot V87.41 PERSONAL HISTORY OF ANTINEOPLASTIC CHEMO 09/22/2017 KRISS WEBBLUZ S SALES EXEC Ot 780.4 DIZZINESS AND GIDDINESS 09/22/2017 JON JACQUES S SALES EXEC Ot 784.0 HEADACHE 09/22/2017 JON JACQUES S SALES EXEC Ot 174.9 MALIGN NEOPL BREAST NOS 09/22/2017 JON JACQUES S SALES EXEC Ot R92.1 MAMMOGRAPHIC CALCIFCN FOUND ON DIAGNOSTI 09/22/2017 JACQUES WEBB S SALES EXEC Ot C50.412 MALIG NEOPLASM OF UPPER-OUTER QUADRANT O 09/22/2017 OMAR LOPEZ Ot C50.412 MALIG NEOPLASM OF UPPER-OUTER QUADRANT O 09/22/2017 GARY FUENTES, M KIANNA Silvestre G45.9 TRANSIENT CEREBRAL ISCHEMIC ATTACK, UNSP 09/22/2017 GARY FUENTES, M KIANNA Ot I63.9 CEREBRAL INFARCTION, UNSPECIFIED 09/22/2017 NATALI ELLIS DO Ot M16.11 UNILATERAL PRIMARY OSTEOARTHRITIS, RIGHT 09/22/2017 ELLISNATALI BATISTA DO Ot M41.86 OTHER FORMS OF SCOLIOSIS, LUMBAR REGION 09/22/2017 NATALI ELLIS DO Ot M47.816 SPONDYLOSIS W/O MYELOPATHY OR RADICULOPA 09/22/2017 OMAR LOPEZ Ot M85.88 OTH DISRD OF BONE DENSITY AND STRUCTURE, 09/22/2017 OMAR LOPEZ Ot Z78.0 ASYMPTOMATIC MENOPAUSAL STATE 09/22/2017 OMAR LOPEZ Ot Z79.811 SHELTER (CURRENT) USE OF AROMATASE INH 09/22/2017 OMAR LOPEZ Ot Z85.3 PERSONAL HISTORY OF MALIGNANT NEOPLASM O 09/22/2017 OMAR LOPEZ Ot C50.412 MALIG NEOPLASM OF UPPER-OUTER QUADRANT O 09/22/2017 OMAR LOPEZ Ot M81.0 AGE-RELATED OSTEOPOROSIS W/O CURRENT PAT 09/22/2017 OMAR LOPEZ N Ot Z17.0 ESTROGEN RECEPTOR POSITIVE STATUS [ER+] 09/22/2017 OMAR LOPEZ N Ot Z79.811 HUMAN RESOURCE INTERNSHIP (CURRENT) USE OF AROMATASE INH 09/22/2017 OMAR LOPEZ N Ot Z79.899 OTHER HUMAN RESOURCE INTERNSHIP (CURRENT) DRUG THERAPY 09/22/2017 OMAR LOPEZ N Ot Z92.21 PERSONAL HISTORY OF ANTINEOPLASTIC CHEMO 09/22/2017 OMAR LOPEZ Ot C50.412 MALIG NEOPLASM OF UPPER-OUTER QUADRANT O 09/22/2017 OMAR LOPEZ N Ot M81.0 AGE-RELATED OSTEOPOROSIS W/O CURRENT PAT 09/22/2017 OMAR LOPEZ N Ot Z17.0 ESTROGEN RECEPTOR POSITIVE STATUS [ER+] 09/22/2017 OMAR LOPEZ N Ot Z79.811 SHELTER (CURRENT) USE OF AROMATASE INH 09/22/2017 OMAR LOPEZ N Ot Z79.899 OTHER HUMAN RESOURCE INTERNSHIP (CURRENT) DRUG THERAPY 09/22/2017 OMAR LOPEZ N Ot Z92.21 PERSONAL HISTORY OF ANTINEOPLASTIC CHEMO 09/26/2017 NOHEMI FUENTES, NANCY Pina Ot J32.4 CHRONIC PANSINUSITIS 09/26/2017 NANCY SONG MD Ot J32.4 CHRONIC PANSINUSITIS 10/04/2017 JACQUES WEBB SALES EXEC Ot 174.9 MALIGN NEOPL BREAST NOS 10/04/2017 JACQUES WEBB SALES EXEC Ot 733.90 BONE CARTILAGE DIS NOS 10/04/2017 JACQUES WEBB SALES EXEC Ot 782.62 FLUSHING 10/04/2017 JACQUES WEBB SALES EXEC Ot V58.69 OT MED,LT,CURRENT USE 10/04/2017 JACQUES WEBB SALES EXEC Ot V86.0 ESTROGEN RECEPTOR POSITIVE STATUS [ER+] 10/04/2017 JACQUES WEBB SALES EXEC Ot V87.41 PERSONAL HISTORY OF ANTINEOPLASTIC CHEMO 10/04/2017 OMAR LOPEZ Ot 174.9 MALIGN NEOPL BREAST NOS 10/04/2017 OMAR LOPEZ Ot V87.41 PERSONAL HISTORY OF ANTINEOPLASTIC CHEMO 10/04/2017 JACQUES WEBB SALES EXEC Ot 174.9 MALIGN NEOPL BREAST NOS 10/04/2017 JACQUES WEBB SALES EXEC Ot 733.90 BONE CARTILAGE DIS NOS 10/04/2017 VAMSI RANDLE DO Ot 721.3 LUMBOSACRAL SPONDYLOSIS 10/04/2017 NAHED FUENTES, RENA R Ot 272.4 HYPERLIPIDEMIA NEC/NOS 10/04/2017 JACQUES WEBB SALES EXEC Ot 174.9 MALIGN NEOPL BREAST NOS 10/04/2017 JACQUES WEBB SALES EXEC Ot 733.90 BONE CARTILAGE DIS NOS 10/04/2017 JACQUES WEBB SALES EXEC Ot V58.69 OT MED,LT,CURRENT USE 10/04/2017 JACQUES WEBB SALES EXEC Ot V86.0 ESTROGEN RECEPTOR POSITIVE STATUS [ER+] 10/04/2017 JACQUES WEBB SALES EXEC Ot V87.41 PERSONAL HISTORY OF ANTINEOPLASTIC CHEMO 10/04/2017 JACQUES WEBB SALES EXEC Ot 174.9 MALIGN NEOPL BREAST NOS 10/04/2017 JACQUES WEBB SALES EXEC Ot 174.9 MALIGN NEOPL BREAST NOS 10/04/2017 JACQUES WEBB SALES EXEC Ot 733.90 BONE CARTILAGE DIS NOS 10/04/2017 JACQUES WEBB SALES EXEC Ot V58.69 OTH MED,LT,CURRENT USE 10/04/2017 KRISS WEBBLUZ Galdamez SALES EXEC Ot V86.0 ESTROGEN RECEPTOR POSITIVE STATUS [ER+] 10/04/2017 JACQUES WEBB SALES EXEC Ot V87.41 PERSONAL HISTORY OF ANTINEOPLASTIC CHEMO 10/04/2017 JACQUES WEBB Denice SALES EXEC Ot 174.9 MALIGN NEOPL BREAST NOS 10/04/2017 Ot 733.00 OSTEOPOROSIS NOS 10/04/2017 JACQUES WEBB SALES EXEC Ot 174.9 MALIGN NEOPL BREAST NOS 10/04/2017 KRISS WEBBLUZ Galdamez SALES EXEC Ot 611.3 FAT NECROSIS OF BREAST 10/04/2017 JACQUES WEBB Denice SALES EXEC Ot 174.9 MALIGN NEOPL BREAST NOS 10/04/2017 JACQUES WEBB SALES EXEC Ot 793.80 UNSPEC ABNORMAL MAMMOGRAM 10/04/2017 ERICA FUENTES, SRUTHI Dorsey Ot V72.84 EXAM PRE-OPERATIVE NOS 10/04/2017 JACQUES WEBB SALES EXEC Ot 174.9 MALIGN NEOPL BREAST NOS 10/04/2017 KRISS WEBBLUZ Galdamez SALES EXEC Ot 250.00 DIAB SURESH WO COMPL, TYPE II OR UNSPEC TY 10/04/2017 JACQUES WEBB Denice SALES EXEC Ot 733.00 OSTEOPOROSIS NOS 10/04/2017 JACQUES WEBB SALES EXEC Ot V58.69 OTH MED,LT,CURRENT USE 10/04/2017 JACQUES WEBB Denice SALES EXEC Ot V86.0 ESTROGEN RECEPTOR POSITIVE STATUS [ER+] 10/04/2017 JACQUES WEBB SALES EXEC Ot V87.41 PERSONAL HISTORY OF ANTINEOPLASTIC CHEMO 10/04/2017 JACQUES WEBB SALES EXEC Ot 780.4 DIZZINESS AND GIDDINESS 10/04/2017 JACQUES WEBB SALES EXEC Ot 784.0 HEADACHE 10/04/2017 JACQUES WEBB SALES EXEC Ot 174.9 MALIGN NEOPL BREAST NOS 10/04/2017 JACQUES WEBB SALES EXEC Ot R92.1 MAMMOGRAPHIC CALCIFCN FOUND ON DIAGNOSTI 10/04/2017 JACQUES WEBB SALES EXEC Ot C50.412 MALIG NEOPLASM OF UPPER-OUTER QUADRANT O 10/04/2017 OMAR LOPEZ Ot C50.412 MALIG NEOPLASM OF UPPER-OUTER QUADRANT O 10/04/2017 GARY FUENTES, Willian HUTCHISON Ot G45.9 TRANSIENT CEREBRAL ISCHEMIC ATTACK, UNSP 10/04/2017 GARY FUENTES, Willian HUTCHISON Ot I63.9 CEREBRAL INFARCTION, UNSPECIFIED 10/04/2017 NATALI ELLIS DO Ot M16.11 UNILATERAL PRIMARY OSTEOARTHRITIS, RIGHT 10/04/2017 ELLISNATALI BATISTA DO Ot M41.86 OTHER FORMS OF SCOLIOSIS, LUMBAR REGION 10/04/2017 NATALI ELLIS DO Ot M47.816 SPONDYLOSIS W/O MYELOPATHY OR RADICULOPA 10/04/2017 OMAR LOPEZ Ot M85.88 OTH DISRD OF BONE DENSITY AND STRUCTURE, 10/04/2017 OMAR LOPEZ Ot Z78.0 ASYMPTOMATIC MENOPAUSAL STATE 10/04/2017 OMAR LOPEZ Ot Z79.811 SHELTER (CURRENT) USE OF AROMATASE INH 10/04/2017 OMAR LOPEZ Ot Z85.3 PERSONAL HISTORY OF MALIGNANT NEOPLASM O 10/04/2017 NOHEMI FUENTES, NANCY Pina Ot J32.4 CHRONIC PANSINUSITIS 10/04/2017 OMAR LOPEZ Ot C50.412 MALIG NEOPLASM OF UPPER-OUTER QUADRANT O 10/04/2017 OMAR LOPEZ Ot M81.0 AGE-RELATED OSTEOPOROSIS W/O CURRENT PAT 10/04/2017 OMAR LOPEZ Ot Z17.0 ESTROGEN RECEPTOR POSITIVE STATUS [ER+] 10/04/2017 OMAR LOPEZ Ot Z79.811 SHELTER (CURRENT) USE OF AROMATASE INH 10/04/2017 OMAR LOPEZ Ot Z79.899 OTHER SHELTER (CURRENT) DRUG THERAPY 10/04/2017 OMAR LOPEZ Ot Z92.21 PERSONAL HISTORY OF ANTINEOPLASTIC CHEMO Procedures Code Description Performed By Performed On 85.0 MASTOTOMY 01/04/2011 Results Test Result Range Complete blood count (CBC) with automated white blood cell (WBC) differential - 07/28/16 21:02 Blood leukocytes automated count (number/volume) 7.1 10*3/uL 4.3-11.0 Blood erythrocytes automated count (number/volume) 4.88 10*6/uL 4.35-5.85 Venous blood hemoglobin measurement (mass/volume) 14.4 g/dL 11.5-16.0 Blood hematocrit (volume fraction) 43 % 35-52 Automated erythrocyte mean corpuscular volume 89 [foz_us] 80-99 Automated erythrocyte mean corpuscular hemoglobin (mass per erythrocyte) 30 pg 25-34 Automated erythrocyte mean corpuscular hemoglobin concentration measurement ( mass/volume) 33 g/dL 32-36 Automated erythrocyte distribution width ratio 13.0 % 10.0-14.5 Automated blood platelet count (count/volume) 245 10*3/uL 130-400 Automated blood platelet mean volume measurement 10.2 [foz_us] 7.4-10.4 Automated blood neutrophils/100 leukocytes 59 % 42-75 Automated blood lymphocytes/100 leukocytes 30 % 12-44 Blood monocytes/100 leukocytes 9 % 0-12 Automated blood eosinophils/100 leukocytes 2 % 0-10 Automated blood basophils/100 leukocytes 1 % 0-10 Blood neutrophils automated count (number/volume) 4.2 10*3 1.8-7.8 Blood lymphocytes automated count (number/volume) 2.1 10*3 1.0-4.0 Blood monocytes automated count (number/volume) 0.6 10*3 0.0-1.0 Automated eosinophil count 0.1 10*3/uL 0.0-0.3 Automated blood basophil count (count/volume) 0.0 10*3/uL 0.0-0.1 PT panel in platelet poor plasma by coagulation assay - 07/28/16 21:02 Prothrombin time (PT) in platelet poor plasma by coagulation assay 12.7 s 12.2-14.7 INR in platelet poor plasma or blood by coagulation assay 1.0 0.8-1.4 Activated partial thromboplastin time (aPTT) in platelet poor plasma bycoagulation assay - 07/28/16 21:02 Activated partial thromboplastin time (aPTT) in platelet poor plasma bycoagulation assay 24 s 24-35 Fibrin D-dimer FEU measurement in platelet poor plasma (mass/volume) - 21:02 Fibrin D-dimer FEU measurement in platelet poor plasma (mass/volume) < ug/mL 0.00-0.49 Comprehensive metabolic panel - 07/28/16 21:02 Serum or plasma sodium measurement (moles/volume) 138 mmol/L 135-145 Serum or plasma potassium measurement (moles/volume) 3.7 mmol/L 3.6-5.0 Serum or plasma chloride measurement (moles/volume) 105 mmol/L 98-107 Carbon dioxide 19 mmol/L 21-32 Serum or plasma anion gap determination (moles/volume) 14 mmol/L 5-14 Serum or plasma urea nitrogen measurement (mass/volume) 13 mg/dL 7-18 Serum or plasma creatinine measurement (mass/volume) 0.89 mg/dL 0.60-1.30 Serum or plasma urea nitrogen/creatinine mass ratio 15 NRG Serum or plasma creatinine measurement with calculation of estimated glomerular filtration rate > NRG Serum or plasma glucose measurement (mass/volume) 194 mg/dL 70-105 Serum or plasma calcium measurement (mass/volume) 9.4 mg/dL 8.5-10.1 Serum or plasma total bilirubin measurement (mass/volume) 0.4 mg/dL 0.1-1.0 Serum or plasma alkaline phosphatase measurement (enzymatic activity/volume) 80 U/L 40-136 Serum or plasma aspartate aminotransferase measurement (enzymatic activity/ volume) 24 U/L 5-34 Serum or plasma alanine aminotransferase measurement (enzymatic activity/volume ) 40 U/L 0-55 Serum or plasma protein measurement (mass/volume) 7.3 g/dL 6.4-8.2 Serum or plasma albumin measurement (mass/volume) 4.4 g/dL 3.2-4.5 Magnesium - 07/28/16 21:02 Magnesium 2.2 mg/dL 1.8-2.4 Serum or plasma troponin i.cardiac measurement (mass/volume) - 07/28/16 21:02 Serum or plasma troponin i.cardiac measurement (mass/volume) < ng/ mL <0.30 Serum or plasma ethanol measurement (mass/volume) - 07/28/16 21:02 Serum or plasma ethanol measurement (mass/volume) 52 mg/dL <10 Capillary blood glucose measurement by glucometer (mass/volume) - 07/28/16 21: 08 Capillary blood glucose measurement by glucometer (mass/volume) 185 mg/dL 70-110 Complete urinalysis with reflex to culture - 07/28/16 21:26 Urine color determination YELLOW NRG Urine clarity determination CLEAR NRG Urine pH measurement by test strip 6 5-9 Specific gravity of urine by test strip 1.010 1.016- 1.022 Urine protein assay by test strip, semi-quantitative NEGATIVE NEGATIVE Urine glucose detection by automated test strip 2+ NEGATIVE Erythrocytes detection in urine sediment by light microscopy NEGATIVE NEGATIVE Urine ketones detection by automated test strip NEGATIVE NEGATIVE Urine nitrite detection by test strip POSITIVE NEGATIVE Urine total bilirubin detection by test strip NEGATIVE NEGATIVE Urine urobilinogen measurement by automated test strip (mass/volume) NORMAL NORMAL Urine leukocyte esterase detection by dipstick 1+ NEGATIVE Automated urine sediment erythrocyte count by microscopy (number/high power field) NONE NRG Automated urine sediment leukocyte count by microscopy (number/high power field ) [HPF] NRG Bacteria detection in urine sediment by light microscopy LARGE NRG Crystals detection in urine sediment by light microscopy NONE NRG Casts detection in urine sediment by light microscopy NONE NRG Mucus detection in urine sediment by light microscopy NEGATIVE NRG Complete urinalysis with reflex to culture YES NRG Urine drug screening test - 07/28/16 21:26 Urine phencyclidine detection by screening method NEGATIVE NEGATIVE Urine benzodiazepines detection by screening method NEGATIVE NEGATIVE Urine cocaine detection NEGATIVE NEGATIVE Urine amphetamines detection by screening method NEGATIVE NEGATIVE Urine methamphetamine detection by screening method NEGATIVE NEGATIVE Urine cannabinoids detection by screening method NEGATIVE NEGATIVE Urine opiates detection by screening method NEGATIVE NEGATIVE Urine barbiturates detection NEGATIVE NEGATIVE Screening urine tricyclic antidepressants detection NEGATIVE NEGATIVE Urine methadone detection by screening method NEGATIVE NEGATIVE Urine oxycodone detection NEGATIVE NEGATIVE Urine propoxyphene detection NEGATIVE NEGATIVE Bacterial urine culture - 07/28/16 21:26 Bacterial urine culture [id number] NRG COLONY COUNT >100,000/ML NRG FTX;REPORTABLE SENSITIVITY REPORTED 07/29/16 17:00 NRG URINE CULTURE RESULTS PLUS NRG Bacterial susceptibility panel - 07/28/16 21:26 Gentamicin susceptibility test by minimum inhibitory concentration < = NRG Trimethoprim/sulfamethoxazole susceptibility test by minimum inhibitoryconcentration <= NRG Ampicillin susceptibility test by minimum inhibitory concentration > = NRG Tobramycin susceptibility test by minimum inhibitory concentration < = NRG Cefazolin susceptibility test by minimum inhibitory concentration < = NRG Ceftriaxone susceptibility test by minimum inhibitory concentration <= NRG Ampicillin/sulbactam susceptibility test by minimum inhibitory concentration 4 NRG Piperacillin/tazobactam susceptibility test by minimum inhibitory concentration <= NRG Ciprofloxacin susceptibility test by minimum inhibitory concentration <= NRG Meropenem susceptibility test by minimum inhibitory concentration < = NRG Nitrofurantoin susceptibility test by minimum inhibitory concentration <= NRG Aztreonam susceptibility test by minimum inhibitory concentration < = NRG Extended spectrum beta lactamase (ESBL) producing bacteria susceptibility test by minimum inhibitory concentration - [facility] Methicillin resistant Staphylococcus aureus (MRSA) screening culture - 23:55 Methicillin resistant Staphylococcus aureus (MRSA) screening culture NEG [facility] Complete blood count (CBC) with automated white blood cell (WBC) differential - 07/29/16 03:37 Blood leukocytes automated count (number/volume) 8.0 10*3/uL 4.3-11.0 Blood erythrocytes automated count (number/volume) 4.46 10*6/uL 4.35-5.85 Venous blood hemoglobin measurement (mass/volume) 13.3 g/dL 11.5-16.0 Blood hematocrit (volume fraction) 40 % 35-52 Automated erythrocyte mean corpuscular volume 89 [foz_us] 80-99 Automated erythrocyte mean corpuscular hemoglobin (mass per erythrocyte) 30 pg 25-34 Automated erythrocyte mean corpuscular hemoglobin concentration measurement ( mass/volume) 34 g/dL 32-36 Automated erythrocyte distribution width ratio 12.8 % 10.0-14.5 Automated blood platelet count (count/volume) 206 10*3/uL 130-400 Automated blood platelet mean volume measurement 10.7 [foz_us] 7.4-10.4 Automated blood neutrophils/100 leukocytes 67 % 42-75 Automated blood lymphocytes/100 leukocytes 22 % 12-44 Blood monocytes/100 leukocytes 10 % 0-12 Automated blood eosinophils/100 leukocytes 1 % 0-10 Automated blood basophils/100 leukocytes 1 % 0-10 Blood neutrophils automated count (number/volume) 5.3 10*3 1.8-7.8 Blood lymphocytes automated count (number/volume) 1.7 10*3 1.0-4.0 Blood monocytes automated count (number/volume) 0.8 10*3 0.0-1.0 Automated eosinophil count 0.1 10*3/uL 0.0-0.3 Automated blood basophil count (count/volume) 0.0 10*3/uL 0.0-0.1 Comprehensive metabolic panel - 07/29/16 03:37 Serum or plasma sodium measurement (moles/volume) 137 mmol/L 135-145 Serum or plasma potassium measurement (moles/volume) 3.9 mmol/L 3.6-5.0 Serum or plasma chloride measurement (moles/volume) 105 mmol/L 98-107 Carbon dioxide 21 mmol/L 21-32 Serum or plasma anion gap determination (moles/volume) 11 mmol/L 5-14 Serum or plasma urea nitrogen measurement (mass/volume) 11 mg/dL 7-18 Serum or plasma creatinine measurement (mass/volume) 0.80 mg/dL 0.60-1.30 Serum or plasma urea nitrogen/creatinine mass ratio 14 NRG Serum or plasma creatinine measurement with calculation of estimated glomerular filtration rate > NRG Serum or plasma glucose measurement (mass/volume) 296 mg/dL 70-105 Serum or plasma calcium measurement (mass/volume) 8.5 mg/dL 8.5-10.1 Serum or plasma total bilirubin measurement (mass/volume) 0.5 mg/dL 0.1-1.0 Serum or plasma alkaline phosphatase measurement (enzymatic activity/volume) 64 U/L 40-136 Serum or plasma aspartate aminotransferase measurement (enzymatic activity/ volume) 18 U/L 5-34 Serum or plasma alanine aminotransferase measurement (enzymatic activity/volume ) 34 U/L 0-55 Serum or plasma protein measurement (mass/volume) 6.4 g/dL 6.4-8.2 Serum or plasma albumin measurement (mass/volume) 3.7 g/dL 3.2-4.5 Serum or plasma phosphate measurement (mass/volume) - 07/29/16 03:37 Serum or plasma phosphate measurement (mass/volume) 3.7 mg/dL 2.3-4.7 Magnesium - 07/29/16 03:37 Magnesium 2.0 mg/dL 1.8-2.4 Hemoglobin A1c - 07/29/16 08:37 Hemoglobin A1c 9.1 % 4.5-6.2 Capillary blood glucose measurement by glucometer (mass/volume) - 07/29/16 11: 33 Capillary blood glucose measurement by glucometer (mass/volume) 145 mg/dL 70-110 Encounters ACCT No. Visit Date/Time Discharge Status Pt. Type Provider Facility Loc./Unit Complaint [id number] 11/24/2017 10:43:00 11/24/2017 12:34:00 DIS Outpatient VERONA BIRD MD [facility] PREOP COLONOSCOPY [id number] 09/23/2017 08:09:00 09/23/2017 23:59:59 CLS Outpatient NANCY SONG MD [facility] RAD CHRONIC PAIN SINUSITIS [id number] 09/15/2017 00:10:00 09/15/2017 23:59:59 CLS Preadmit OMAR LOPEZ [facility] ONC [id number] 06/16/2017 10:43:00 09/14/2017 00:01:00 DIS Outpatient OMAR LOPEZ [facility] ONC [id number] 09/08/2017 00:09:00 09/08/2017 23:59:59 CLS Preadmit OMAR LOPEZ [facility] ONC [id number] 06/09/2017 09:00:00 09/07/2017 00:01:00 DIS Outpatient OMAR LOPEZ [facility]C [id number] 06/23/2017 09:48:00 06/23/2017 23:59:59 CLS Outpatient OMAR LOPEZ [facility] RAD POST MENOPAUSAL, OSTEOPENIA [id number] 04/07/2017 14:46:00 04/07/2017 23:59:59 CLS Outpatient ELLISLYNNE PEREZ NATALI [facility] RAD M25.551 [id number] 12/08/2016 08:47:00 03/08/2017 00:01:00 DIS Outpatient OMAR LOPEZ [facility] ONC [id number] 12/06/2016 09:35:00 12/06/2016 23:59:59 CLS Outpatient OMAR LOPEZ [facility] RAD BREAST CA [id number] 10/28/2016 16:30:00 10/28/2016 23:59:59 CLS Preadmit Willian VEGA MD [facility] CARD CVA [id number] 08/26/2016 07:41:00 10/27/2016 00:01:00 DIS Outpatient Willian VEGA MD [facility] CARD CVA [id number] 05/17/2016 12:55:00 08/15/2016 00:01:00 DIS Outpatient OMAR LOPEZ [facility] ONC [id number] 07/28/2016 21:15:00 07/29/2016 16:15:00 DIS Inpatient NAHED FUENTES, RENA R [facility] ICU CVA WITH R SIDE WEAKNESS PARESTHESIAS/UTI [id number] 11/17/2015 14:13:00 02/15/2016 00:01:00 DIS Outpatient OMAR LOPEZ [facility] ONC [id number] 12/05/2015 08:49:00 12/05/2015 23:59:59 CLS Outpatient JACQUES WEBB [employer]ES [employer] [facility] RAD BREAST CA [id number] 05/19/2015 13:20:00 08/17/2015 00:01:00 DIS Outpatient OMAR LOPEZ [facility] ONC [id number] 03/04/2015 12:19:00 03/04/2015 23:59:59 CLS Outpatient JACQUES WEBB S SALES EXEC [facility] RAD ABN MAMMO BREAST CA [id number] 12/02/2014 10:46:00 12/02/2014 23:59:59 CLS Outpatient JACQUES WEBB S SALES [employer]EC [facility] RAD BREAST CANCER [id number] 11/27/2014 12:52:00 11/27/2014 23:59:59 CLS Outpatient JACQUES WEBB S [employer]ES [employer] [facility] RAD HEADACHE, LIGHT HEADINESS [id number] 11/25/2014 13:05:00 11/25/2014 23:59:59 CLS Outpatient JACQUES WEBB S SALES EXEC [facility] ONC [id number] 06/10/2014 12:44:00 09/08/2014 00:01:00 DIS Outpatient OMAR LOPEZ [facility] ONC [id number] 07/01/2014 08:50:00 07/01/2014 11:41:00 DIS Outpatient SRUTHI MALDONADO MD [facility] SDC HX OF POLYPS FECAL INCONTINENCE [id number] 06/27/2014 06:07:00 06/27/2014 23:59:59 CLS Outpatient SRUTHI MALDONADO MD [facility] PREOP HX POLYPS FECTAL INCONTINENC [id number] 12/10/2013 15:50:00 03/10/2014 00:01:00 DIS Outpatient OMAR LOPEZ [facility] ONC [id number] 02/19/2014 08:27:00 02/19/2014 23:59:59 CLS Outpatient JACQUES [employer]BB [employer] [facility] RAD BREAST CA, ABNORMAL MAMMO [id number] 12/17/2013 10:37:00 12/17/2013 23:59:59 CLS Outpatient JACQUES WEBB S SALES EXEC [facility] RAD ABNORMAL MAMMO [id number] 12/12/2013 07:49:00 12/12/2013 23:59:59 CLS Outpatient JACQUES WEBB [employer] [facility] RAD BREAST CA [id number] 12/10/2013 14:45:00 12/10/2013 23:59:59 CLS Outpatient JACQUES WEBB S [employer]EC [facility] ONC [id number] 06/11/2013 09:19:00 09/09/2013 00:01:00 DIS Outpatient OMAR LOPEZ [facility] ONC [id number] 04/27/2013 08:40:00 04/27/2013 23:59:59 CLS Outpatient JACQUES [employer]BB [employer] [facility] RAD BREAST CA [id number] 04/25/2013 20:00:00 04/26/2013 06:40:00 DIS Outpatient NOHEMI FUENTES, NANCY Pina [facility] SLEEP RAUL,DAYTIME SLEEPINESS [id number] 03/14/2013 10:04:00 03/14/2013 23:59:59 CLS Outpatient JACQUES [employer]BB [employer] [facility] ONC [id number] 12/06/2012 17:39:00 03/06/2013 00:01:00 DIS Outpatient OMAR LOPEZ [facility] ONC [id number] 12/06/2012 16:36:00 12/06/2012 23:59:59 CLS Outpatient NAHED FUENTES, RENA Smith [facility] LAB OUTSIDE LAB [id number] 12/06/2012 09:28:00 12/06/2012 23:59:59 CLS Outpatient OMAR LOPEZ [facility] ONC [id number] 10/12/2012 15:02:00 10/12/2012 23:59:59 CLS Outpatient VAMSI RANDLE DO [facility] RAD LUMBAR SPONDYLOSIS, DJD [id number] 10/06/2012 08:01:00 10/06/2012 23:59:59 CLS Outpatient JACQUES WEBB [facility] RAD BREAST CA,OSTEOPENIA [id number] 08/18/2012 09:58:00 08/18/2012 23:59:59 CLS Outpatient JACQUES WEBB [facility] ONC [id number] 11/25/2017 10:15:00 PEN PreadVERONA Edwards MD [facility] ENDO CHANGE IN BOWEL HABITS [id number] 06/10/2014 12:45:00 Document Registration [id number] 06/10/2014 12:45:00 Document Registration [id number] 06/10/2014 12:45:00 Document Registration [id number] 06/10/2014 12:45:00 Document Registration [id number] 06/10/2014 12:45:00 Document Registration [id number] 06/10/2014 12:45:00 Document Registration [id number] 06/10/2014 12:45:00 Document Registration [id number] 06/10/2014 12:45:00 Document Registration [id number] 06/10/2014 12:45:00 Document Registration [id number] 06/10/2014 12:45:00 Document Registration [id number] 06/10/2014 12:44:00 Document Registration [id number] 05/18/2012 10:30:00 Document Registration [id number] 02/16/2012 13:18:00 Document Registration [id number] 02/16/2012 09:24:00 Document Registration [id number] 08/30/2011 13:26:00 Document Registration [id number] 07/15/2011 11:23:00 Document Registration [id number] 06/24/2011 10:06:00 Document Registration [id number] 03/09/2011 13:32:00 Document Registration [id number] 01/04/2011 09:58:00 Document Registration [id number] 12/03/2010 09:10:00 Document Registration [id number] 11/12/2010 07:14:00 Document Registration [id number] 11/11/2010 11:57:00 Document Registration [id number] 10/19/2010 08:36:00 Document Registration [id number] 09/29/2010 12:21:00 Document Registration [id number] 08/28/2010 05:45:00 Document Registration [id number] 09/11/2009 11:04:00 Document Registration [id number] 08/26/2009 05:33:00 Document Registration [id number] 08/20/2009 09:22:00 Document Registration [id number] 08/07/2009 09:46:00 Document Registration
[2017-11-25] MEDS: NS IV 500 ML 500 ML IV PRN ×2 (11:05→12:40)
[2017-11-25] MEDS ORDERED: fentaNYL INJECTION 100 MCG/2 ML AMP IVP ONE (11:15)
[2017-11-25] MEDS ORDERED: MIDAZOLAM 2 MG/2 ML (VERSED) VIAL IVP ONE (11:15)
--- NOTE | 2017-11-25 11:37 | Progress Note-Pre Operative ---
Pre-Operative Progress Note H&P Reviewed The H&P was reviewed, patient examined and no changes noted. Date Seen by Provider: Nov 25, 2017 Time Seen by Provider: 11:30 Date H&P Reviewed: Nov 25, 2017 Time H&P Reviewed: 11:30 Pre-Operative Diagnosis: change in bowel habits. VERONA BIRD MD Nov 25, 2017 11:37 am
--- NOTE | 2017-11-25 11:37 | Conscious Sedation/ASA ---
Conscious Sedation Pre-Proced Time Reviewed: 11:30 ASA Class: 2 Airway Mallampati Classification: ([place] appropriate class) I. II. III, IV Lungs Heart ASA score ASA 1: a normal healthy patient ASA 2: a patient with a mild systemic disease (mid diabetes, controlled hypertension, obesity ASA 3: a patient with a severe systemic disease that limits activity (angina , COPD, prior Myocardial infarction) ASA 4: a patient with an incapacitating disease that is a constant threat to life (CHF, renal failure) ASA 5: a moribund patient not expected to survive 24 hrs. (ruptured aneurysm) ASA 6: a declared brain patient whose organs are being harvested. For emergent operations, add the letter E after the classification Grade 2 Sedation Plan: Analgesia, Amnesia, Plan communicated to team members, Discussed options with patient/fam, Discussed risks with patient/fam Note The patient is an appropriate candidate to undergo the planned procedure, sedation, and anesthesia. The patient immediately re-assessed prior to indication. VERONA BIRD MD Nov 25, 2017 11:37 am
[2017-11-25] MEDS ORDERED: ONDANSETRON 4 MG/2 ML (SDV) Z0FRAN IV PRN (11:45)
[2017-11-25] MEDS ORDERED: HYDROcodone/APAP 5 MG/325 MG (LORTAB) TAB PO PRN (11:45)
[2017-11-25] MEDS ORDERED: ACETAMINOPHEN 325 MG TABLET PO PRN (11:45)
[2017-11-25] MEDS ORDERED: morphine INJ 10 MG/ML 1ML (SYR OR VIAL) IV PRN (11:45)
[2017-11-25] MEDS ORDERED: MIDAZOLAM 2 MG/2 ML (VERSED) VIAL ONE ×4 (12:02)
[2017-11-25] MEDS ORDERED: fentaNYL INJECTION 100 MCG/2 ML AMP ONE (12:02)
--- NOTE | 2017-11-25 13:07 | Progress Note-Post Operative ---
Post-Operative Progess Note Surgeon (s)/Powerhouse Mechanic Supervisor (s) Surgeon VERONA BIRD MD Powerhouse Mechanic Supervisor: none Pre-Operative Diagnosis change in bowel habits. Post-Operative Diagnosis chronic stage 1 ext and int hemorrhoids, mild sigmoid diverticulosis, small HP polyp splenic flexure(1-2mm). Procedure & Operative Findings Date of Procedure 11/25/17 Procedure Performed/Findings Colonoscopy with bx. Anesthesia Type CS Estimated Blood Loss Estimated blood loss (mL): minimal Specimens/Packing Specimens Removed splenic flexure polyp VERONA BIRD MD Nov 25, 2017 1:07 pm
--- NOTE | 2017-11-25 13:08 | Discharge Inst-Surgical ---
D/C Lap Instructions-MARGE Follow Up 10 years or PRN Activity as tolerated High Fiber Diet 25g or more per day Avoid Alcohol, Caffeine, Spicy Stites and Acid foods. Drink 64 fluid oz or more of fluids per day. Symptoms to Report: Fever over 101 degree F, Nausea/Vomiting If any problems/questions: Contact your physician or go to Emergency Room VERONA BIRD MD Nov 25, 2017 1:08 pm
[2017-11-25 13:20] VITALS: BP 118/56
[2017-11-25] MEDS ORDERED: LIDOCAINE JELLY 2% (XYLOCAINE) 5 ML TUBE TOP ONE (13:45)
[2017-11-25 13:50] VITALS: BP 140/77
[2017-11-25 14:05] VITALS: BP 140/77
--- NOTE | 2017-11-25 18:06 | OPERATIVE REPORT ---
DATE OF SERVICE: 11/25/2017 ATTENDING PRIMARY CARE PHYSICIAN: Dr. Patel. PREOPERATIVE DIAGNOSIS: Screening colonoscopy, change in bowel habits. POSTOPERATIVE DIAGNOSES: Mild chronic stage I external and internal hemorrhoids; mild sigmoid diverticulosis; small hyperplastic polyp of the splenic flexure, 1 to 2 mm in size. PROCEDURE: Colonoscopy with biopsy. SURGEON: Verona Bird MD ANESTHESIA: Conscious sedation. ESTIMATED BLOOD LOSS: Minimal. FINDINGS: Mild chronic stage I external and internal hemorrhoids, not actively edematous nor inflamed and no bleeding. There was a mild sigmoid diverticulosis with no signs of diverticulitis. A small hyperplastic polyp of the splenic flexure approximately 1 to 2 mm in size. DISPOSITION: The patient tolerated the procedure well. INDICATIONS: The patient is a 67-year-old female with a 2-month history of diarrhea as well as constipation. She reports that she has had some mild lower crampy abdominal pain as well, however, not severe. She did have a colonoscopy in 2014 and does not remember any issues. She also does not report any family history of colon cancer. DESCRIPTION OF PROCEDURE: The patient was brought to the endoscopy suite, laid in the left lateral decubitus position. After adequate IV pain and sedative medications and conscious sedation anesthesia, a digital rectal examination was performed. Mild stage I chronic external and internal hemorrhoids were identified, which were not actively edematous nor inflamed and no bleeding. Normal sphincter tone was felt and there were no palpable masses. The endoscope was then intubated to the anus and rectum gently insufflated. The endoscope was then advanced through the valves of Guzman of the rectum with no polyps or any neoplasms identified. We then proceeded through the sigmoid colon where mild sigmoid diverticulosis identified. There were no mucosal inflammatory changes to indicate any active diverticulitis. The endoscope was then advanced through the descending colon to the splenic flexure where a small hyperplastic polyp 1 to 2 mm in size identified. This was biopsied and destroyed using forceps and cautery with visualization of good hemostasis. The endoscope was then advanced through the transverse and ascending colon to the cecum. These segments were normal. No other lesions identified. The endoscope was then slowly withdrawn while taking a second look and suctioning of residual air with no additional findings. The patient tolerated the procedure well. We did not find any lesions that would cause a change in bowel habits; however, due to age and maybe change in diet, she may have developed these symptoms. We will recommend a high fiber diet with the findings of the diverticulosis with at least 25 to 30 grams of fiber per day as well as at least 64 fluid ounces of water daily to promote soft stools on a daily basis. Job ID: [id number] DocumentID: [id number] Dictated Date: 11/25/2017 13:05:50 Assistant Professor Of Archaeology Date: 11/25/2017 18:05:41 Dictated By: VERONA BIRD MD MTDD
== END 2017-11-25 14:05 | disposition home or self-care (01) ==
LOC: ENDO 10:53
PROVIDERS: ATTEND Surgery
DX: K63.5 Polyp of colon (principal); R19.4 Change in bowel habit; K64.0 First degree hemorrhoids; K57.30 Diverticulosis of large intestine without perforation or abscess without bleeding; E11.9 Type 2 diabetes mellitus without complications; I10 Essential (primary) hypertension; E78.00 Pure hypercholesterolemia, unspecified; Z85.3 Personal history of malignant neoplasm of breast; Z79.84 Long term (current) use of oral hypoglycemic drugs; Z79.899 Other long term (current) drug therapy

== ENCOUNTER → 2017-12-01 | Outpatient (CLI) | payer MEDICARE, OTHER ==
--- NOTE | 2017-12-01 16:23 | Diagnostic Imaging Report ---
PROCEDURE: US Gallbladder. TECHNIQUE: Multiple real-time grayscale images were obtained over the right upper quadrant in various projections. INDICATION: Right upper quadrant pain, diarrhea. COMPARISON: There are no prior studies available for comparison. FINDINGS: The gallbladder is not fully distended, but the gallbladder wall does not seem to be abnormally thickened. There is no evidence for cholelithiasis, and there is no pericholecystic fluid to suggest acute cholecystitis. The common bile duct was obscured by bowel gas. The liver is prominent and somewhat more echogenic than usually seen. This appearance does suggest fatty metamorphosis. There is no focal mass involving the liver, and the biliary tree is not abnormally dilated. The pancreas and right kidney are within normal limits. IMPRESSION: 1. There is no acute abnormality of the right upper quadrant. 2. If clinical concern regarding an underlying abnormality of the gallbladder persists, then a nuclear medicine hepatobiliary scan would be recommended for further study. Dictated by: Dictated on workstation # [id number]
== END ==
LOC: RAD 08:43
PROVIDERS: ATTEND Surgery
DX: R10.11 Right upper quadrant pain (principal); R19.7 Diarrhea, unspecified
CPT/HCPCS: 76705

== ENCOUNTER → 2017-12-05 | Outpatient (CLI) | payer MEDICARE, OTHER ==
[~2017-12-05] MED LIST changes: +CATHETER FLUSH 10 ML SYR IV PRN
--- NOTE | 2017-12-05 12:31 | Diagnostic Imaging Report ---
INDICATION: Right upper quadrant pain and diarrhea. TECHNIQUE: The patient was administered 5.1 mCi of technetium 99m Choletec and imaging over the abdomen was performed. At 1 hour, the patient ingested 8 ounces of Ensure and a gallbladder ejection fraction was calculated. FINDINGS: There is homogeneous uptake of activity by the liver. Prompt excretion of activity into the common duct and gallbladder is seen. There is normal passage of activity into the small bowel. The gallbladder ejection fraction is calculated to be 83%. IMPRESSION: Normal HIDA scan and gallbladder ejection fraction. Dictated by: Dictated on workstation # [id number]
== END ==
LOC: CARD 08:52
PROVIDERS: ATTEND Surgery
DX: R10.11 Right upper quadrant pain (principal); R19.7 Diarrhea, unspecified
CPT/HCPCS: 78227

== ENCOUNTER → 2017-12-08 | Outpatient (CLI) | payer MEDICARE, OTHER ==
[~2017-12-08] MED LIST changes: -CATHETER FLUSH 10 ML SYR IV PRN
--- NOTE | 2017-12-08 12:44 | Diagnostic Imaging Report ---
INDICATION: Routine screening. COMPARISON is made with prior mammograms from 12/06/2016 and 12/05/2015. TECHNIQUE: 2-D and 3-D bilateral screening mammography was performed with CAD. FINDINGS: Both breasts are heterogeneously dense, limiting the sensitivity of mammography. Post-therapeutic changes in the left breast are stable. Biopsy clip in the outer left breast is again seen. The right breast appears stable. No mass or malignant appearing microcalcifications are seen. The axillae are unremarkable. IMPRESSION: BI-RADS category 2 No mammographic features suspicious for malignancy are identified. ACR BI-RADS Category 2: Benign findings. Result letter will be mailed to the patient. Note: At least 10% of breast cancer is not imaged by mammography. Dictated by: Dictated on workstation # [id number]
== END ==
LOC: RAD 09:39
PROVIDERS: ATTEND Internal Medicine Hematology & Oncology
DX: Z12.31 Encounter for screening mammogram for malignant neoplasm of breast (principal); Z85.3 Personal history of malignant neoplasm of breast
CPT/HCPCS: 77067

== ENCOUNTER 2017-12-19 08:49 | Outpatient (RCR) | payer MEDICARE, OTHER ==
[2017-12-19 08:49] LABS: WHITE BLOOD COUNT 5.9 10^3/uL (4.3-11.0)
[2017-12-19 08:50] LABS: BASOPHILS % (AUTO) 0 % (0-10); EOSINOPHILS # (AUTO) 0.1 10^3/uL (0.0-0.3); EOSINOPHILS % (AUTO) 2 % (0-10); HEMATOCRIT 39 % (35-52); HEMOGLOBIN 13.3 G/DL (11.5-16.0); LYMPHOCYTES # (AUTO) 1.6 X 10^3 (1.0-4.0); LYMPHOCYTES % (AUTO) 28 % (12-44); MEAN CORPUSCULAR HEMOGLOBIN 31 PG (25-34); MEAN CORPUSCULAR HGB CONC 35 G/DL (32-36); MEAN CORPUSCULAR VOLUME 89 FL (80-99); MEAN PLATELET VOLUME 9.9 FL (7.4-10.4); MONOCYTES # (AUTO) 0.5 X 10^3 (0.0-1.0); MONOCYTES % (AUTO) 9 % (0-12); NEUTROPHILS # (AUTO) 3.6 X 10^3 (1.8-7.8); NEUTROPHILS % (AUTO) 61 % (42-75); PLATELET COUNT 230 10^3/uL (130-400); RED BLOOD COUNT 4.36 10^6/uL (4.35-5.85); RED CELL DISTRIBUTION WIDTH 13.2 % (10.0-14.5)
[2017-12-19 09:10] LABS: ALANINE AMINOTRANSFERASE 34 U/L (0-55); ALBUMIN 4.4 GM/DL (3.2-4.5); ALKALINE PHOSPHATASE 78 U/L (40-136); BILIRUBIN,TOTAL 0.7 MG/DL (0.1-1.0); BUN/CREATININE RATIO 14; CALCIUM 9.9 MG/DL (8.5-10.1); CARBON DIOXIDE 23 MMOL/L (21-32); CHLORIDE 107 MMOL/L (98-107); CREATININE SERUM 0.87 MG/DL (0.60-1.30); GFR ESTIMATED > 60; GLUCOSE 165 MG/DL (70-105); POTASSIUM 4.3 MMOL/L (3.6-5.0); SODIUM 143 MMOL/L (135-145); TOTAL PROTEIN 7.4 GM/DL (6.4-8.2)
== END 2018-03-19 | disposition home or self-care (01) ==
LOC: ONC 08:49
PROVIDERS: ATTEND Internal Medicine Hematology & Oncology
DX: C50.412 Malignant neoplasm of upper-outer quadrant of left female breast (principal); M81.0 Age-related osteoporosis without current pathological fracture; Z17.0 Estrogen receptor positive status [ER+]; Z79.811 Long term (current) use of aromatase inhibitors; Z79.899 Other long term (current) drug therapy; Z92.21 Personal history of antineoplastic chemotherapy
CPT/HCPCS: 36415; 80053; 85025; 99213

== ENCOUNTER → 2018-12-11 | Outpatient (CLI) | payer MEDICARE, OTHER ==
[~2018-12-11] MED LIST changes: -ALEN70TA47 PO; +ALEN70TA5 PO; +LOSA50TA63 PO; -LOSA50TA7 PO; -ROSU20TA31 PO; +ROSU20TA32 PO
--- NOTE | 2018-12-11 11:25 | Diagnostic Imaging Report ---
INDICATION: Routine screening. COMPARISON: 12/08/2017 and 12/06/2016. TECHNIQUE: 2D and 3D bilateral screening mammography was performed with CAD. FINDINGS: Scattered fibroglandular densities are identified bilaterally. Post biopsy changes in the left breast are again noted. There is a marker clip in the left breast, unchanged. No mass or malignant appearing microcalcifications are seen. There are benign parenchymal and vascular calcifications. The axillae are unremarkable. IMPRESSION: No mammographic features suspicious for malignancy are identified. ACR BI-RADS Category 2: Benign findings. Result letter will be mailed to the patient. Note: At least 10% of breast cancer is not imaged by mammography. Dictated by: Dictated on workstation # [id number]
== END ==
LOC: RAD 07:12
PROVIDERS: ATTEND Nurse Practitioner Adult Health
DX: Z12.31 Encounter for screening mammogram for malignant neoplasm of breast (principal); C50.412 Malignant neoplasm of upper-outer quadrant of left female breast; Z98.890 Other specified postprocedural states
CPT/HCPCS: 77067

== ENCOUNTER → 2019-01-10 | Outpatient (CLI) | payer MEDICARE, OTHER ==
[2019-01-10 09:34] LABS: BASOPHILS % (AUTO) 0 % (0-10); EOSINOPHILS # (AUTO) 0.2 10^3/uL (0.0-0.3); EOSINOPHILS % (AUTO) 4 % (0-10); HEMATOCRIT 41 % (35-52); HEMOGLOBIN 13.4 G/DL (11.5-16.0); LYMPHOCYTES # (AUTO) 1.5 X 10^3 (1.0-4.0); LYMPHOCYTES % (AUTO) 30 % (12-44); MEAN CORPUSCULAR HEMOGLOBIN 30 PG (25-34); MEAN CORPUSCULAR HGB CONC 32 G/DL (32-36); MEAN CORPUSCULAR VOLUME 92 FL (80-99); MEAN PLATELET VOLUME 10.4 FL (7.4-10.4); MONOCYTES # (AUTO) 0.5 X 10^3 (0.0-1.0); MONOCYTES % (AUTO) 10 % (0-12); NEUTROPHILS # (AUTO) 2.8 X 10^3 (1.8-7.8); NEUTROPHILS % (AUTO) 56 % (42-75); PLATELET COUNT 232 10^3/uL (130-400); RED CELL DISTRIBUTION WIDTH 13.3 % (10.0-14.5); WHITE BLOOD COUNT 5.1 10^3/uL (4.3-11.0)
[2019-01-10 09:56] LABS: ALBUMIN 4.1 GM/DL (3.2-4.5); BILIRUBIN,TOTAL 0.5 MG/DL (0.1-1.0); CALCIUM 9.9 MG/DL (8.5-10.1); CREATININE SERUM 0.97 MG/DL (0.60-1.30); POTASSIUM 4.7 MMOL/L (3.6-5.0)
== END ==
LOC: EDSTATUS 10-09 09:22 → ONC 09:24
PROVIDERS: ATTEND Internal Medicine Hematology & Oncology
DX: Z01.89 Encounter for other specified special examinations (principal)
CPT/HCPCS: 36415; 80053; 85025; 99213

== ENCOUNTER → 2019-04-23 | Outpatient (CLI) | payer MEDICARE, OTHER ==
[~2019-04-23] MED LIST changes: +OXYB5TAB13 PO; -OXYB5TAB9 PO
[2019-04-23 17:48] LABS: HEMOGLOBIN 13.3 G/DL (11.5-16.0); MEAN PLATELET VOLUME 10.7 FL (7.4-10.4); RED CELL DISTRIBUTION WIDTH 12.4 % (10.0-14.5); WHITE BLOOD COUNT 6.2 10^3/uL (4.3-11.0)
[2019-04-23 18:13] LABS: ALANINE AMINOTRANSFERASE 37 U/L (0-55); ALBUMIN 4.2 GM/DL (3.2-4.5); ALKALINE PHOSPHATASE 106 U/L (40-136); BILIRUBIN,TOTAL 0.4 MG/DL (0.1-1.0); BUN/CREATININE RATIO 16; CALCIUM 9.8 MG/DL (8.5-10.1); CARBON DIOXIDE 25 MMOL/L (21-32); CHLORIDE 106 MMOL/L (98-107); CREATINE KINASE 80 U/L (29-168); CREATININE SERUM 0.86 MG/DL (0.60-1.30); GFR ESTIMATED > 60; GLUCOSE 139 MG/DL (70-105); POTASSIUM 4.2 MMOL/L (3.6-5.0); SODIUM 140 MMOL/L (135-145); TOTAL PROTEIN 7.1 GM/DL (6.4-8.2)
--- NOTE | 2019-04-23 19:13 | Diagnostic Imaging Report ---
INDICATION: Shortness of breath Portable chest 7:03 PM Heart size and pulmonary vascularity are normal. Lungs are clear. There are no effusions or pneumothoraces. IMPRESSION: Negative chest Dictated by: Dictated on workstation # [id number]
== END ==
LOC: LAB 17:29
PROVIDERS: ATTEND Internal Medicine
DX: D64.9 Anemia, unspecified (principal); R06.02 Shortness of breath
CPT/HCPCS: 36415; 71045; 80053; 82550; 83880; 84484; 85027; 85379; 85652; 93005

== ENCOUNTER → 2019-05-03 | Outpatient (CLI) | payer MEDICARE, OTHER ==
[~2019-05-03] VITALS: Ht 177 cm; Wt 90.0 kg
[~2019-05-03] MED LIST changes: +CATHETER FLUSH 10 ML SYR IV PRN; +REGADENOSON 0.4 MG/5 ML SYR (LEXISCAN) IV ONE
[2019-05-03 07:53] VITALS: BP 133/79
--- NOTE | 2019-05-03 14:11 | STRESS TEST ---
DATE OF SERVICE: 05/03/2019 NUCLEAR MYOVIEW REPORT REFERRING PHYSICIAN: Dr. Armstrong. In summary, the patient was injected with 10.98 mCi of technetium-99 Myoview and the resting images were acquired. Then, with peak stress level, a stress dose of 29.3 mCi of technetium-99 were injected and the stress images were acquired. The resting and stress images were acquired and reviewed in three projections. Review of the images showed motion artifact. There is no significant ischemia or infarction noted. SSS is 4, SDS 3, TID value 0.87. On the gated images, the left ventricle appeared to be normal size, normal contractility, calculated ejection fraction 69%. CONCLUSION: 1. Breast attenuation with motion artifact, no significant ischemia or infarction on SPECT images. 2. Normal left ventricular size with normal contractility. Calculated ejection fraction is 69%. Job ID: [id number] DocumentID: [id number] Dictated Date: 05/03/2019 13:03:35 Restaurant Inspector Date: 05/03/2019 14:10:27 Dictated By: STEFANIE VEGAS MD
== END ==
LOC: CARD 06:54
PROVIDERS: ATTEND Internal Medicine
DX: R07.9 Chest pain, unspecified (principal); R06.02 Shortness of breath
CPT/HCPCS: 78452; 93017

== ENCOUNTER → 2019-05-09 | Outpatient (CLI) | payer MEDICARE, OTHER ==
[~2019-05-09] MED LIST changes: -CATHETER FLUSH 10 ML SYR IV PRN; -REGADENOSON 0.4 MG/5 ML SYR (LEXISCAN) IV ONE
== END ==
LOC: CARD 07:59
PROVIDERS: ATTEND Internal Medicine
DX: I08.0 Rheumatic disorders of both mitral and aortic valves (principal)
CPT/HCPCS: 93306

== ENCOUNTER → 2019-07-10 | Outpatient (CLI) | payer MEDICARE, OTHER ==
--- NOTE | 2019-07-10 13:01 | Diagnostic Imaging Report ---
INDICATION: Screening for osteoporosis. COMPARISON: 06/23/2017 FINDING The bone mineral density of the hips and spine was measured. The study was compared to the prior exam of 06/23/2017. The total T score for the spine is -0.7. On the prior exam, the T score is -1.2. The total T score for the left hip is -0.9 and for the right hip -1.0. On the prior exam, the T scores were -0.7 for each hip. The T score for each femoral neck is -1.8. On the prior exam, the T score for the left femoral neck was -1.6 and -1.7 for the right femoral neck. AP Spine L1-L4: [BMD (g/cm2): 1.117] [T-Score: -0.7] [Z-Score: 0.0] [BMD Previous: 1.061] [BMD % Change: 5.3] LT Hip Neck: [BMD (g/cm2): 0.789] [T-Score: -1.8] [Z-Score: -0.8] LT Hip Total: [BMD (g/cm2):0.896] [T-Score:-0.9] [Z-Score: -0.2] [BMD Previous: 0.924] [BMD % Change: -3.0] RT Hip Neck: [BMD (g/cm2):0.794] [T-Score:-1.8] [Z-Score:-0.8] RT Hip Total: [BMD (g/cm2):0.881] [T-score:-1.0] [Z-Score:-0.4] [BMD Previous:0.922] [BMD % Change:-4.4] *Indicates significant change from prior examination based on 95% confidence level. World Health Organization criteria for BMD interpretation classify patients as Normal (T-score at or above -1.0), Osteopenic (T-score between -1.0 and -2.5) or Osteoporotic (T-score at or below -2.5). LIMITATIONS AND MODIFICATION: None. FRACTURE RISK (FRAX SCORE): The ten year probability of (%): Major Osteoporotic Fracture: [NA] Hip Fracture: [NA] IMPRESSION: 1. The bone mineral density of the spine has increased since the prior exam and the T score value now falls within the range of normal. 2. Conversely, however there has been a slight decrease in the bone mineral density of the total hip scores and of the femoral necks. The total hip T scores do fall at the low end of normal but the T score for the femoral necks indicates osteopenia. 3. See below National Osteoporosis Foundation guidelines on when to potentially initiate pharmacologic therapy. Based on the National Osteoporosis Foundation Guidelines, pharmacologic treatment should be initiated in any of the following, unless clinical conditions suggest otherwise: * Any patient with prior fragility fracture of the hip or vertebrae. A spine fracture indicates 5X risk for subsequent spine fracture and 2X risk for subsequent hip fracture. * Osteoporosis (T-score <-2.5). * Postmenopausal women and men age 50 and older with low bone mass/osteopenia (T-score between -1.0 and -2.5) by DXA and 10-year major osteoporotic fracture greater than 20% or a 10-year probability of hip fracture greater than 3%. These fracture risks are supplied above in the FRAX score, if applicable. * Clinician judgement and/or patient preferences may indicate treatment for people with 10-year fracture probabilities above or below these levels. Dictated by: Dictated on workstation # [id number]
== END ==
LOC: RAD 10:48
PROVIDERS: ATTEND Internal Medicine Hematology & Oncology
DX: M85.851 Other specified disorders of bone density and structure, right thigh (principal); M85.852 Other specified disorders of bone density and structure, left thigh; C50.112 Malignant neoplasm of central portion of left female breast; Z79.811 Long term (current) use of aromatase inhibitors; Z78.0 Asymptomatic menopausal state
CPT/HCPCS: 77080

== ENCOUNTER → 2019-07-17 | Outpatient (CLI) | payer MEDICARE, OTHER ==
[2019-07-17 10:40] LABS: BASOPHILS % (AUTO) 0 % (0-10); EOSINOPHILS # (AUTO) 0.2 10^3/uL (0.0-0.3); EOSINOPHILS % (AUTO) 2 % (0-10); HEMATOCRIT 40 % (35-52); HEMOGLOBIN 13.4 G/DL (11.5-16.0); LYMPHOCYTES # (AUTO) 1.8 X 10^3 (1.0-4.0); LYMPHOCYTES % (AUTO) 23 % (12-44); MEAN CORPUSCULAR HEMOGLOBIN 29 PG (25-34); MEAN CORPUSCULAR HGB CONC 33 G/DL (32-36); MEAN CORPUSCULAR VOLUME 88 FL (80-99); MEAN PLATELET VOLUME 10.3 FL (7.4-10.4); MONOCYTES # (AUTO) 0.5 X 10^3 (0.0-1.0); MONOCYTES % (AUTO) 7 % (0-12); NEUTROPHILS # (AUTO) 5.4 X 10^3 (1.8-7.8); NEUTROPHILS % (AUTO) 68 % (42-75); PLATELET COUNT 230 10^3/uL (130-400); RED CELL DISTRIBUTION WIDTH 13.2 % (10.0-14.5); WHITE BLOOD COUNT 7.9 10^3/uL (4.3-11.0)
[2019-07-17 11:10] LABS: ALBUMIN 4.2 GM/DL (3.2-4.5); BILIRUBIN,TOTAL 0.5 MG/DL (0.1-1.0); CALCIUM 9.3 MG/DL (8.5-10.1); CREATININE SERUM 0.99 MG/DL (0.60-1.30); POTASSIUM 4.2 MMOL/L (3.6-5.0); TOTAL PROTEIN 7.2 GM/DL (6.4-8.2)
== END ==
LOC: ONC 10:31
PROVIDERS: ATTEND Internal Medicine Hematology & Oncology
DX: E55.9 Vitamin D deficiency, unspecified (principal)
CPT/HCPCS: 80053; 82306; 85025; 99213

== ENCOUNTER 2019-11-07 05:50 | Outpatient (CLI) | payer MEDICARE, OTHER ==
[~2019-11-07] VITALS: Ht 177 cm; Wt 92.7 kg
[2019-11-07] MEDS ORDERED: CHOL200074 PO (12:24)
[2019-11-07] MEDS ORDERED: ASPI-999 PO (12:24)
[2019-11-07] MEDS ORDERED: PANT40TA3 PO (12:24)
== END 2019-11-07 14:10 ==
LOC: PREOP 05:50
PROVIDERS: ATTEND Specialist
DX: Z01.818 Encounter for other preprocedural examination (principal)

== ENCOUNTER 2019-11-09 07:26 | Day surgery (SDC) | payer MEDICARE, OTHER ==
[~2019-11-09] VITALS: Ht 177 cm; Wt 92.7 kg
[~2019-11-09 07:26] MED LIST changes: +ASPI-999 PO; +CHOL200074 PO; +PANT40TA3 PO
[2019-11-09 07:45] VITALS: BP 137/80
[2019-11-09] MEDS ORDERED: POVIDONE (BETADINE) OPHTH SOLN 5% 30 ML OP ONE (07:45)
[2019-11-09] MEDS ORDERED: LIDOCAINE PF 1% 2 ML VIAL IR PRN (07:45)
[2019-11-09] MEDS ORDERED: MOXIFLOXACIN OPHTH SOLN 5 MG/ML 0.3 ML SYRINGE OP ONE (07:45)
[2019-11-09] MEDS ORDERED: TIMOLOL MALEATE 0.5% 5 ML (TIMOPTIC) BTL OU PRN (07:45)
[2019-11-09] MEDS: TETRACAINE 0.5% OPHTH SOLN 4 ML BTL (SINGLE DOSE ONLY) OU PRN ×4 (07:50→08:20)
[2019-11-09] MEDS: PHENYLEPHRINE 10% OPHTH (NEO-SYN) 5 ML BTL OU SCH ×3 (08:06→08:20)
[2019-11-09] MEDS: CYCLOPENTOLATE 1% (CYCLOGYL) 2 ML DROPS OP SCH ×3 (08:06→08:20)
[2019-11-09] MEDS ORDERED: MIDAZOLAM 2 MG/2 ML (VERSED) VIAL ONE (08:38)
--- NOTE | 2019-11-09 08:41 | Ophthalmologist Pre-Op Note ---
Pre-Operative Progress Note H&P Reviewed The H&P was reviewed, patient examined and no changes noted. Date H&P Reviewed: Nov 09, 2019 Time H&P Reviewed: 08:40 Pre-Op Dx Cataract, Right Eye BASIL PARSON MD Nov 09, 2019 08:40
[2019-11-09] MEDS ORDERED: acetaZOLAMIDE ER 500 MG CAP (DIAMOX SEQUELS) PO ONE (09:00)
--- NOTE | 2019-11-09 09:02 | Ophthalmology Operative Report ---
Cataract removal/placement IOL PREOPERATIVE DIAGNOSIS: Cataract Right Eye POSTOPERATIVE DIAGNOSIS: Cataract Right Eye PROCEDURE: Cataract removal and placement of posterior chamber implant, right eye SURGEON: Mehdi Parson ANESTHESIA: Topical with sedation COMPLICATIONS: None ESTIMATED BLOOD LOSS: Minimal DESCRIPTION OF PROCEDURE: After proper informed consent was obtained, the patient, a 69 female, was taken to the Operating Room and the right eye was anesthetized with tetracaine. The right eye was then prepped and draped in the usual manner. A wire lid speculum was placed. A paracentesis was made at the left hand position. Preservative free lidocaine was injected into the anterior chamber followed by viscoelastic. A clear corneal incision was made in the temporal position. A capsulorrhexis was preformed and the central nuclear and cortical material were removed. The posterior capsule was polished and Davidson 20.5 AU00T0 IOL was placed into the capsular bag. The residual viscoelastic was aspirated and balanced saline solution was injected into the anterior chamber. Moxifloxacin was injected into the anterior chamber. The wound was checked and found to be water tight. The patient tolerated the procedure well without complications. MEHDI PARSON MD Nov 09, 2019 09:02
[2019-11-09 09:10] VITALS: BP 121/74
--- NOTE | 2019-11-09 10:46 | Anesthesia-General Post-Op ---
MAC Patient Condition Mental Status/LOC: Same as Preop Cardiovascular: Satisfactory Nausea/Vomiting: Absent Respiratory: Satisfactory Pain: Controlled Complications: Absent Post Op Complications Complications None Follow Up Care/Instructions Patient Instructions None needed. Anesthesiology Discharge Order Discharge Order Patient is doing well, no complaints, stable vital signs, no apparent adverse anesthesia problems. No complications reported per nursing. YUSUF MEANS CRNA Nov 09, 2019 10:46
== END 2019-11-09 09:10 | disposition home or self-care (01) ==
LOC: SDC 07:26
PROVIDERS: ATTEND Specialist
DX: E11.36 Type 2 diabetes mellitus with diabetic cataract (principal); H25.11 Age-related nuclear cataract, right eye; E78.00 Pure hypercholesterolemia, unspecified; I10 Essential (primary) hypertension; E78.5 Hyperlipidemia, unspecified; F32.9 Major depressive disorder, single episode, unspecified; K21.9 Gastro-esophageal reflux disease without esophagitis; Z79.82 Long term (current) use of aspirin; Z79.84 Long term (current) use of oral hypoglycemic drugs; Z79.899 Other long term (current) drug therapy
CPT/HCPCS: 66984; 82962; V2632

== ENCOUNTER 2019-11-23 06:55 | Day surgery (SDC) | payer MEDICARE, OTHER ==
[~2019-11-23] VITALS: Ht 177 cm; Wt 92.7 kg
[~2019-11-23 06:55] MED LIST changes: -PANT40TA3 PO; +PANT40TA52 PO
[2019-11-23] MEDS ORDERED: TIMOLOL MALEATE 0.5% 5 ML (TIMOPTIC) BTL OU PRN (07:00)
[2019-11-23] MEDS ORDERED: MOXIFLOXACIN OPHTH SOLN 5 MG/ML 0.3 ML SYRINGE OP ONE (07:00)
[2019-11-23] MEDS ORDERED: POVIDONE (BETADINE) OPHTH SOLN 5% 30 ML OP ONE (07:00)
[2019-11-23] MEDS ORDERED: LIDOCAINE PF 1% 2 ML VIAL IR PRN (07:00)
[2019-11-23] MEDS: TETRACAINE 0.5% OPHTH SOLN 4 ML BTL (SINGLE DOSE ONLY) OU PRN ×4 (07:06→07:24)
[2019-11-23 07:07] VITALS: BP 135/72
[2019-11-23] MEDS: PHENYLEPHRINE 10% OPHTH (NEO-SYN) 5 ML BTL OU SCH ×3 (07:14→07:24)
[2019-11-23] MEDS: CYCLOPENTOLATE 1% (CYCLOGYL) 2 ML DROPS OP SCH ×3 (07:14→07:24)
[2019-11-23] MEDS ORDERED: MIDAZOLAM 2 MG/2 ML (VERSED) VIAL ONE (08:13)
--- NOTE | 2019-11-23 08:21 | Ophthalmologist Pre-Op Note ---
Pre-Operative Progress Note H&P Reviewed The H&P was reviewed, patient examined and no changes noted. Date H&P Reviewed: Nov 23, 2019 Time H&P Reviewed: 08:11 Pre-Op Dx Cataract, Left Eye BASIL PARSON MD Nov 23, 2019 08:21
[2019-11-23] MEDS ORDERED: acetaZOLAMIDE ER 500 MG CAP (DIAMOX SEQUELS) PO ONE (08:30)
--- NOTE | 2019-11-23 08:34 | Ophthalmology Operative Report ---
Cataract removal/placement IOL PREOPERATIVE DIAGNOSIS: Cataract Left Eye POSTOPERATIVE DIAGNOSIS: Cataract Left Eye PROCEDURE: Cataract removal and placement of posterior chamber implant, left eye SURGEON: Mehdi Parson ANESTHESIA: Topical with sedation COMPLICATIONS: None ESTIMATED BLOOD LOSS: Minimal DESCRIPTION OF PROCEDURE: After proper informed consent was obtained, the patient, a 69 female, was taken to the Operating Room and the left eye was anesthetized with tetracaine. The left eye was then prepped and draped in the usual manner. A wire lid speculum was placed. A paracentesis was made at the left hand position. Preservative free lidocaine was injected into the anterior chamber followed by viscoelastic. A clear corneal incision was made in the temporal position. A capsulorrhexis was preformed and the central nuclear and cortical material were removed. The posterior capsule was polished and an Davidson 20.5 AU00T0 was placed into the capsular bag. The residual viscoelastic was aspirated and balanced saline solution was injected into the anterior chamber. Moxifloxacin was injected into the anterior chamber. The wound was checked and found to be water tight. The patient tolerated the procedure well without complications. MEHDI PARSON MD Nov 23, 2019 08:34
[2019-11-23 08:45] VITALS: BP 128/85
--- NOTE | 2019-11-23 13:04 | Anesthesia-General Post-Op ---
MAC Patient Condition Mental Status/LOC: Same as Preop Cardiovascular: Satisfactory Nausea/Vomiting: Absent Respiratory: Satisfactory Pain: Controlled Complications: Absent Post Op Complications Complications None Follow Up Care/Instructions Patient Instructions None needed. Anesthesiology Discharge Order Discharge Order Patient is doing well, no complaints, stable vital signs, no apparent adverse anesthesia problems. No complications reported per nursing. SANTIAGO ULLOA CRNA Nov 23, 2019 13:04
== END 2019-11-23 08:45 | disposition home or self-care (01) ==
LOC: SDC 06:55
PROVIDERS: ATTEND Specialist
DX: H25.12 Age-related nuclear cataract, left eye (principal); E11.36 Type 2 diabetes mellitus with diabetic cataract; K21.9 Gastro-esophageal reflux disease without esophagitis; F32.9 Major depressive disorder, single episode, unspecified; I10 Essential (primary) hypertension; E78.00 Pure hypercholesterolemia, unspecified; E66.9 Obesity, unspecified; Z68.29 Body mass index [BMI] 29.0-29.9, adult; Z79.899 Other long term (current) drug therapy; Z80.9 Family history of malignant neoplasm, unspecified
CPT/HCPCS: 66984; V2632

== ENCOUNTER → 2019-12-24 | Outpatient (CLI) | payer MEDICARE, OTHER ==
--- NOTE | 2019-12-24 11:20 | Diagnostic Imaging Report ---
EXAMINATION: Digital mammogram INDICATION: Bilateral screening This study was compared to prior exams of 12/11/2018 and 12/08/2017.. By history the patient has had a diagnosis of breast cancer established on the left in 2010. She also underwent reduction mammoplasty on the left in 2010. The postsurgical changes involving the left breast seen previously are again evident and no different. There is no sign of recurrent malignancy on the left. The fibroglandular tissue in the right breast is heterogeneously dense. This does limit the sensitivity of this exam. Tomographic images do suggest mild architectural distortion in the retroareolar region of the right breast. This finding may be secondary to superimposition of fibroglandular tissue as the overall appearance of the breast does not seem to have changed significantly since the prior study. Even so, I would recommend that a compression view of this area be obtained in the CC and MLO projections for further study. Ultrasound should be performed as well. IMPRESSION: 1. There is no evidence for recurrent malignancy involving the left breast. 2. Additional mammographic views and ultrasound of the right breast would be recommended for further study. ACR BI-RADS Category 0: Incomplete. (Needs additional imaging evaluation). Result letter will be mailed to the patient. Note: At least 10% of breast cancer is not imaged by mammography. Dictated by: Dictated on workstation # [id number]
== END ==
LOC: RAD 10:30
PROVIDERS: ATTEND Nurse Practitioner Adult Health
DX: Z12.31 Encounter for screening mammogram for malignant neoplasm of breast (principal); Z85.3 Personal history of malignant neoplasm of breast
CPT/HCPCS: 77063; 77067

== ENCOUNTER → 2019-12-28 | Outpatient (CLI) | payer MEDICARE, OTHER ==
--- NOTE | 2019-12-28 13:07 | Diagnostic Imaging Report ---
INDICATION: Right breast architectural distortion. Patient presents for additional views. Correlation is made with recent screening study from 12/24/2019. Unilateral right 2-D and 3-D diagnostic mammography was performed including spot compression CC and ML views as well as conventional 90 degree lateral views. No suspicious abnormality is seen. There appears to be normal dispersion of fibroglandular elements with additional views. No underlying mass or suspicious microcalcifications are seen. IMPRESSION: BI-RADS 0 No mammographic features suspicious for malignancy are identified. Even so, sonographic interrogation retroareolar right breast is recommended and will be performed today. ACR BI-RADS Category 0: Incomplete. (Needs additional imaging evaluation). Result letter will be mailed to the patient. Note: At least 10% of breast cancer is not imaged by mammography. Dictated by: Dictated on workstation # [id number]
--- NOTE | 2019-12-28 13:07 | Diagnostic Imaging Report ---
INDICATION: Architectural distortion right breast. CORRELATION is made with a diagnostic study earlier the same day and a screening mammogram from 12/24/2019. Sonographic interrogation of the retroareolar region was performed. No sonographic abnormality is detected. No solid or cystic mass is detected. IMPRESSION: BI-RADS Category 1. No sonographic abnormality is detected. The patient may return to routine annual screening mammography. ACR BI-RADS Category 1: Negative. Result letter will be mailed to the patient. Note: At least 10% of breast cancer is not imaged by mammography. Dictated by: Dictated on workstation # [id number]
== END ==
LOC: RAD 11:59
PROVIDERS: ATTEND Nurse Practitioner Adult Health
DX: R92.8 Other abnormal and inconclusive findings on diagnostic imaging of breast (principal); Z85.3 Personal history of malignant neoplasm of breast
CPT/HCPCS: 76642; 77065; G0279

== ENCOUNTER → 2020-07-03 | Outpatient (CLI) | payer MEDICARE, OTHER ==
[~2020-07-03] MED LIST changes: -ALEN70TA5 PO; +ALEN70TA80 PO
[2020-07-03 10:44] LABS: BASOPHILS % (AUTO) 1 % (0-10); EOSINOPHILS # (AUTO) 0.2 10^3/uL (0.0-0.3); EOSINOPHILS % (AUTO) 3 % (0-10); HEMATOCRIT 41 % (35-52); LYMPHOCYTES # (AUTO) 1.3 10^3/uL (1.0-4.0); LYMPHOCYTES % (AUTO) 24 % (12-44); MEAN CORPUSCULAR HEMOGLOBIN 29 pg (25-34); MEAN CORPUSCULAR HGB CONC 32 g/dL (32-36); MEAN CORPUSCULAR VOLUME 92 fL (80-99); MEAN PLATELET VOLUME 10.8 fL (9.0-12.2); MONOCYTES # (AUTO) 0.4 10^3/uL (0.0-1.0); MONOCYTES % (AUTO) 7 % (0-12); NEUTROPHILS # (AUTO) 3.6 10^3/uL (1.8-7.8); NEUTROPHILS % (AUTO) 66 % (42-75); PLATELET COUNT 226 10^3/uL (130-400); WHITE BLOOD COUNT 5.5 10^3/uL (4.3-11.0)
[2020-07-03 11:12] LABS: ALANINE AMINOTRANSFERASE 34 U/L (0-55); ALBUMIN 4.1 GM/DL (3.2-4.5); ALKALINE PHOSPHATASE 83 U/L (40-136); BILIRUBIN,TOTAL 0.5 MG/DL (0.1-1.0); BUN/CREATININE RATIO 21; CALCIUM 9.2 MG/DL (8.5-10.1); CARBON DIOXIDE 21 MMOL/L (21-32); CHLORIDE 106 MMOL/L (98-107); CREATININE SERUM 0.89 MG/DL (0.60-1.30); GFR ESTIMATED > 60; GLUCOSE 242 MG/DL (70-105); POTASSIUM 4.3 MMOL/L (3.6-5.0); SODIUM 139 MMOL/L (135-145); TOTAL PROTEIN 7.1 GM/DL (6.4-8.2)
== END ==
LOC: ONC 10:32
PROVIDERS: ATTEND Internal Medicine Hematology & Oncology
DX: C50.412 Malignant neoplasm of upper-outer quadrant of left female breast (principal); C50.112 Malignant neoplasm of central portion of left female breast; K21.9 Gastro-esophageal reflux disease without esophagitis; E78.00 Pure hypercholesterolemia, unspecified; M85.80 Other specified disorders of bone density and structure, unspecified site; I13.0 Hypertensive heart and chronic kidney disease with heart failure and stage 1 through stage 4 chronic kidney disease, or unspecified chronic kidney disease; N18.9 Chronic kidney disease, unspecified; I50.9 Heart failure, unspecified; Z92.3 Personal history of irradiation; Z90.12 Acquired absence of left breast and nipple; Z92.21 Personal history of antineoplastic chemotherapy; Z98.890 Other specified postprocedural states
CPT/HCPCS: 80053; 85025; G0463; 99213

== ENCOUNTER → 2020-08-07 | Outpatient (CLI) | payer MEDICARE, OTHER ==
--- NOTE | 2020-08-07 10:58 | Diagnostic Imaging Report ---
Indication: Pain and decreased range of motion onto the left shoulder. Time of exam 8:58 AM 3 views left shoulder were obtained. Glenohumeral alignment is normal. Acromioclavicular alignment is normal. There are degenerative changes at the acromion clavicular joint. Acromiohumeral space is normal. No fracture or dislocation is identified. IMPRESSION: Degenerative changes. No acute bony abnormality is detected. Dictated by: Dictated on workstation # [id number]
== END ==
LOC: LAB 08:42
PROVIDERS: ATTEND Internal Medicine
DX: M19.012 Primary osteoarthritis, left shoulder (principal)
CPT/HCPCS: 73030

== ENCOUNTER 2020-10-15 13:39 | Outpatient (RCR) | payer MEDICARE, OTHER | END 2020-10-15 14:16 | disposition home or self-care (01) | PROVIDERS: ATTEND Nurse Practitioner Family | DX: M75.22 Bicipital tendinitis, left shoulder (principal); M75.42 Impingement syndrome of left shoulder; M50.10 Cervical disc disorder with radiculopathy, unspecified cervical region ==

== ENCOUNTER → 2020-10-22 | Outpatient (CLI) | payer MEDICARE, OTHER | LOC: LABNPT 06:52 | PROVIDERS: ATTEND Orthopaedic Surgery | DX: Z01.812 Encounter for preprocedural laboratory examination (principal); Z20.822 Contact with and (suspected) exposure to COVID-19 | CPT/HCPCS: 87635 ==

== ENCOUNTER → 2020-12-24 | Outpatient (CLI) | payer MEDICARE, OTHER ==
--- NOTE | 2020-12-24 10:03 | Diagnostic Imaging Report ---
INDICATION: Routine screening. COMPARISON: 12/24/2019 and 12/11/2018. TECHNIQUE: 2D and 3D bilateral screening mammography was performed with CAD. FINDINGS: Both breasts are heterogeneously dense, limiting the sensitivity of mammography. The parenchymal pattern is stable. No mass or malignant-appearing microcalcifications are seen. There are benign parenchymal and vascular calcifications bilaterally. The axillae are unremarkable. IMPRESSION: No mammographic features suspicious for malignancy are identified. ACR BI-RADS Category 2: Benign findings. Result letter will be mailed to the patient. Note: At least 10% of breast cancer is not imaged by mammography. Dictated by: Dictated on workstation # [id number]
== END ==
LOC: RAD 07:45
PROVIDERS: ATTEND Nurse Practitioner Adult Health
DX: Z12.31 Encounter for screening mammogram for malignant neoplasm of breast (principal)
CPT/HCPCS: 77063; 77067

== ENCOUNTER → 2021-01-07 | Outpatient (CLI) | payer MEDICARE, OTHER ==
[2021-01-07 10:20] LABS: BASOPHILS % (AUTO) 1 % (0-10); EOSINOPHILS # (AUTO) 0.2 10^3/uL (0.0-0.3); EOSINOPHILS % (AUTO) 3 % (0-10); HEMATOCRIT 42 % (35-52); HEMOGLOBIN 13.9 g/dL (11.5-16.0); LYMPHOCYTES # (AUTO) 1.8 10^3/uL (1.0-4.0); LYMPHOCYTES % (AUTO) 28 % (12-44); MEAN CORPUSCULAR HEMOGLOBIN 30 pg (25-34); MEAN CORPUSCULAR HGB CONC 33 g/dL (32-36); MEAN CORPUSCULAR VOLUME 90 fL (80-99); MEAN PLATELET VOLUME 10.7 fL (9.0-12.2); MONOCYTES # (AUTO) 0.6 10^3/uL (0.0-1.0); MONOCYTES % (AUTO) 9 % (0-12); NEUTROPHILS % (AUTO) 60 % (42-75); PLATELET COUNT 255 10^3/uL (130-400); WHITE BLOOD COUNT 6.6 10^3/uL (4.3-11.0)
[2021-01-07 10:46] LABS: ALBUMIN 4.1 GM/DL (3.2-4.5); BILIRUBIN,TOTAL 0.6 MG/DL (0.1-1.0); CALCIUM 9.9 MG/DL (8.5-10.1); CREATININE SERUM 0.91 MG/DL (0.60-1.30); POTASSIUM 4.7 MMOL/L (3.6-5.0); TOTAL PROTEIN 7.4 GM/DL (6.4-8.2)
== END ==
LOC: ONC 10:13
PROVIDERS: ATTEND Internal Medicine Hematology & Oncology
DX: C50.412 Malignant neoplasm of upper-outer quadrant of left female breast (principal); Z79.811 Long term (current) use of aromatase inhibitors; M85.80 Other specified disorders of bone density and structure, unspecified site; K21.9 Gastro-esophageal reflux disease without esophagitis; E78.00 Pure hypercholesterolemia, unspecified; I13.0 Hypertensive heart and chronic kidney disease with heart failure and stage 1 through stage 4 chronic kidney disease, or unspecified chronic kidney disease; N18.9 Chronic kidney disease, unspecified; I50.9 Heart failure, unspecified; E66.9 Obesity, unspecified; Z90.12 Acquired absence of left breast and nipple; Z98.890 Other specified postprocedural states; Z92.21 Personal history of antineoplastic chemotherapy; Z92.3 Personal history of irradiation
CPT/HCPCS: 80053; 85025; G0463; 99213

== ENCOUNTER 2021-01-26 09:30 | Outpatient (RCR) | payer MEDICARE, OTHER | END 2021-03-06 | disposition home or self-care (01) | PROVIDERS: ATTEND Nurse Practitioner Family | DX: Z98.890 Other specified postprocedural states (principal) ==

== ENCOUNTER → 2021-06-04 | Outpatient (CLI) | payer MEDICARE, OTHER ==
--- NOTE | 2021-06-04 15:55 | Diagnostic Imaging Report ---
INDICATION: Left hip pain/back pain COMPARISON: None. FINDINGS: 2 views of the left hip were obtained and show no fractures, dislocations, or other acute bony abnormalities. Joint spaces are well maintained throughout. The soft tissues appear unremarkable. No radiopaque foreign bodies are identified. IMPRESSION: Unremarkable radiographic exam of the left hip. Dictated by: Dictated on workstation # [id number]
--- NOTE | 2021-06-04 15:55 | Diagnostic Imaging Report ---
INDICATION: Back pain. Injury. COMPARISON: 04/07/2017 FINDINGS: Frontal and lateral radiographic views of the lumbar spine were obtained and again show mild dextroscoliotic deformity of the upper lumbar spine. AP static alignment is maintained. There is no significant anteroretrolisthesis. There is no evidence of jumped facets. Vertebral body heights are maintained. There is no acute fracture. Moderate multilevel degenerative changes are noted and consistent intervertebral disc height loss as well as multilevel endplate sclerosis and endplate osteophyte formations. There is also multilevel facet arthropathy. Included small bowel loops are nondistended. Note is made of calcified aortic atherosclerosis. IMPRESSION: 1. Moderate multilevel degenerative changes of the lumbar spine, but no evidence of acute fracture or dislocation. Dictated by: Dictated on workstation # [id number]
== END ==
LOC: RAD 14:50
PROVIDERS: ATTEND Internal Medicine
DX: M47.816 Spondylosis without myelopathy or radiculopathy, lumbar region (principal); M25.552 Pain in left hip
CPT/HCPCS: 72100; 73502

== ENCOUNTER → 2021-10-27 | Outpatient (CLI) | payer MEDICARE, OTHER ==
[~2021-10-27] MED LIST changes: +CATHETER FLUSH 10 ML SYR IV PRN; +HOLD METFORMIN - RECEIVED CONTRAST 20 ML VIAL IV SCH; +IOHEXOL 350 MG/ML 100 ML (OMNIPAQUE 350) VIAL IV ONE; +NS 100 ML (IVPB) BAG IV ONE
[2021-10-27 13:32] LABS: CREATININE SERUM 0.81 MG/DL (0.60-1.30)
--- NOTE | 2021-10-27 19:04 | Diagnostic Imaging Report ---
REASON FOR EXAM: Essential hypertension. Concern for carotid stenosis. TIME OF EXAM: 10/27/2021, 2:35 p.m. COMPARISON: 07/29/2016. TECHNIQUE: Contrast-enhanced thin section helical images were obtained from the mediastinum to the sella with the bolus of contrast timed for the optimal opacification of the arterial structures of the neck per departmental CTA protocol. Postprocessing and retro-reconstruction with coronal and sagittal reformatted images of the angiographic views of the vessels were obtained and were reviewed. 3D reformatted images were generated on a separate workstation and were reviewed. FINDINGS: The visualized portions of the aortic arch demonstrate no evidence of aneurysm or dissection. The origin of the arch vessels is unremarkable. The brachiocephalic artery is normal in course and caliber. The right common carotid origin is unremarkable. The right subclavian artery is normal in course and caliber. There is mild tortuosity of the common and internal carotid arteries. A small amount of atherosclerotic plaque is seen in the bilateral carotid bulbs and proximal internal carotid arteries. No focal stenosis or dissection is seen in the bilateral common and internal carotid arteries. The external carotid arteries are visualized and are unremarkable. The left vertebral artery is dominant. Both vertebral arteries originate from the subclavian arteries. No focal stenosis or dissection in the bilateral vertebral arteries. The osseous structures of the cervical spine are unremarkable. Included views through the lung apices demonstrate no focal consolidation. Included views through the intracranial structures demonstrate no acute abnormalities. IMPRESSION: 1. No evidence of stenosis or dissection in the common and internal carotid arteries. 2. No evidence of stenosis or dissection of the vertebral arteries. Dictated by: Dictated on workstation # [id number]
== END ==
LOC: RAD 11:50
PROVIDERS: ATTEND Internal Medicine Cardiovascular Disease
DX: I11.9 Hypertensive heart disease without heart failure (principal); I25.10 Atherosclerotic heart disease of native coronary artery without angina pectoris; I65.23 Occlusion and stenosis of bilateral carotid arteries
CPT/HCPCS: 36415; 70498; 82565; 84520; 93306

== ENCOUNTER → 2022-08-04 | Outpatient (RCR) | payer MEDICARE, OTHER ==
[~2022-08-04] MED LIST changes: -CATHETER FLUSH 10 ML SYR IV PRN; -HOLD METFORMIN - RECEIVED CONTRAST 20 ML VIAL IV SCH; -IOHEXOL 350 MG/ML 100 ML (OMNIPAQUE 350) VIAL IV ONE; -NS 100 ML (IVPB) BAG IV ONE
== END | disposition home or self-care (01) ==
PROVIDERS: ATTEND Nurse Practitioner Family
DX: M25.551 Pain in right hip (principal); M79.652 Pain in left thigh; R26.89 Other abnormalities of gait and mobility

== ENCOUNTER → 2022-09-03 | Outpatient (RCR) | payer MEDICARE, OTHER | END | disposition home or self-care (01) | PROVIDERS: ATTEND Nurse Practitioner Family | DX: M51.16 Intervertebral disc disorders with radiculopathy, lumbar region (principal); M48.062 Spinal stenosis, lumbar region with neurogenic claudication; M47.26 Other spondylosis with radiculopathy, lumbar region; M79.652 Pain in left thigh ==

== ENCOUNTER → 2022-10-04 | Outpatient (RCR) | payer MEDICARE, OTHER ==
[~2022-10-04] MED LIST changes: -ROSU20TA32 PO; +ROSU20TA73 PO
== END | disposition home or self-care (01) ==
PROVIDERS: ATTEND Nurse Practitioner Family
DX: M51.16 Intervertebral disc disorders with radiculopathy, lumbar region (principal); M48.062 Spinal stenosis, lumbar region with neurogenic claudication; M47.26 Other spondylosis with radiculopathy, lumbar region; E11.9 Type 2 diabetes mellitus without complications

== ENCOUNTER 2022-11-03 09:40 | Outpatient (RCR) | payer MEDICARE, OTHER | END 2022-11-03 13:15 | disposition home or self-care (01) | PROVIDERS: ATTEND Nurse Practitioner Family | DX: M51.36 Other intervertebral disc degeneration, lumbar region (principal); M48.062 Spinal stenosis, lumbar region with neurogenic claudication; M47.816 Spondylosis without myelopathy or radiculopathy, lumbar region ==